=== PATIENT | male | born 1935 | race Caucasian/White ===

== ENCOUNTER 2020-01-10 05:28 | Outpatient (REF) | payer MEDICARE, SELFPAY ==
[2020-01-10 08:09] LABS: MANUAL DIFF FLAG NO
[2020-01-10 08:19] LABS: Basophils Percent Auto 0.2 % (0-2); Eosinophils Absolute Auto 0.2 X10*3/uL (0.0-0.4); Eosinophils Percent Auto 3.7 % (0-4); Hematocrit 33.5 % (42-52); Hemoglobin 11.1 g/dl (14.0-18.0); Imm Gran Abs Auto 0.02 X10*3/uL (0.00-0.03); Imm Gran Pct Auto 0.3 % (0.0-0.4); Lymphocytes Absolute Auto 1.4 X10*3/uL (1.2-4.9); Lymphocytes Percent Auto 21.4 % (20-40); Mean Corpuscular HGB Conc 33.1 g/dl (31.0-36.0); Mean Corpuscular Hemoglobin 31.5 pg (27.0-33.0); Mean Corpuscular Volume 95.2 fL (80-98); Mean Platelet Volume 11.8 fL (9.4-12.4); Monocytes Absolute Auto 0.6 X10*3/uL (0.1-1.2); Monocytes Percent Auto 8.7 % (2-11); Neutrophils Absolute Auto 4.3 X10*3/uL (2.0-8.3); Neutrophils Percent Auto 65.7 % (45-73); Platelet Count 289 X10*3/uL (160-400); Red Blood Count 3.52 X10*6/uL (4.60-5.80); Red Cell Distribution Width 12.4 % (11.0-16.0); White Blood Count 6.5 X10*3/uL (4.8-10.8)
[2020-01-10 08:57] LABS: Alanine Aminotransferase 7 U/L (0-40); Albumin Level 3.6 g/dL (3.5-5.0); Alkaline Phosphatase 63 U/L (39-117); Anion Gap 11 (12-20); Aspartate Amino Transferase 13 U/L (5-37); Bilirubin Total 0.3 mg/dL (0.0-1.0); Blood Urea Nitrogen 21 mg/dL (9-16); Calcium 8.3 mg/dL (8.4-10.2); Carbon Dioxide 27 mmol/L (22-29); Chloride 106 mmol/L (96-108); Estimated Glomerular Filt Rate 46; Glucose Fasting 87 mg/dL (60-99); Sodium 140 mmol/L (135-145); Total Protein 6.4 g/dL (6.5-8.0)
== END 2020-01-10 05:29 | disposition home or self-care (01) ==
LOC: HO.HSH3W 05:28
PROVIDERS: Visit Provider Nurse Practitioner
DX: Z20.828 Contact with and (suspected) exposure to other viral communicable diseases (principal); D64.9 Anemia, unspecified; N18.9 Chronic kidney disease, unspecified
CPT/HCPCS: 36415; 80053; 82306; 85025; 87635

== ENCOUNTER 2020-01-13 10:45 | Outpatient (REF) | payer MEDICARE, SELFPAY | END 2020-01-13 10:46 | disposition home or self-care (01) | LOC: HO.HSH3W 10:45 | PROVIDERS: Visit Provider Internal Medicine Critical Care Medicine | DX: Z20.828 Contact with and (suspected) exposure to other viral communicable diseases (principal) | CPT/HCPCS: 87635 ==

== ENCOUNTER 2020-06-19 06:25 | Outpatient (REF) | payer MEDICARE, SELFPAY ==
[2020-06-19 08:13] LABS: MANUAL DIFF FLAG NO
[2020-06-19 08:19] LABS: Basophils Percent Auto 0.5 % (0-2); Eosinophils Absolute Auto 0.4 X10*3/uL (0.0-0.4); Hematocrit 34.6 % (42-52); Hemoglobin 11.3 g/dl (14.0-18.0); Imm Gran Abs Auto 0.02 X10*3/uL (0.00-0.03); Imm Gran Pct Auto 0.3 % (0.0-0.4); Lymphocytes Absolute Auto 1.5 X10*3/uL (1.2-4.9); Lymphocytes Percent Auto 24.7 % (20-40); Mean Corpuscular HGB Conc 32.7 g/dl (31.0-36.0); Mean Corpuscular Hemoglobin 31.7 pg (27.0-33.0); Mean Corpuscular Volume 96.9 fL (80-98); Mean Platelet Volume 11.6 fL (9.4-12.4); Monocytes Absolute Auto 0.5 X10*3/uL (0.1-1.2); Monocytes Percent Auto 8.1 % (2-11); Neutrophils Absolute Auto 3.8 X10*3/uL (2.0-8.3); Neutrophils Percent Auto 60.4 % (45-73); Platelet Count 289 X10*3/uL (160-400); Red Blood Count 3.57 X10*6/uL (4.60-5.80); Red Cell Distribution Width 12.5 % (11.0-16.0); White Blood Count 6.2 X10*3/uL (4.8-10.8)
[2020-06-19 08:49] LABS: Alanine Aminotransferase 7 U/L (0-40); Albumin Level 3.5 g/dL (3.5-5.0); Alkaline Phosphatase 62 U/L (39-117); Anion Gap 13 (12-20); Aspartate Amino Transferase 11 U/L (5-37); Bilirubin Total 0.3 mg/dL (0.0-1.0); Blood Urea Nitrogen 21 mg/dL (9-16); Calcium 8.2 mg/dL (8.4-10.2); Carbon Dioxide 27 mmol/L (22-29); Chloride 106 mmol/L (96-108); Estimated Glomerular Filt Rate 48; Glucose Fasting 86 mg/dL (60-99); Potassium 4.4 mmol/L (3.3-5.1); Sodium 142 mmol/L (135-145); Total Protein 6.4 g/dL (6.5-8.0)
[2020-06-19 09:09] LABS: Thyroid Stimulating Hormone 1.74 uIU/mL (0.32-4.0); Vitamin D 25-OH Total 33.9 ng/mL (>30)
== END 2020-06-19 06:26 | disposition home or self-care (01) ==
LOC: HO.HSH3W 06:25
PROVIDERS: Visit Provider Nurse Practitioner
DX: F03.90 Unspecified dementia, unspecified severity, without behavioral disturbance, psychotic disturbance, mood disturbance, and anxiety (principal); I12.9 Hypertensive chronic kidney disease with stage 1 through stage 4 chronic kidney disease, or unspecified chronic kidney disease; N18.9 Chronic kidney disease, unspecified; E55.9 Vitamin D deficiency, unspecified
CPT/HCPCS: 36415; 80053; 82306; 84443; 85025

== ENCOUNTER 2020-10-20 06:30 | Outpatient (REF) | payer MEDICARE, SELFPAY ==
[2020-10-20 07:40] LABS: MANUAL DIFF FLAG NO
[2020-10-20 07:43] LABS: Basophils Percent Auto 0.3 % (0-2); Eosinophils Absolute Auto 0.4 X10*3/uL (0.0-0.4); Eosinophils Percent Auto 4.9 % (0-4); Hematocrit 33.1 % (42-52); Hemoglobin 10.7 g/dl (14.0-18.0); Imm Gran Abs Auto 0.03 X10*3/uL (0.00-0.03); Imm Gran Pct Auto 0.4 % (0.0-0.4); Lymphocytes Absolute Auto 1.4 X10*3/uL (1.2-4.9); Lymphocytes Percent Auto 19.2 % (20-40); Mean Corpuscular HGB Conc 32.3 g/dl (31.0-36.0); Mean Corpuscular Hemoglobin 31.3 pg (27.0-33.0); Mean Corpuscular Volume 96.8 fL (80-98); Mean Platelet Volume 11.3 fL (9.4-12.4); Monocytes Absolute Auto 0.6 X10*3/uL (0.1-1.2); Monocytes Percent Auto 8.3 % (2-11); Neutrophils Absolute Auto 4.8 X10*3/uL (2.0-8.3); Neutrophils Percent Auto 66.9 % (45-73); Platelet Count 309 X10*3/uL (160-400); Red Blood Count 3.42 X10*6/uL (4.60-5.80); Red Cell Distribution Width 12.7 % (11.0-16.0); White Blood Count 7.2 X10*3/uL (4.8-10.8)
[2020-10-20 08:00] LABS: Alanine Aminotransferase 8 U/L (0-40); Albumin Level 3.5 g/dL (3.5-5.0); Alkaline Phosphatase 70 U/L (39-117); Anion Gap 11 (12-20); Aspartate Amino Transferase 12 U/L (5-37); Bilirubin Total 0.3 mg/dL (0.0-1.0); Blood Urea Nitrogen 25 mg/dL (9-16); Calcium 8.3 mg/dL (8.4-10.2); Carbon Dioxide 27 mmol/L (22-29); Chloride 105 mmol/L (96-108); Estimated Glomerular Filt Rate 47; Glucose Fasting 91 mg/dL (60-99); Potassium 4.1 mmol/L (3.3-5.1); Sodium 139 mmol/L (135-145); Total Protein 6.5 g/dL (6.5-8.0)
[2020-10-20 11:40] LABS: Iron 44 mcg/dL (45-160); Percent Iron Saturation 16 % (15-50); Total Iron Binding Capacity 273 mcg/dL (228-428); Unsaturated Iron Binding 229 ug/dL
[2020-10-20 12:00] LABS: Ferritin 102 ng/mL (20-250)
[2020-10-20 12:37] LABS: Folate 19.3 ng/mL (> or = 4.0); Vitamin B12 186 pg/mL (200-900)
== END 2020-10-20 06:31 | disposition home or self-care (01) ==
LOC: HO.HSH3W 06:30
PROVIDERS: Visit Provider Nurse Practitioner
DX: D64.9 Anemia, unspecified (principal); N18.9 Chronic kidney disease, unspecified
CPT/HCPCS: 36415; 80053; 82607; 82728; 82746; 83540; 85025

== ENCOUNTER 2020-10-22 05:47 | Outpatient (REF) | payer MEDICARE, SELFPAY ==
[2020-10-28 16:36] LABS: Intrinsic Factor Antibodies Negative (Negative)
== END 2020-10-22 05:48 | disposition home or self-care (01) ==
LOC: HO.HSH3W 05:47
PROVIDERS: Visit Provider Nurse Practitioner
DX: E53.8 Deficiency of other specified B group vitamins (principal)
CPT/HCPCS: 36415; 86340

== ENCOUNTER 2020-10-27 11:47 | Outpatient (REF) | payer MEDICARE, SELFPAY ==
[2020-10-27 12:10] LABS: MANUAL DIFF FLAG NO
[2020-10-27 12:12] LABS: Basophils Percent Auto 0.3 % (0-2); Eosinophils Absolute Auto 0.4 X10*3/uL (0.0-0.4); Eosinophils Percent Auto 5.3 % (0-4); Hematocrit 37.1 % (42-52); Hemoglobin 11.8 g/dl (14.0-18.0); Imm Gran Abs Auto 0.04 X10*3/uL (0.00-0.03); Imm Gran Pct Auto 0.5 % (0.0-0.4); Lymphocytes Absolute Auto 1.3 X10*3/uL (1.2-4.9); Lymphocytes Percent Auto 18.2 % (20-40); Mean Corpuscular HGB Conc 31.8 g/dl (31.0-36.0); Mean Corpuscular Hemoglobin 31.1 pg (27.0-33.0); Mean Corpuscular Volume 97.6 fL (80-98); Mean Platelet Volume 11.2 fL (9.4-12.4); Monocytes Absolute Auto 0.5 X10*3/uL (0.1-1.2); Monocytes Percent Auto 7.1 % (2-11); Neutrophils Percent Auto 68.6 % (45-73); Platelet Count 371 X10*3/uL (160-400); Red Cell Distribution Width 12.9 % (11.0-16.0); White Blood Count 7.3 X10*3/uL (4.8-10.8)
[2020-10-27 12:40] LABS: Troponin-I High Sensitivity 7.7 ng/L (<3.5-35.0)
[2020-10-27 13:11] LABS: Anion Gap 14 (12-20); Blood Urea Nitrogen 27 mg/dL (9-16); Carbon Dioxide 25 mmol/L (22-29); Chloride 106 mmol/L (96-108); Estimated Glomerular Filt Rate 40; Glucose Random 98 mg/dL (60-115); Magnesium 2.1 mg/dL (1.6-2.6); Potassium 4.6 mmol/L (3.3-5.1); Sodium 140 mmol/L (135-145)
== END 2020-10-27 11:48 | disposition home or self-care (01) ==
LOC: HO.HSH3W 11:47
PROVIDERS: Visit Provider Nurse Practitioner Acute Care
DX: R55 Syncope and collapse (principal)
CPT/HCPCS: 36415; 80048; 83735; 84484; 85025

== ENCOUNTER 2020-10-30 | Outpatient (REF) | payer MEDICARE, SELFPAY ==
[2020-10-30 08:38] LABS: Anion Gap 12 (12-20); Blood Urea Nitrogen 19 mg/dL (9-16); Calcium 8.1 mg/dL (8.4-10.2); Carbon Dioxide 23 mmol/L (22-29); Chloride 109 mmol/L (96-108); Estimated Glomerular Filt Rate 47; Glucose Fasting 89 mg/dL (60-99); Potassium 4.2 mmol/L (3.3-5.1); Sodium 140 mmol/L (135-145)
== END 2020-10-30 00:01 | disposition home or self-care (01) ==
LOC: HO.HSH3W
PROVIDERS: Visit Provider Nurse Practitioner Acute Care
DX: S37.009A Unspecified injury of unspecified kidney, initial encounter (principal); N18.9 Chronic kidney disease, unspecified; X58.XXXA Exposure to other specified factors, initial encounter; Y93.9 Activity, unspecified; Y92.9 Unspecified place or not applicable; Y99.9 Unspecified external cause status
CPT/HCPCS: 36415; 80048

== ENCOUNTER 2020-11-04 05:00 | Outpatient (REF) | payer MEDICARE, SELFPAY ==
[2020-11-04 07:48] LABS: MANUAL DIFF FLAG NO
[2020-11-04 07:50] LABS: Basophils Percent Auto 0.3 % (0-2); Eosinophils Absolute Auto 0.4 X10*3/uL (0.0-0.4); Eosinophils Percent Auto 5.9 % (0-4); Hematocrit 31.8 % (42-52); Hemoglobin 10.3 g/dl (14.0-18.0); Imm Gran Abs Auto 0.03 X10*3/uL (0.00-0.03); Imm Gran Pct Auto 0.5 % (0.0-0.4); Lymphocytes Absolute Auto 1.2 X10*3/uL (1.2-4.9); Lymphocytes Percent Auto 17.9 % (20-40); Mean Corpuscular HGB Conc 32.4 g/dl (31.0-36.0); Mean Corpuscular Hemoglobin 30.9 pg (27.0-33.0); Mean Corpuscular Volume 95.5 fL (80-98); Mean Platelet Volume 11.5 fL (9.4-12.4); Monocytes Absolute Auto 0.6 X10*3/uL (0.1-1.2); Monocytes Percent Auto 9.3 % (2-11); Neutrophils Absolute Auto 4.3 X10*3/uL (2.0-8.3); Neutrophils Percent Auto 66.1 % (45-73); Platelet Count 320 X10*3/uL (160-400); Red Blood Count 3.33 X10*6/uL (4.60-5.80); Red Cell Distribution Width 12.8 % (11.0-16.0); White Blood Count 6.5 X10*3/uL (4.8-10.8)
[2020-11-04 08:21] LABS: Anion Gap 12 (12-20); Blood Urea Nitrogen 21 mg/dL (9-16); Calcium 8.3 mg/dL (8.4-10.2); Carbon Dioxide 25 mmol/L (22-29); Chloride 106 mmol/L (96-108); Estimated Glomerular Filt Rate 46; Glucose Random 89 mg/dL (60-115); Potassium 4.4 mmol/L (3.3-5.1); Sodium 139 mmol/L (135-145)
== END 2020-11-04 05:01 | disposition home or self-care (01) ==
LOC: HO.HSH3W 05:00
PROVIDERS: Visit Provider Nurse Practitioner Acute Care
DX: N19 Unspecified kidney failure (principal)
CPT/HCPCS: 36415; 80048; 85025

== ENCOUNTER 2020-12-02 05:00 | Outpatient (REF) | payer MEDICARE, SELFPAY ==
[2020-12-02 07:29] LABS: MANUAL DIFF FLAG NO
[2020-12-02 07:32] LABS: Basophils Percent Auto 0.3 % (0-2); Eosinophils Absolute Auto 0.4 X10*3/uL (0.0-0.4); Eosinophils Percent Auto 5.8 % (0-4); Hematocrit 33.5 % (42-52); Hemoglobin 10.7 g/dl (14.0-18.0); Imm Gran Abs Auto 0.02 X10*3/uL (0.00-0.03); Imm Gran Pct Auto 0.3 % (0.0-0.4); Lymphocytes Absolute Auto 1.2 X10*3/uL (1.2-4.9); Lymphocytes Percent Auto 18.1 % (20-40); Mean Corpuscular HGB Conc 31.9 g/dl (31.0-36.0); Mean Corpuscular Hemoglobin 31.1 pg (27.0-33.0); Mean Corpuscular Volume 97.4 fL (80-98); Mean Platelet Volume 11.7 fL (9.4-12.4); Monocytes Absolute Auto 0.5 X10*3/uL (0.1-1.2); Monocytes Percent Auto 7.8 % (2-11); Neutrophils Absolute Auto 4.4 X10*3/uL (2.0-8.3); Neutrophils Percent Auto 67.7 % (45-73); Platelet Count 306 X10*3/uL (160-400); Red Blood Count 3.44 X10*6/uL (4.60-5.80); White Blood Count 6.5 X10*3/uL (4.8-10.8)
== END 2020-12-02 05:01 ==
LOC: HO.HSH3W 05:00
PROVIDERS: Visit Provider Nurse Practitioner
DX: D64.9 Anemia, unspecified (principal)
CPT/HCPCS: 36415; 85025

== ENCOUNTER 2020-12-17 06:27 | Outpatient (REF) | payer MEDICARE, SELFPAY ==
[2020-12-17 08:05] LABS: MANUAL DIFF FLAG NO
[2020-12-17 08:20] LABS: Basophils Percent Auto 0.1 % (0-2); Eosinophils Absolute Auto 0.4 X10*3/uL (0.0-0.4); Eosinophils Percent Auto 5.6 % (0-4); Hematocrit 33.1 % (42-52); Hemoglobin 10.5 g/dl (14.0-18.0); Imm Gran Abs Auto 0.03 X10*3/uL (0.00-0.03); Imm Gran Pct Auto 0.4 % (0.0-0.4); Lymphocytes Absolute Auto 1.1 X10*3/uL (1.2-4.9); Lymphocytes Percent Auto 15.3 % (20-40); Mean Corpuscular HGB Conc 31.7 g/dl (31.0-36.0); Mean Corpuscular Hemoglobin 31.1 pg (27.0-33.0); Mean Corpuscular Volume 97.9 fL (80-98); Mean Platelet Volume 11.6 fL (9.4-12.4); Monocytes Absolute Auto 0.6 X10*3/uL (0.1-1.2); Monocytes Percent Auto 8.5 % (2-11); Neutrophils Percent Auto 70.1 % (45-73); Platelet Count 296 X10*3/uL (160-400); Red Blood Count 3.38 X10*6/uL (4.60-5.80); Red Cell Distribution Width 13.1 % (11.0-16.0); White Blood Count 7.1 X10*3/uL (4.8-10.8)
[2020-12-17 08:55] LABS: Vitamin B12 444 pg/mL (200-900)
== END 2020-12-17 06:28 | disposition home or self-care (01) ==
LOC: HO.HSH3W 06:27
PROVIDERS: Visit Provider Nurse Practitioner
DX: E53.8 Deficiency of other specified B group vitamins (principal)
CPT/HCPCS: 36415; 82607; 85025

== ENCOUNTER 2021-01-19 07:05 | Outpatient (REF) | payer MEDICARE, SELFPAY ==
[2021-01-19 07:50] LABS: MANUAL DIFF FLAG NO
[2021-01-19 07:52] LABS: Basophils Percent Auto 0.3 % (0-2); Eosinophils Absolute Auto 0.5 X10*3/uL (0.0-0.4); Eosinophils Percent Auto 7.6 % (0-4); Hematocrit 33.2 % (42-52); Hemoglobin 10.5 g/dl (14.0-18.0); Imm Gran Abs Auto 0.01 X10*3/uL (0.00-0.03); Imm Gran Pct Auto 0.1 % (0.0-0.4); Lymphocytes Absolute Auto 1.5 X10*3/uL (1.2-4.9); Lymphocytes Percent Auto 22.5 % (20-40); Mean Corpuscular HGB Conc 31.6 g/dl (31.0-36.0); Mean Corpuscular Hemoglobin 30.7 pg (27.0-33.0); Mean Corpuscular Volume 97.1 fL (80-98); Mean Platelet Volume 11.5 fL (9.4-12.4); Monocytes Absolute Auto 0.6 X10*3/uL (0.1-1.2); Monocytes Percent Auto 8.2 % (2-11); Neutrophils Absolute Auto 4.1 X10*3/uL (2.0-8.3); Neutrophils Percent Auto 61.3 % (45-73); Platelet Count 297 X10*3/uL (160-400); Red Blood Count 3.42 X10*6/uL (4.60-5.80); White Blood Count 6.7 X10*3/uL (4.8-10.8)
== END 2021-01-19 07:06 | disposition home or self-care (01) ==
LOC: HO.HSH3W 07:05
PROVIDERS: Visit Provider Nurse Practitioner
DX: D64.9 Anemia, unspecified (principal)
CPT/HCPCS: 36415; 85025

== ENCOUNTER 2021-05-12 07:26 | Outpatient (REF) | payer MEDICARE, SELFPAY ==
[2021-05-12 08:28] LABS: Basophils Percent Auto 0.3 % (0-2); Eosinophils Absolute Auto 0.5 X10*3/uL (0.0-0.4); Eosinophils Percent Auto 7.9 % (0-4); Hemoglobin 11.9 g/dl (14.0-18.0); Imm Gran Abs Auto 0.02 X10*3/uL (0.00-0.03); Imm Gran Pct Auto 0.3 % (0.0-0.4); Lymphocytes Absolute Auto 1.3 X10*3/uL (1.2-4.9); Lymphocytes Percent Auto 21.4 % (20-40); MANUAL DIFF FLAG SCAN; Mean Corpuscular HGB Conc 32.2 g/dl (31.0-36.0); Mean Corpuscular Hemoglobin 31.1 pg (27.0-33.0); Mean Corpuscular Volume 96.6 fL (80.0-98.0); Monocytes Absolute Auto 0.5 X10*3/uL (0.1-1.2); Monocytes Percent Auto 7.6 % (2-11); Neutrophils Absolute Auto 3.7 x10*3/uL (2.0-8.3); Neutrophils Percent Auto 62.5 % (45-73); PLT CLUMP 1; Red Blood Count 3.83 X10*6/uL (4.60-5.80); Red Cell Distribution Width 12.8 % (11.0-16.0); SCAN SMEAR FLAG 1
[2021-05-12 08:51] LABS: Alanine Aminotransferase < 6 U/L (0-40); Albumin Level 3.5 g/dL (3.5-5.0); Alkaline Phosphatase 67 U/L (39-117); Anion Gap 13 (12-20); Aspartate Amino Transferase 11 U/L (5-37); Blood Urea Nitrogen 19 mg/dL (9-16); Calcium 8.7 mg/dL (8.4-10.2); Carbon Dioxide 25 mmol/L (22-29); Chloride 107 mmol/L (96-108); Estimated Glomerular Filt Rate 52; Glucose Fasting 88 mg/dL (60-99); Potassium 4.5 mmol/L (3.3-5.1); Sodium 140 mmol/L (135-145); Total Protein 6.4 g/dL (6.5-8.0)
[2021-05-12 08:59] LABS: White Blood Count 5.9 X10*3/uL (4.8-10.8)
[2021-05-12 09:03] LABS: SLIDE REVIEW VERIFIED
[2021-05-12 09:30] LABS: Bilirubin Total 0.4 mg/dL (0.0-1.0)
== END 2021-05-12 07:27 | disposition home or self-care (01) ==
LOC: HO.HSH3W 07:26
PROVIDERS: Visit Provider Nurse Practitioner Acute Care
DX: D64.9 Anemia, unspecified (principal); N18.9 Chronic kidney disease, unspecified
CPT/HCPCS: 36415; 80053; 85025

== ENCOUNTER 2021-11-15 05:50 | Outpatient (REF) | payer MEDICARE, SELFPAY ==
[2021-11-15 07:28] LABS: MANUAL DIFF FLAG NO
[2021-11-15 07:31] LABS: Basophils Percent Auto 0.5 % (0-2); Eosinophils Absolute Auto 0.3 X10*3/uL (0.0-0.4); Eosinophils Percent Auto 5.1 % (0-4); Hematocrit 35.2 % (42.0-52.0); Hemoglobin 11.1 g/dl (14.0-18.0); Imm Gran Abs Auto 0.03 X10*3/uL (0.00-0.03); Imm Gran Pct Auto 0.5 % (0.0-0.4); Lymphocytes Absolute Auto 1.3 X10*3/uL (1.2-4.9); Lymphocytes Percent Auto 19.9 % (20-40); Mean Corpuscular HGB Conc 31.5 g/dl (31.0-36.0); Mean Corpuscular Hemoglobin 30.9 pg (27.0-33.0); Mean Corpuscular Volume 98.1 fL (80.0-98.0); Mean Platelet Volume 11.3 fL (9.4-12.4); Monocytes Absolute Auto 0.6 X10*3/uL (0.1-1.2); Monocytes Percent Auto 8.9 % (2-11); Neutrophils Absolute Auto 4.3 x10*3/uL (2.0-8.3); Neutrophils Percent Auto 65.1 % (45-73); Platelet Count 298 X10*3/uL (160-400); Red Blood Count 3.59 X10*6/uL (4.60-5.80); Red Cell Distribution Width 12.6 % (11.0-16.0); White Blood Count 6.6 X10*3/uL (4.8-10.8)
[2021-11-15 08:00] LABS: Anion Gap 15 (12-20); Blood Urea Nitrogen 25 mg/dL (9-16); Calcium 8.3 mg/dL (8.4-10.2); Carbon Dioxide 27 mmol/L (22-29); Chloride 106 mmol/L (96-108); Estimated Glomerular Filt Rate 40; Glucose Fasting 95 mg/dL (60-99); Potassium 4.5 mmol/L (3.3-5.1); Sodium 143 mmol/L (135-145)
== END 2021-11-15 05:51 | disposition home or self-care (01) ==
LOC: HO.HSH3W 05:50
PROVIDERS: Visit Provider Internal Medicine Interventional Cardiology
DX: N18.30 Chronic kidney disease, stage 3 unspecified (principal); D63.1 Anemia in chronic kidney disease; C61 Malignant neoplasm of prostate
CPT/HCPCS: 36415; 80048; 84153; 85025

== ENCOUNTER 2021-11-24 05:30 | Outpatient (REF) | payer MEDICARE, SELFPAY ==
[2021-11-24 08:44] LABS: Appearance Urine Cloudy; Color Urine Yellow; Glucose Urine UA Negative (Negative); Leukocyte Esterase Urine Large (3+) (Negative); Nitrite Urine Negative (Negative); PH 6.5 (5.0-9.0); Urine Blood Small (1+) (Negative); Urine Ketones Negative (Negative); Urine Protein Trace mg/dL (Neg-Trace)
[2021-11-24 08:46] LABS: Bacteria Urine Trace (None Seen); Hyaline Casts Urine 0-2 /LPF (0-2); Squamous Epithelial Cell Urine 0-2 /HPF (0-2); UACC Culture Trigger YES; WBC Urine >50 /HPF (0-5)
== END 2021-11-24 05:31 | disposition home or self-care (01) ==
LOC: HO.HSH3W 05:30
PROVIDERS: Visit Provider Nurse Practitioner
DX: N39.0 Urinary tract infection, site not specified (principal)
CPT/HCPCS: 81001; 87086; 87088

== ENCOUNTER 2022-01-05 05:36 | Outpatient (REF) | payer MEDICARE, SELFPAY ==
[2022-01-05 06:14] LABS: MANUAL DIFF FLAG NO
[2022-01-05 06:39] LABS: Appearance Urine Turbid; Color Urine Yellow; Glucose Urine UA Negative (Negative); Leukocyte Esterase Urine Negative (Negative); Nitrite Urine Negative (Negative); Specific Gravity - Urine 1.025 (1.005-1.025); Urine Blood Negative (Negative); Urine Ketones Trace mg/dL (Negative); Urine Protein Trace mg/dL (Neg-Trace)
[2022-01-05 06:53] LABS: Basophils Percent Auto 0.3 % (0-2); Eosinophils Absolute Auto 0.4 X10*3/uL (0.0-0.4); Eosinophils Percent Auto 5.6 % (0-4); Hematocrit 34.1 % (42.0-52.0); Hemoglobin 10.9 g/dl (14.0-18.0); Imm Gran Abs Auto 0.02 X10*3/uL (0.00-0.03); Imm Gran Pct Auto 0.3 % (0.0-0.4); Lymphocytes Absolute Auto 1.4 X10*3/uL (1.2-4.9); Lymphocytes Percent Auto 22.3 % (20-40); Mean Corpuscular Hemoglobin 31.1 pg (27.0-33.0); Mean Corpuscular Volume 97.4 fL (80.0-98.0); Mean Platelet Volume 11.4 fL (9.4-12.4); Monocytes Absolute Auto 0.6 X10*3/uL (0.1-1.2); Neutrophils Absolute Auto 3.9 x10*3/uL (2.0-8.3); Neutrophils Percent Auto 62.5 % (45-73); Platelet Count 280 X10*3/uL (160-400); White Blood Count 6.2 X10*3/uL (4.8-10.8)
[2022-01-05 07:06] LABS: Alanine Aminotransferase 6 U/L (0-40); Albumin Level 3.5 g/dL (3.5-5.0); Alkaline Phosphatase 62 U/L (39-117); Anion Gap 16 (12-20); Aspartate Amino Transferase 12 U/L (5-37); Bilirubin Total 0.3 mg/dL (0.0-1.0); Blood Urea Nitrogen 27 mg/dL (9-16); Calcium 8.3 mg/dL (8.4-10.2); Carbon Dioxide 20 mmol/L (22-29); Chloride 110 mmol/L (96-108); Estimated Glomerular Filt Rate 44; Glucose Fasting 92 mg/dL (60-99); Potassium 4.5 mmol/L (3.3-5.1); Sodium 141 mmol/L (135-145); Total Protein 6.6 g/dL (6.5-8.0)
== END 2022-01-05 05:37 | disposition home or self-care (01) ==
LOC: HO.HSH3W 05:36
PROVIDERS: Visit Provider Nurse Practitioner
DX: R41.82 Altered mental status, unspecified (principal)
CPT/HCPCS: 36415; 80053; 81003; 85025

== ENCOUNTER 2022-03-02 00:04 | Emergency (ER) | payer OTHER, MEDICARE, SELFPAY ==
--- NOTE | ~2022-03-02 | XR_ITS ---
EXAMINATION: XR CHEST CLINICAL INFORMATION: Altered mental status. COMPARISON: None TECHNIQUE: Frontal view of the chest was obtained. Repeat frontal view. FINDINGS: The second radiograph demonstrates better inspiratory effort. A single coarse reticular opacity is noted in the right lung base may represent platelike atelectasis. No focal pulmonary consolidation identified. No effusions or pneumothoraces noted. Low lung volumes persist on the second chest radiograph. Making allowances for low lung volumes, a normal pattern of pulmonary vasculature is identified. Mild convex rightward curvature of the thoracic spine is noted. Mild aortic calcific atherosclerosis. Normal cardiac silhouette size. XR/XR chest 1V IMPRESSION: *Low lung volumes; otherwise no acute cardiopulmonary abnormalities identified.
--- NOTE | ~2022-03-02 | CT_ITS ---
EXAMINATION: CT HEAD WITHOUT CONTRAST CLINICAL INFORMATION: Altered mental status. COMPARISON: None TECHNIQUE: Contiguous axial imaging was performed from the skull base to vertex without intravenous administration of contrast. This CT examination was performed using dose optimization techniques as appropriate, variously including the following: *Automated exposure control *Adjustment of mA and/or kV according to patient size (this includes techniques or standardized protocols for targeted exams where dose is matched to indication/reason for exam; i.e. extremities or head) *Use of iterative reconstruction technique DLP: 679 mGy-cm FINDINGS: Moderate diffuse commensurate prominence of ventricles and sulci. Moderate periventricular white matter patchy hypodensities. No intrarenal hemorrhage, tumors or acute infarcts visualized. Segmental calcific atherosclerosis of the cavernous portions of the internal carotid arteries. Mild mucosal thickening within the left maxillary sinus. Bilateral ocular lens extractions. Mild mucosal thickening within the left maxillary sinus. No mastoid or middle ear cavity effusions. CT/CT head/brain wo IV con IMPRESSION: 1. No acute intracranial abnormalities. 2. Moderate white matter chronic small vessel ischemic changes.
[2022-03-02 00:14] VITALS: BP 132/82; BP 143/69; PULSE 73; PULSE 80; RESP 16; TEMP 36.7; O2SAT 95; O2SAT 99; BMI 25.0
--- NOTE | 2022-03-02 00:18 | ECG_ITS ---
Test Reason : AMS Blood Pressure : / mmHG Vent. Rate : 071 BPM Atrial Rate : 071 BPM P-R Int : 178 ms QRS Dur : 082 ms QT Int : 404 ms P-R-T Axes : 073 037 064 degrees QTc Int : 439 ms Normal sinus rhythm Normal ECG No previous ECGs available Referred By: Chani Patterson Electronically Signed By:SHALINI BAILON MD
--- NOTE | 2022-03-02 00:20 | ED_ITS ---
HPI - Altered Mental Status General Chief Complaint: General Medical Stated Complaint: ams Time Seen by Provider: 03/02/22 00:15 Source: patient and EMS (EMS report was reviewed) Mode of arrival: EMS Limitations: altered mental status History of Present Illness HPI narrative: 86-year-old male with history of dementia and short-term memory deficit came in by EMS from [facility] for evaluation of change mental status and patient wandering in the unit and call 911. Noticed by the nursing staff that the patient is more confused and more disoriented than his baseline, patient baseline is awake but disoriented and follow simple commands. History was limited due to patient dementia and change mental status according to the prison and EMS report patient had no trauma or head injury, no fev er was reported. Related Data Allergies Allergy/AdvReac Type Severity Reaction Status Date / Time No Known Allergies Allergy Verified 03/02/22 00:18 Review of Systems Review of Systems: Yes Unobtainable due to mental status PMFSH Social History Social History Advance Directives: No Advance Directives Information Provided: No Physical Exam ED Vital Signs: Vital Signs - 24 hr 03/02/22 00:14 Temperature 98.1 F Pulse Rate 73 Respiratory Rate 16 Blood Pressure 143/69 H Pulse Oximetry 95 Oxygen Delivery Method Room Air BMI result Body Mass Index 25.0 Vital signs have been reviewed as appeared to be correct. Blood pressure normal. Heart rate normal. Respiration rate normal. Temperature normal. Oxygen saturation normal. Appearance: Alert disoriented. No acute distress. Head: Normal external exam. Normocephalic. Atraumatic. No Zendejas signs noted. No raccoon eyes noted Eyes: PERRLA. EOMI. Conjunctiva and sclera normal. Eyelids normal. ENT: TM's Normal. Pharynx normal. Uvula midline. Moist mucous membranes. No trismus noted. No drooling noted. No muffled voice noted. Neck: Normal inspection. Neck supple. FROM. No adenopathy. Thyroid Normal. No meningeal signs. No neck mass noted. CVS: Normal heart rate and rhythm. Heart sound normal. No murmurs noted. Pulses normal throughout. Respiratory: No respiratory distress. Painless inspiration. Breath sounds normal. No wheezes/rales/rhonchi noted. Chest nontender. No accessory muscle usage noted or decreased air movement noted. Abdomen: Soft and nontender. Bowel sounds normal in all 4 quadrants. No distention noted. No organomegaly noted. No visible injury noted. Back: No CVA tenderness. Full range of motion noted. Skin: Skin warm and dry. Normal skin color. Normal skin turgor. No rashes/lesions/lacerations noted. Extremities: No lower extremity edema. Extremities exhibit normal range of motion. Extremities nontender. Neuro: Cranial nerve exam: II-XII are grossly intact No motor deficit. No sensory deficit. Reflexes normal. Course Course Course Narrative: 86-year-old male with history of dementia and short-term memory presented by EMS from [facility] for acute mental status change, reviewing patient's labs and head CT and chest x-ray which is unremarkable at patient's baseline levels. Impression worsening of chronic dementia. Medical Decision Making Medical Decision Making Differential Diagnoses: Differential diagnosis Differential Diagnosis: The differential diagnosis associated with the patient?s presentation includes: Infection/dementia/intracranial pathology/pneumonia/UTI/electrolyte disturbance. Lab Attestation: I reviewed the patient's lab results. Independent interpretation of EKG, rhythm strip, radiology study: Independent interp EKG,rhythm strip, radiology study I performed an independent interpretation of the: EKG My interpretation is Normal sinus rhythm at 71 beats per minutes, normal intervals, normal axis deviation, no ST-T changes. Discharge Plan Discharge Clinical Impression: Dementia Patient Disposition: er [facility] Transfer Details: [facility] Instructions: Dementia (ED) Referrals: Tatum Bunn NP [Primary Care Provider] -
[2022-03-02 00:40] LABS: MANUAL DIFF FLAG NO
[2022-03-02 00:46] LABS: Basophils Percent Auto 0.3 % (0-2); Eosinophils Absolute Auto 0.3 X10*3/uL (0.0-0.4); Eosinophils Percent Auto 3.9 % (0-4); Hematocrit 37.1 % (42.0-52.0); Hemoglobin 11.7 g/dl (14.0-18.0); Imm Gran Abs Auto 0.04 X10*3/uL (0.00-0.03); Imm Gran Pct Auto 0.5 % (0.0-0.4); Lymphocytes Absolute Auto 1.3 X10*3/uL (1.2-4.9); Lymphocytes Percent Auto 16.7 % (20-40); Mean Corpuscular HGB Conc 31.5 g/dl (31.0-36.0); Mean Corpuscular Hemoglobin 30.7 pg (27.0-33.0); Mean Corpuscular Volume 97.4 fL (80.0-98.0); Mean Platelet Volume 10.6 fL (9.4-12.4); Monocytes Absolute Auto 0.7 X10*3/uL (0.1-1.2); Monocytes Percent Auto 9.1 % (2-11); Neutrophils Absolute Auto 5.3 x10*3/uL (2.0-8.3); Neutrophils Percent Auto 69.5 % (45-73); Platelet Count 350 X10*3/uL (160-400); Red Blood Count 3.81 X10*6/uL (4.60-5.80); Red Cell Distribution Width 13.2 % (11.0-16.0); White Blood Count 7.7 X10*3/uL (4.8-10.8)
[2022-03-02 00:58] LABS: Alanine Aminotransferase 12 U/L (0-40); Alkaline Phosphatase 83 U/L (39-117); Anion Gap 15 (12-20); Aspartate Amino Transferase 15 U/L (5-37); Bilirubin Direct < 0.2 mg/dL (0.0-0.5); Blood Urea Nitrogen 28 mg/dL (9-16); Calcium 8.9 mg/dL (8.4-10.2); Carbon Dioxide 25 mmol/L (22-29); Chloride 106 mmol/L (96-108); Creatinine Clr Calc Pharmacy 29.8; Estimated Glomerular Filt Rate 39; Glucose Random 105 mg/dL (60-115); Lipase 32 U/L (8-78); Potassium 4.8 mmol/L (3.3-5.1); Sodium 141 mmol/L (135-145); Total Protein 7.4 g/dL (6.5-8.0)
[2022-03-02 00:59] LABS: B Type Natriuretic Peptide 145 pg/mL (<100); Troponin-I High Sensitivity 6.7 ng/L (<3.5-35.0)
[2022-03-02 01:16] LABS: Influenza A PCR NEGATIVE (Negative); Influenza B PCR NEGATIVE (Negative); Resp Syncy Virus RNA Qual PCR NEGATIVE (Negative); SARS COV2 PCR INHOUSE NEGATIVE (Negative)
[2022-03-02 01:50] LABS: Bilirubin Total 0.3 mg/dL (0.0-1.0)
[2022-03-02 02:15] LABS: Appearance Urine Clear; Color Urine Yellow; Glucose Urine UA Negative (Negative); Leukocyte Esterase Urine Negative (Negative); Nitrite Urine Negative (Negative); PH 5.5 (5.0-9.0); Specific Gravity - Urine 1.025 (1.005-1.025); Urine Blood Negative (Negative); Urine Ketones Trace mg/dL (Negative); Urine Protein Trace mg/dL (Neg-Trace)
[2022-03-02 03:09] VITALS: BP 138/58; PULSE 69; RESP 18; TEMP 36.4; O2SAT 96
--- NOTE | 2022-03-02 03:10 | PC.NURSE ---
Call out to [facility] @[phone] to book BLS transport back to [facility] ETA of 0800 was given
[2022-03-02 06:27] VITALS: BP 122/76; PULSE 80; RESP 18; TEMP 37; O2SAT 96
[2022-03-02 07:18] VITALS: BP 151/68; PULSE 77; RESP 18; TEMP 36.8; O2SAT 97
== END 2022-03-02 09:04 | disposition skilled nursing facility (03) ==
PROVIDERS: Emergency Provider Emergency Medicine; PCP Nurse Practitioner
DX: F03.90 Unspecified dementia, unspecified severity, without behavioral disturbance, psychotic disturbance, mood disturbance, and anxiety (principal); R41.82 Altered mental status, unspecified; R06.02 Shortness of breath; Z20.822 Contact with and (suspected) exposure to COVID-19; Z79.899 Other long term (current) drug therapy
CPT/HCPCS: 0241U; 36415; 70450; 71045; 80048; 80076; 81003; 83690; 83880; 84484; 85025; 93005; 99284; 99285

== ENCOUNTER 2022-05-13 05:41 | Emergency (ER) | payer OTHER, SELFPAY ==
--- NOTE | ~2022-05-13 | CT_ITS ---
EXAMINATION: CT ABDOMEN AND PELVIS WITH CONTRAST CLINICAL INFORMATION: Abdominal pain. COMPARISON: None TECHNIQUE: Multidetector volumetric images were obtained from the superior aspect of the liver through the pubic symphysis following administration 85 mL of Omnipaque 350 intravenous contrast. Sagittal and coronal reformatted images were obtained on the technologist's workstation. Oral contrast: No This CT examination was performed using dose optimization techniques as appropriate, variously including the following: *Automated exposure control *Adjustment of mA and/or kV according to patient size (this includes techniques or standardized protocols for targeted exams where dose is matched to indication/reason for exam; i.e. extremities or head) *Use of iterative reconstruction technique DLP: 697 mGy-cm FINDINGS: LUNG BASES: Partial visualization of mild bilateral gynecomastia. Mild bibasilar atelectasis/scarring. No pleural or pericardial effusions. Coarse mitral annular calcifications. LIVER, GALLBLADDER, AND BILIARY TREE: No hepatic abnormality. Very small calcified gallstones without surrounding abnormality. PANCREAS: Unremarkable. SPLEEN: Unremarkable. ADRENAL GLANDS: Unremarkable. KIDNEYS AND URETERS: Small cysts bilaterally. The largest cyst is seen in the lower pole the left kidney measuring approximately 2.3 cm (image 58, series 9). Other foci are too small likely characterize but likely represent cysts as well requiring follow-up. No nephrolithiasis or hydronephrosis. BLADDER: Mildly distended with mild diffuse mural thickening and trabeculation. GASTROINTESTINAL TRACT: The stomach and proximal small bowel are unremarkable. A nonobstructive distal ileal loop extends into a moderate size right inguinal hernia. Mural fatty infiltration is seen from this level distally to the terminal ileum into the ascending colon with fatty infiltration more pronounced in the colon. Distal to the hernia loops is an anastomosis noted intact with intraluminal small fluid collection with air-fluid level without surrounding abnormality. The appendix is not visualized. The distal colon shows mild diverticulosis in the sigmoid colon without surrounding abnormality. The rectum is unremarkable. ABDOMINAL WALL: No significant hernia is appreciated. LYMPH NODES: No lymphadenopathy. VASCULAR: Unremarkable. PELVIC VISCERA: Unremarkable. OSSEOUS STRUCTURES: Approximate 15% superior plate compression deformity of L3. No suspicious abnormality. CT/CT abdomen pelvis w IV con IMPRESSION: 1. Moderate size right inguinal hernia containing a nonobstructive distal ileal loop. Mural fatty infiltration is seen from the right inguinal hernia. Loop Distally to the terminal ileum into the ascending colon with fatty infiltration more pronounced in the colon. This is nonspecific, but can be seen as a sequelae of prior inflammatory bowel disease. No definitive active inflammation or obstruction is seen. 2. Mild sigmoid diverticulosis without evidence for acute diverticulitis. 3. Cholelithiasis without evidence for acute cholecystitis. 4. Mild distention of the urinary bladder with mild diffuse mural thickening and trabeculation. This could be secondary to chronic urinary retention. Correlate with urine output.
[2022-05-13 05:45] VITALS: BP 160/78; PULSE 62; O2SAT 98
[2022-05-13 05:48] VITALS: BP 129/69; PULSE 63; RESP 18; TEMP 36.5; O2SAT 100; BMI 28.2
[2022-05-13 06:37] LABS: Influenza A PCR NEGATIVE (Negative); Influenza B PCR NEGATIVE (Negative); Resp Syncy Virus RNA Qual PCR NEGATIVE (Negative); SARS COV2 PCR INHOUSE NEGATIVE (Negative)
--- NOTE | 2022-05-13 06:47 | ED_ITS ---
HPI - General Adult General Chief complaint: Abdominal Pain Stated complaint: abd pain Time Seen by Provider: 05/13/22 06:42 Source: EMS Mode of arrival: EMS History of Present Illness HPI narrative: This is a 86 years old man residential resident sent for evaluation of abdominal pain, according to the residential note the patient is having upper lower abdominal pain. Patient is unable to give me any history he is disoriented to time and place he tells me I just do not feel good there is no reported fever there is no reported vomiting there is no reported diarrhea. Patient has history of dementia, chronic disease, anemia, essential hypertension Onset (ago): day(s) (1) Location: abdomen Radiation: non-radiation Severity: moderate Pain Consistency: constant Relieving factors: none Exacerbating factors: none Related Data Allergies Allergy/AdvReac Type Severity Reaction Status Date / Time No Known Allergies Allergy Verified 03/02/22 00:18 Review of Systems Constitutional: Constitutional: Reports no additional constitutional complaints Cardiovascular: Cardiovascular: Reports no additional cardiovascular complaints Respiratory: Respiratory: Reports no additional respiratory complaints Gastrointestinal: Gastrointestinal: Reports abdominal pain Neurologic: Reports confusion Psychiatric: Psychiatric: Reports confusion PMFSH Past Medical History [facility] Narrative: Dementia, inflammatory bowel disease, iron deficiency anemia, hypertension Source: old records reviewed Social History Social History Smoked in Last 30 Days: No Use of substances other than those prescribed or required for medical reasons: No Any prior treatment program specific to substance use: No Advance Directives: Yes Advance Directives on File: Yes Advance Directives Date on File: 03/03/22 Physical Exam ED Vital Signs: Vital Signs - 24 hr 05/13/22 05:48 05/13/22 11:06 Temperature 97.7 F 98.0 F Pulse Rate 63 70 Respiratory Rate 18 18 Blood Pressure 129/69 168/69 H Pulse Oximetry 100 97 Oxygen Delivery Method Room Air Room Air BMI result Body Mass Index 28.2 Const General: cooperative, comfortable, no acute distress, well developed, alert, awake and confusion Nutritional Appearance: well nourished Orientation/consciousness: patient oriented x3 and confusion HENMT Head: Yes normal to inspection Ears: hearing grossly normal bilaterally Face and sinus: Yes normal facial exam Mouth: Normal oral and palatal mucosa present Throat: Yes posterior oropharynx normal Neck Neck: Yes normal visual inspection, Yes full ROM and Yes no lymphadenopathy Chest Chest palpation & inspection: normal inspection of the chest Resp Effort & Inspection: normal respiratory effort Cardio Jugular venous distension: no JVD Rate: regular rate Rhythm: regular rhythm GI Inspection: Yes normal to inspection Palpation (GI): Soft to palpation General: Yes no CVA tenderness Back/Spine/Pelvis Back: no CVA tenderness Skin General skin exam: no rashes or lesions noted and elasticity normal Lesions: no lesions Rashes: no rashes Neuro General: patient oriented x3 and confusion Cranial nerves: Yes CN's II-XII intact bilaterally Motor exam (neuro): 5/5 motor strength present throughout Extrem General: Yes normal to inspection and Yes full ROM Right upper extremity: normal to inspection Left upper extremity: normal to inspection Course Reevaluation(s) Reevaluation #1: CT scan shows right inguinal hernia without obstruction, the CT scan was reviewed with the surgeon on-call Dr. Pereira, per Dr. Evans is the patient is a current can be discharged back to the residential. Time: 10:17 Medications Administered Discontinued Medications Generic Name Dose Route Start Last Admin Trade Name Freq PRN Reason Stop Dose Admin Sodium Chloride 1,000 mls @ 999 mls/hr 05/13/22 07:00 05/13/22 08:11 Ns IVCONT 05/13/22 08:00 Infused .Q1H1M SRAVANTHI Infusion Iohexol 85 ml 05/13/22 08:09 05/13/22 08:11 Iohexol 350 Mg/Ml 100 Ml Infus..Btl IV 05/13/22 08:10 85 ml ONCE ONE Administration Medical Decision Making Medical Decision Making [facility] Narrative: Patient presented with abdominal pain he has dementia will do labs and CT Differential Diagnosis Differential Diagnoses: The differential diagnosis associated with the presentation includes SBO/colitis/diverticulitis Admission/Observation Consideration of admission/observation: Escalation of care including admission/observation considered Consult Healthcare Provider Management of the patient was discussed with: Utility Technician Spoke with Dr Pereira OK to d/c to [facility] no obstruction Lab Data [facility] Lab Attestation statement: I reviewed the patient's lab results. 05/13/22 07:00 05/13/22 07:00 Labs: Lab Results 05/13/22 05/13/22 05/13/22 Range/Units 05:56 07:00 07:00 WBC 6.3 (4.8-10.8) X10*3/uL RBC 3.75 L (4.60-5.80) X10*6/uL Hgb 11.9 L (14.0-18.0) g/dl Hct 36.2 L (42.0-52.0) % MCV 96.5 (80.0-98.0) fL MCH 31.7 (27.0-33.0) pg MCHC 32.9 (31.0-36.0) g/dl RDW 12.8 (11.0-16.0) % Plt Count 297 (160-400) X10*3/uL MPV 10.7 (9.4-12.4) fL Immature Gran % (Auto) 0.5 H (0.0-0.4) % Neut % (Auto) 66.3 (45-73) % Lymph % (Auto) 18.5 L (20-40) % [place] % (Auto) 9.1 (2-11) % Eos % (Auto) 5.3 H (0-4) % Baso % (Auto) 0.3 (0-2) % Lymph # (Auto) 1.2 (1.2-4.9) X10*3/uL [place] # (Auto) 0.6 (0.1-1.2) X10*3/uL Eos # (Auto) 0.3 (0.0-0.4) X10*3/uL Baso # (Auto) 0.0 (0.0-0.2) X10*3/uL Abs Immat Gran (auto) 0.03 (0.00-0.03) X10*3/uL Absolute Neuts (auto) 4.2 (2.0-8.3) x10*3/uL Absolute Nucleated RBC 0.000 (0.0-0.012) X10*3/uL Nucleated RBC % (auto) 0.0 (0.0-0.2) /100WBC Sodium 142 (135-145) mmol/L Potassium 4.6 (3.3-5.1) mmol/L Chloride 108 (96-108) mmol/L Carbon Dioxide 24 (22-29) mmol/L Anion Gap 15 (12-20) BUN 21 H (9-16) mg/dL Creatinine 1.33 (0.5-1.4) mg/dL Estim Creat Clear Calc 40.8 Estimated GFR 51 Random Glucose 91 (60-115) mg/dL Calcium 8.4 (8.4-10.2) mg/dL Total Bilirubin 0.4 (0.0-1.0) mg/dL Direct Bilirubin < 0.2 (0.0-0.5) mg/dL AST 13 (5-37) U/L ALT 8 (0-40) U/L Alkaline Phosphatase 70 (39-117) U/L Total Protein 6.6 (6.5-8.0) g/dL Albumin 3.5 (3.5-5.0) g/dL Lipase (8-78) U/L Influenza Type A (PCR) NEGATIVE (Negative) Influenza Type B (PCR) NEGATIVE (Negative) RSV RNA Qual (PCR) NEGATIVE (Negative) SARS-CoV-2 RNA (RT-PCR) NEGATIVE (Negative) 05/13/22 Range/Units 07:00 WBC (4.8-10.8) X10*3/uL RBC (4.60-5.80) X10*6/uL Hgb (14.0-18.0) g/dl Hct (42.0-52.0) % MCV (80.0-98.0) fL MCH (27.0-33.0) pg MCHC (31.0-36.0) g/dl RDW (11.0-16.0) % Plt Count (160-400) X10*3/uL MPV (9.4-12.4) fL Immature Gran % (Auto) (0.0-0.4) % Neut % (Auto) (45-73) % Lymph % (Auto) (20-40) % [place] % (Auto) (2-11) % Eos % (Auto) (0-4) % Baso % (Auto) (0-2) % Lymph # (Auto) (1.2-4.9) X10*3/uL [place] # (Auto) (0.1-1.2) X10*3/uL Eos # (Auto) (0.0-0.4) X10*3/uL Baso # (Auto) (0.0-0.2) X10*3/uL Abs Immat Gran (auto) (0.00-0.03) X10*3/uL Absolute Neuts (auto) (2.0-8.3) x10*3/uL Absolute Nucleated RBC (0.0-0.012) X10*3/uL Nucleated RBC % (auto) (0.0-0.2) /100WBC Sodium (135-145) mmol/L Potassium (3.3-5.1) mmol/L Chloride (96-108) mmol/L Carbon Dioxide (22-29) mmol/L Anion Gap (12-20) BUN (9-16) mg/dL Creatinine (0.5-1.4) mg/dL Estim Creat Clear Calc Estimated GFR Random Glucose (60-115) mg/dL Calcium (8.4-10.2) mg/dL Total Bilirubin (0.0-1.0) mg/dL Direct Bilirubin (0.0-0.5) mg/dL AST (5-37) U/L ALT (0-40) U/L Alkaline Phosphatase (39-117) U/L Total Protein (6.5-8.0) g/dL Albumin (3.5-5.0) g/dL Lipase 27 (8-78) U/L Influenza Type A (PCR) (Negative) Influenza Type B (PCR) (Negative) RSV RNA Qual (PCR) (Negative) SARS-CoV-2 RNA (RT-PCR) (Negative) Radiology Impression Discussion of test interpretation with radiology: I have reviewed the radiologist's reading. Radiologist Impression: VASCULAR: Unremarkable. PELVIC VISCERA: Unremarkable.? OSSEOUS STRUCTURES: Approximate 15% superior plate compression deformity of L3. No suspicious abnormality.? CT/CT abdomen pelvis w IV con IMPRESSION: 1.? Moderate size right inguinal hernia containing a nonobstructive distal ileal loop. Mural fatty infiltration is seen from the right inguinal hernia. Loop Distally to the terminal ileum into the ascending colon with fatty infiltration more pronounced in the colon. This is nonspecific, but can be seen as a sequelae of prior inflammatory bowel disease. No definitive active inflammation or obstruction is seen. 2.? Mild sigmoid diverticulosis without evidence for acute diverticulitis. 3.? Cholelithiasis without evidence for acute cholecystitis. 4.? Mild distention of the urinary bladder with mild diffuse mural thickening and trabeculation. This could be secondary to chronic urinary retention. Correlate with urine output. ? Dictated By: Alberto España MD Signed By: <Electronically signed by Alberto España MD in OV> 05/13/22929 DD/ 0810 Discharge Plan Discharge Clinical Impression: Inguinal hernia Patient Disposition: Home, Self-Care Instructions: Inguinal Hernia (ED) Additional Instructions: You have an inguinal hernia but there is no obstruction. At this time you could go back to the nursing facility come back to emergency room if he a vomiting pain in the right lower quadrant. Referrals: John Pereira MD [Physician] - 5 days Interventions: ED Discharge Assessment Last Done: 05/13/22 10:39 Discharge Date/Time: 05/13/22 12:21
[2022-05-13 07:10] LABS: MANUAL DIFF FLAG NO
[2022-05-13] MEDS: 0.9 % Sodium Chloride 1,000 ML 999 ML IVCONT (07:10)
[2022-05-13 07:15] LABS: Basophils Percent Auto 0.3 % (0-2); Eosinophils Absolute Auto 0.3 X10*3/uL (0.0-0.4); Eosinophils Percent Auto 5.3 % (0-4); Hematocrit 36.2 % (42.0-52.0); Hemoglobin 11.9 g/dl (14.0-18.0); Imm Gran Abs Auto 0.03 X10*3/uL (0.00-0.03); Imm Gran Pct Auto 0.5 % (0.0-0.4); Lymphocytes Absolute Auto 1.2 X10*3/uL (1.2-4.9); Lymphocytes Percent Auto 18.5 % (20-40); Mean Corpuscular HGB Conc 32.9 g/dl (31.0-36.0); Mean Corpuscular Hemoglobin 31.7 pg (27.0-33.0); Mean Corpuscular Volume 96.5 fL (80.0-98.0); Mean Platelet Volume 10.7 fL (9.4-12.4); Monocytes Absolute Auto 0.6 X10*3/uL (0.1-1.2); Monocytes Percent Auto 9.1 % (2-11); Neutrophils Absolute Auto 4.2 x10*3/uL (2.0-8.3); Neutrophils Percent Auto 66.3 % (45-73); Platelet Count 297 X10*3/uL (160-400); Red Blood Count 3.75 X10*6/uL (4.60-5.80); Red Cell Distribution Width 12.8 % (11.0-16.0); White Blood Count 6.3 X10*3/uL (4.8-10.8)
[2022-05-13 07:33] LABS: Alanine Aminotransferase 8 U/L (0-40); Albumin Level 3.5 g/dL (3.5-5.0); Alkaline Phosphatase 70 U/L (39-117); Anion Gap 15 (12-20); Aspartate Amino Transferase 13 U/L (5-37); Bilirubin Direct < 0.2 mg/dL (0.0-0.5); Bilirubin Total 0.4 mg/dL (0.0-1.0); Blood Urea Nitrogen 21 mg/dL (9-16); Calcium 8.4 mg/dL (8.4-10.2); Carbon Dioxide 24 mmol/L (22-29); Chloride 108 mmol/L (96-108); Creatinine Clr Calc Pharmacy 40.8; Estimated Glomerular Filt Rate 51; Glucose Random 91 mg/dL (60-115); Lipase 27 U/L (8-78); Potassium 4.6 mmol/L (3.3-5.1); Sodium 142 mmol/L (135-145); Total Protein 6.6 g/dL (6.5-8.0)
[2022-05-13] MEDS: iohexoL 350 MG/ML 100 ML INFUS..BTL 85 ML IV (08:11)
[2022-05-13 11:06] VITALS: BP 168/69; PULSE 70; RESP 18; TEMP 36.7; O2SAT 97
== END 2022-05-13 12:21 | disposition home or self-care (01) ==
PROVIDERS: Emergency Provider Emergency Medicine
DX: K40.90 Unilateral inguinal hernia, without obstruction or gangrene, not specified as recurrent (principal); Z20.822 Contact with and (suspected) exposure to COVID-19; Z20.828 Contact with and (suspected) exposure to other viral communicable diseases; I10 Essential (primary) hypertension; F03.90 Unspecified dementia, unspecified severity, without behavioral disturbance, psychotic disturbance, mood disturbance, and anxiety
CPT/HCPCS: 0241U; 36415; 74177; 80048; 80076; 83690; 85025; 96360; 99284; Q9967

== ENCOUNTER 2022-06-17 05:49 | Outpatient (REF) | payer MEDICARE, SELFPAY ==
[2022-06-17 09:57] LABS: Magnesium 1.9 mg/dL (1.6-2.6)
[2022-06-17 10:06] LABS: Thyroid Stimulating Hormone 2.14 uIU/mL (0.32-4.0); Vitamin D 25-OH Total 33.9 ng/mL (>30)
== END 2022-06-17 05:50 | disposition home or self-care (01) ==
LOC: HO.HSH3W 05:49
PROVIDERS: Visit Provider Nurse Practitioner Acute Care
DX: F03.90 Unspecified dementia, unspecified severity, without behavioral disturbance, psychotic disturbance, mood disturbance, and anxiety (principal); E55.9 Vitamin D deficiency, unspecified
CPT/HCPCS: 36415; 82306; 83735; 84443

== ENCOUNTER 2022-09-12 05:34 | Outpatient (REF) | payer MEDICARE, SELFPAY ==
[2022-09-12 06:51] LABS: MANUAL DIFF FLAG NO
[2022-09-12 06:55] LABS: Basophils Percent Auto 0.3 % (0-2); Eosinophils Absolute Auto 0.4 X10*3/uL (0.0-0.4); Eosinophils Percent Auto 5.6 % (0-4); Hematocrit 35.4 % (42.0-52.0); Hemoglobin 11.3 g/dl (14.0-18.0); Imm Gran Abs Auto 0.03 X10*3/uL (0.00-0.03); Imm Gran Pct Auto 0.5 % (0.0-0.4); Lymphocytes Absolute Auto 1.2 X10*3/uL (1.2-4.9); Lymphocytes Percent Auto 18.7 % (20-40); Mean Corpuscular HGB Conc 31.9 g/dl (31.0-36.0); Mean Corpuscular Hemoglobin 31.3 pg (27.0-33.0); Mean Corpuscular Volume 98.1 fL (80.0-98.0); Monocytes Absolute Auto 0.6 X10*3/uL (0.1-1.2); Monocytes Percent Auto 9.3 % (2-11); Neutrophils Absolute Auto 4.3 x10*3/uL (2.0-8.3); Neutrophils Percent Auto 65.6 % (45-73); Platelet Count 320 X10*3/uL (160-400); Red Blood Count 3.61 X10*6/uL (4.60-5.80); Red Cell Distribution Width 12.7 % (11.0-16.0); White Blood Count 6.6 X10*3/uL (4.8-10.8)
[2022-09-12 07:19] LABS: Anion Gap 13 (12-20); Blood Urea Nitrogen 20 mg/dL (9-16); Calcium 8.7 mg/dL (8.4-10.2); Carbon Dioxide 26 mmol/L (22-29); Chloride 107 mmol/L (96-108); Estimated Glomerular Filt Rate 49; Glucose Random 92 mg/dL (60-115); Potassium 4.4 mmol/L (3.3-5.1); Sodium 142 mmol/L (135-145)
[2022-09-12 07:37] LABS: Prostate Specific Antigen 8.98 ng/mL (<0.05-4.0)
== END 2022-09-12 05:35 | disposition home or self-care (01) ==
LOC: HO.HSH3W 05:34
PROVIDERS: Visit Provider Internal Medicine Endocrinology, Diabetes & Metabolism
DX: Z12.5 Encounter for screening for malignant neoplasm of prostate (principal); D64.9 Anemia, unspecified; N18.30 Chronic kidney disease, stage 3 unspecified; N40.0 Benign prostatic hyperplasia without lower urinary tract symptoms
CPT/HCPCS: 36415; 80048; 84153; 85025

== ENCOUNTER 2022-09-23 05:43 | Outpatient (REF) | payer MEDICARE, SELFPAY ==
[2022-09-23 07:43] LABS: PSA,Total (Free>4and<10) 8.25 ng/mL (0.00-4.00)
[2022-09-26 10:44] LABS: Free Prostate Spec Ag 0.4 ng/mL; Percent Free Prostate Spec Ag 6 % (calc) (>25); Prostate Specific Ag Total 6.9 ng/mL (< OR = 4.0)
== END 2022-09-23 05:44 | disposition home or self-care (01) ==
LOC: HO.HSH3W 05:43
PROVIDERS: Visit Provider Nurse Practitioner Acute Care
DX: Z12.5 Encounter for screening for malignant neoplasm of prostate (principal); N40.0 Benign prostatic hyperplasia without lower urinary tract symptoms
CPT/HCPCS: 36415; 84153; 84154

== ENCOUNTER 2022-10-26 05:34 | Outpatient (REF) | payer MEDICARE, SELFPAY ==
[2022-10-26 08:44] LABS: MANUAL DIFF FLAG NO
[2022-10-26 09:05] LABS: Anion Gap 14 (12-20); Blood Urea Nitrogen 19 mg/dL (9-16); Calcium 8.5 mg/dL (8.4-10.2); Carbon Dioxide 24 mmol/L (22-29); Chloride 107 mmol/L (96-108); Estimated Glomerular Filt Rate 53; Glucose Random 83 mg/dL (60-115); Potassium 4.4 mmol/L (3.3-5.1); Sodium 141 mmol/L (135-145)
[2022-10-26 09:06] LABS: Basophils Percent Auto 0.3 % (0-2); Eosinophils Absolute Auto 0.4 X10*3/uL (0.0-0.4); Eosinophils Percent Auto 5.8 % (0-4); Hematocrit 33.9 % (42.0-52.0); Imm Gran Abs Auto 0.02 X10*3/uL (0.00-0.03); Imm Gran Pct Auto 0.3 % (0.0-0.4); Lymphocytes Percent Auto 16.2 % (20-40); Mean Corpuscular HGB Conc 32.4 g/dl (31.0-36.0); Mean Corpuscular Hemoglobin 31.6 pg (27.0-33.0); Mean Corpuscular Volume 97.4 fL (80.0-98.0); Mean Platelet Volume 11.1 fL (9.4-12.4); Monocytes Absolute Auto 0.6 X10*3/uL (0.1-1.2); Monocytes Percent Auto 9.6 % (2-11); Neutrophils Absolute Auto 4.2 x10*3/uL (2.0-8.3); Neutrophils Percent Auto 67.8 % (45-73); Platelet Count 337 X10*3/uL (160-400); Red Blood Count 3.48 X10*6/uL (4.60-5.80); Red Cell Distribution Width 13.1 % (11.0-16.0); White Blood Count 6.3 X10*3/uL (4.8-10.8)
== END 2022-10-26 05:35 | disposition home or self-care (01) ==
LOC: HO.HSH3W 05:34
PROVIDERS: Visit Provider Nurse Practitioner
DX: R60.9 Edema, unspecified (principal); D64.9 Anemia, unspecified
CPT/HCPCS: 36415; 80048; 85025

== ENCOUNTER 2022-12-12 06:24 | Outpatient (REF) | payer MEDICARE, SELFPAY ==
[2022-12-12 07:09] LABS: Immature Retic Fraction 11.5 % (2.3-13.4); Retic HGB Equivalent 35.6 pg (30.0-35.0); Reticulocyte Percent 1.5 % (0.5-1.8)
[2022-12-12 07:26] LABS: Anion Gap 11 (12-20); Carbon Dioxide 26 mmol/L (22-29); Chloride 103 mmol/L (96-108); Iron 54 mcg/dL (45-160); Percent Iron Saturation 26 % (15-50); Potassium 3.5 mmol/L (3.3-5.1); Sodium 136 mmol/L (135-145); Total Iron Binding Capacity 209 mcg/dL (228-428); Unsaturated Iron Binding 155 ug/dL
[2022-12-12 07:40] LABS: Ferritin 198 ng/mL (20-250)
== END 2022-12-12 06:25 | disposition home or self-care (01) ==
LOC: HO.HSH 06:24
PROVIDERS: Visit Provider Nurse Practitioner
DX: R60.0 Localized edema (principal); D64.9 Anemia, unspecified
CPT/HCPCS: 36415; 80051; 82728; 83540; 85045

== ENCOUNTER 2022-12-24 14:00 | Emergency (ER) | payer OTHER, SELFPAY ==
--- NOTE | ~2022-12-24 | XR_ITS ---
EXAMINATION: XR CHEST CLINICAL INFORMATION: Fall. COMPARISON: None available. TECHNIQUE: Frontal view of the chest was obtained. FINDINGS: The lungs are hypoexpanded with mild haziness in the right lung base effusion versus atelectasis. Rest lungs are clear. The heart size enlarged. Vascularity slightly prominent but no congestion. No gross bony abnormality. XR/XR chest 1V IMPRESSION: 1. Hypoexpanded lungs with mild haziness right lung base question effusion versus atelectasis. 2. Mild cardiomegaly.
--- NOTE | ~2022-12-24 | CT_ITS ---
EXAMINATION: CT HEAD WITHOUT CONTRAST CLINICAL INFORMATION: Fall. Head strike. COMPARISON: None. TECHNIQUE: Contiguous axial imaging was performed from the skull base to vertex without intravenous administration of contrast. Coronal and sagittal reformatted images are performed at the CT scanner. [This CT examination was performed using dose optimization techniques as appropriate, variously including the following: *Automated exposure control *Adjustment of mA and/or kV according to patient size (this includes techniques or standardized protocols for targeted exams where dose is matched to indication/reason for exam; i.e. extremities or head) *Use of iterative reconstruction technique] DLP: 1014 mGy-cm. FINDINGS: There is no evidence of acute intracranial hemorrhage or territorial infarction. No abnormal mass-effect or midline shift is seen. Brian to white matter differentiation is well preserved. No extra-axial fluid collections are identified. There is generalized global volume loss. There is moderate prominence of the ventricles and the sulci . There is moderate hypodensity of the periventricular white matter due to chronic small vessel ischemic disease. There are vascular calcifications of the internal carotid arteries bilaterally. There is no osseous abnormality. The mastoid air cells and visualized portions of the paranasal sinuses are well-aerated. CT/CT cervical spine wo IV con IMPRESSION: No acute intracranial pathology.
--- NOTE | ~2022-12-24 | CT_ITS ---
EXAMINATION: CT HEAD WITHOUT CONTRAST CLINICAL INFORMATION: Fall. Head strike. COMPARISON: None. TECHNIQUE: Contiguous axial imaging was performed from the skull base to vertex without intravenous administration of contrast. Coronal and sagittal reformatted images are performed at the CT scanner. [This CT examination was performed using dose optimization techniques as appropriate, variously including the following: *Automated exposure control *Adjustment of mA and/or kV according to patient size (this includes techniques or standardized protocols for targeted exams where dose is matched to indication/reason for exam; i.e. extremities or head) *Use of iterative reconstruction technique] DLP: 1014 mGy-cm. FINDINGS: There is no evidence of acute intracranial hemorrhage or territorial infarction. No abnormal mass-effect or midline shift is seen. Brian to white matter differentiation is well preserved. No extra-axial fluid collections are identified. There is generalized global volume loss. There is moderate prominence of the ventricles and the sulci . There is moderate hypodensity of the periventricular white matter due to chronic small vessel ischemic disease. There are vascular calcifications of the internal carotid arteries bilaterally. There is no osseous abnormality. The mastoid air cells and visualized portions of the paranasal sinuses are well-aerated. CT/CT head/brain wo IV con IMPRESSION: No acute intracranial pathology.
[2022-12-24 14:08] VITALS: BP 147/68; PULSE 80; RESP 18; TEMP 36.6; O2SAT 95; BMI 28.4
--- NOTE | 2022-12-24 14:16 | ECG_ITS ---
Test Reason : FALL Blood Pressure : / mmHG Vent. Rate : 083 BPM Atrial Rate : 000 BPM P-R Int : 000 ms QRS Dur : 080 ms QT Int : 390 ms P-R-T Axes : 000 040 071 degrees QTc Int : 458 ms Poor data quality, interpretation may be adversely affected Normal sinus rhythm Normal ECG When compared with ECG of 02-MAR-2022 00:41, No significant change was found Referred By: Generic ED Physician Electronically Signed By:JONEL MAY
[2022-12-24 14:48] LABS: MANUAL DIFF FLAG NO
[2022-12-24 14:53] LABS: Basophils Percent Auto 0.2 % (0-2); Eosinophils Absolute Auto 0.1 X10*3/uL (0.0-0.4); Eosinophils Percent Auto 0.9 % (0-4); Hematocrit 37.4 % (42.0-52.0); Hemoglobin 12.3 g/dl (14.0-18.0); Imm Gran Abs Auto 0.07 X10*3/uL (0.00-0.03); Imm Gran Pct Auto 0.7 % (0.0-0.4); Lymphocytes Absolute Auto 0.7 X10*3/uL (1.2-4.9); Lymphocytes Percent Auto 6.5 % (20-40); Mean Corpuscular HGB Conc 32.9 g/dl (31.0-36.0); Mean Corpuscular Hemoglobin 31.7 pg (27.0-33.0); Mean Corpuscular Volume 96.4 fL (80.0-98.0); Monocytes Absolute Auto 0.6 X10*3/uL (0.1-1.2); Monocytes Percent Auto 5.4 % (2-11); Neutrophils Absolute Auto 9.2 x10*3/uL (2.0-8.3); Neutrophils Percent Auto 86.3 % (45-73); Platelet Count 366 X10*3/uL (160-400); Red Blood Count 3.88 X10*6/uL (4.60-5.80); Red Cell Distribution Width 12.8 % (11.0-16.0); White Blood Count 10.6 X10*3/uL (4.8-10.8)
--- NOTE | 2022-12-24 15:53 | ED_ITS ---
HPI - Fall General Chief Complaint: Fall Stated Complaint: UNWITNESSED FALL + HEAD STRIKE Time Seen by Provider: 12/24/22 15:53 Source: patient Mode of arrival: EMS Limitations: other (cognitive impairment) History of Present Illness HPI Narrative: 87 yo male [facility] PMH of dementia, Crohns, depression, HLD, UC, HTN, CKD, CAD, BPH, anemia here with no complaints but reportedly threw up earlier today. He then was sitting in his chair and when checked on he had fallen. He denies anything to me and makes jokes about I was drinking, nah just kidding I wasn't He denies CP/SOB, abdominal pain nausea dizziness, headaches. SNF notes today mention loose watery non bloody stools earlier I see nothing about vomiting prior to the fall. I see no blood thinner use on his chart. He is DNR/DNI. MD complaint: fall Onset (ago): hour(s) (couple) Fall from: chair Fall witnessed: no Place fall occurred: residential/SNF Loss of consciousness: unsure Prolonged down time: no Symptoms prior to fall: none Location of injury: head Severity: mild Associated symptoms (after fall): denies Related Data Allergies Allergy/AdvReac Type Severity Reaction Status Date / Time No Known Allergies Allergy Verified 03/02/22 00:18 Review of Systems 2 Review of Systems: ROS unable to be obtained due to cognitive impairment [facility] Past Medical History Attestation statement: The following information was validated with the patient. Source: old records reviewed Medical History Dementia Social History Social History (Updated 12/24/22 @ 16:32 by Yaima Landaverde DO) Patient Tobacco Use Status: Tobacco use Unknown Advance Directives: Yes Advance Directives on File: Yes Advance Directives Date on File: 03/03/22 Physical Exam 2 Vital Signs: Vital Signs: Last Vital Signs Temp 98.5 F 12/24/22 17:29 Pulse 79 12/24/22 17:29 Resp 16 12/24/22 17:29 BP 129/74 12/24/22 17:29 Pulse Ox 98 12/24/22 17:29 O2 Del Method Room Air 12/24/22 17:29 BMI result Body Mass Index 28.4 Appearance: Alert. Oriented X2 to self and place. No acute distress. Eyes: Pupils equal, round and reactive to light. ENT: Pharynx normal. atraumatic Neck: Normal inspection. Neck supple. CVS: Normal heart rate and rhythm. Pulses normal. Respiratory: No respiratory distress. Breath sounds normal. Abdomen: Soft and nontender. denies pain Skin: Skin warm and dry. Normal skin color. Normal skin turgor. Extremities: No lower extremity edema. No calf ttp Neuro: Oriented X 2. No motor deficit. No sensory deficit. Medical Decision Making Medical Decision Making MDM Narrative: 87 yo male from [facility] PMH of dementia, Crohns, depression, HLD, UC, HTN, CKD, CAD, BPH, anemia here after unwitnessed fall and loose stools earlier he has no complaints no headaches no n/v or abdominal pain. He has no complaints and is laughing that he is here. At this time given fall will need labs, EKG, CT head/cspine and CXR/UA. He does not have CP/SOB or abnormal VS to suggest VTE. He is at his baseline. Could be dehydrated if he had loose stools. He denies abdominal pain Differential Diagnosis Differential Diagnoses: The differential diagnosis associated with the presentation includes dehydration, fall, anemia Admission/Observation Consideration of admission/observation: Escalation of care including admission/observation considered work up negative at baseline can be monitored at [facility] Data [facility] Lab Attestation statement: I reviewed the patient's lab results. 12/24/22 14:38 12/24/22 16:13 Labs: Lab Results 12/24/22 12/24/22 12/24/22 Range/Units 14:38 16:13 17:31 WBC 10.6 (4.8-10.8) X10*3/uL RBC 3.88 L (4.60-5.80) X10*6/uL Hgb 12.3 L (14.0-18.0) g/dl Hct 37.4 L (42.0-52.0) % MCV 96.4 (80.0-98.0) fL MCH 31.7 (27.0-33.0) pg MCHC 32.9 (31.0-36.0) g/dl RDW 12.8 (11.0-16.0) % Plt Count 366 (160-400) X10*3/uL MPV 11.0 (9.4-12.4) fL Immature Gran % (Auto) 0.7 H (0.0-0.4) % Neut % (Auto) 86.3 H (45-73) % Lymph % (Auto) 6.5 L (20-40) % [place] % (Auto) 5.4 (2-11) % Eos % (Auto) 0.9 (0-4) % Baso % (Auto) 0.2 (0-2) % Lymph # (Auto) 0.7 L (1.2-4.9) X10*3/uL [place] # (Auto) 0.6 (0.1-1.2) X10*3/uL Eos # (Auto) 0.1 (0.0-0.4) X10*3/uL Baso # (Auto) 0.0 (0.0-0.2) X10*3/uL Abs Immat Gran (auto) 0.07 H (0.00-0.03) X10*3/uL Absolute Neuts (auto) 9.2 H (2.0-8.3) x10*3/uL Absolute Nucleated RBC 0.000 (0.0-0.012) X10*3/uL Nucleated RBC % (auto) 0.0 (0.0-0.2) /100WBC Sodium 138 (135-145) mmol/L Potassium 4.3 D (3.3-5.1) mmol/L Chloride 105 (96-108) mmol/L Carbon Dioxide 24 (22-29) mmol/L Anion Gap 13 (12-20) BUN 28 H (9-16) mg/dL Creatinine 1.31 (0.5-1.4) mg/dL Estim Creat Clear Calc 42.0 Estimated GFR 52 Random Glucose 118 H (60-115) mg/dL Calcium 9.0 (8.4-10.2) mg/dL Total Bilirubin 0.4 (0.0-1.0) mg/dL AST 13 (5-37) U/L ALT 9 (0-40) U/L Alkaline Phosphatase 72 (39-117) U/L Total Creatine Kinase 48 (38-174) U/L Troponin I High Sens 6.1 (<3.5-35.0) ng/L Total Protein 7.2 (6.5-8.0) g/dL Albumin 3.6 (3.5-5.0) g/dL Urine Color Yellow Urine Appearance Clear Urine pH 5.5 (5.0-9.0) Ur Specific [place] 1.025 (1.005-1.025) Urine Protein Trace (Neg-Trace) mg/dL Urine Glucose (UA) Negative (Negative) mg/dL Urine Ketones Negative (Negative) mg/dL Urine Blood Trace H (Negative) Urine Nitrite Negative (Negative) Ur Leukocyte Esterase Trace H (Negative) Urine RBC 3-5 H (0-2) /HPF Urine WBC 0-5 (0-5) /HPF Ur Squamous Epith Cells 0-2 (0-2) /HPF Urine Bacteria None Seen (None Seen) Hyaline Casts 0-2 (0-2) /LPF Influenza Type A (PCR) NEGATIVE (Negative) Influenza Type B (PCR) NEGATIVE (Negative) RSV RNA Qual (PCR) NEGATIVE (Negative) SARS-CoV-2 RNA (RT-PCR) NEGATIVE (Negative) Independent Interpretation I performed an independent interpretation of an: EKG, Plain X-Ray (no pneumonia) and CT Scan (no trauma noted) Interpretation: Rate: 83 Rhythm: NSR [place]: normal Normal P waves. Normal KAREN. Normal QRS complex. ST T wave : artifact no BACILIO, nonspecific ST T wave changes qTC: normal prior studies: no acute ischemia The study has been interpreted contemporaneously by me. . External Record Review External record reviewed: Outpatient record Discharge Plan Discharge Clinical Impression: Fall Patient Disposition: Xfer SNF Instructions: Fall Prevention for Older Adults (ED) Additional Instructions: chest xray no pneumonia, CT head and cspine no trauma no UTI labs normal, EKG and troponin negative no flu or covid return for worsening symptoms - chest pain trouble breathing fevers confusion vomiting/diarrhea or any other concerns. no diarrhea while in ED Interventions: ED Discharge Assessment Last Done: 12/24/22 20:47 Discharge Date/Time: 12/24/22 20:47
[2022-12-24 16:43] LABS: Alanine Aminotransferase 9 U/L (0-40); Albumin Level 3.6 g/dL (3.5-5.0); Alkaline Phosphatase 72 U/L (39-117); Anion Gap 13 (12-20); Aspartate Amino Transferase 13 U/L (5-37); Bilirubin Total 0.4 mg/dL (0.0-1.0); Blood Urea Nitrogen 28 mg/dL (9-16); Carbon Dioxide 24 mmol/L (22-29); Chloride 105 mmol/L (96-108); Estimated Glomerular Filt Rate 52; Glucose Random 118 mg/dL (60-115); Potassium 4.3 mmol/L (3.3-5.1); Sodium 138 mmol/L (135-145); Total Protein 7.2 g/dL (6.5-8.0)
[2022-12-24 17:04] LABS: Influenza A PCR NEGATIVE (Negative); Influenza B PCR NEGATIVE (Negative); Resp Syncy Virus RNA Qual PCR NEGATIVE (Negative); SARS COV2 PCR INHOUSE NEGATIVE (Negative)
[2022-12-24 17:16] LABS: Troponin-I High Sensitivity 6.1 ng/L (<3.5-35.0)
[2022-12-24 17:29] VITALS: BP 129/74; PULSE 79; RESP 16; TEMP 36.9; O2SAT 98
[2022-12-24 17:38] LABS: Appearance Urine Clear; Color Urine Yellow; Glucose Urine UA Negative (Negative); Leukocyte Esterase Urine Trace (Negative); Nitrite Urine Negative (Negative); PH 5.5 (5.0-9.0); Specific Gravity - Urine 1.025 (1.005-1.025); UMIC TRIGGER UACC YES; Urine Blood Trace (Negative); Urine Ketones Negative (Negative); Urine Protein Trace mg/dL (Neg-Trace)
[2022-12-24 17:43] LABS: Bacteria Urine None Seen (None Seen); Hyaline Casts Urine 0-2 /LPF (0-2); Squamous Epithelial Cell Urine 0-2 /HPF (0-2); WBC Urine 0-5 /HPF (0-5)
--- NOTE | 2022-12-24 20:26 | PC.NURSE ---
Report given to Abbi GONZALES at [facility]. Pt is being picked up by ambulance at this time.
== END 2022-12-24 20:47 | disposition skilled nursing facility (03) ==
PROVIDERS: Physician Assistant Medical; Emergency Provider Emergency Medicine
DX: R19.7 Diarrhea, unspecified (principal); Z91.81 History of falling; Z20.822 Contact with and (suspected) exposure to COVID-19; Z20.828 Contact with and (suspected) exposure to other viral communicable diseases; I12.9 Hypertensive chronic kidney disease with stage 1 through stage 4 chronic kidney disease, or unspecified chronic kidney disease; N18.9 Chronic kidney disease, unspecified; E78.5 Hyperlipidemia, unspecified
CPT/HCPCS: 0241U; 36415; 70450; 71045; 72125; 80053; 81001; 82550; 84484; 85025; 93005; 99284

== ENCOUNTER 2022-12-28 08:58 | Inpatient (IN) | payer OTHER, MEDICARE, SELFPAY ==
[2022-12-28] VITALS (9 sets, daily range): BP systolic 127–162; BP diastolic 62–86; PULSE 79–100; RESP 16–20; TEMP 36.6–37.2; O2SAT 94–98; BMI 26.5
--- NOTE | 2022-12-28 | ECG_ITS ---
Test Reason : AMS Blood Pressure : / mmHG Vent. Rate : 088 BPM Atrial Rate : 088 BPM P-R Int : 184 ms QRS Dur : 084 ms QT Int : 366 ms P-R-T Axes : 086 041 066 degrees QTc Int : 442 ms Normal sinus rhythm Normal ECG When compared with ECG of 24-DEC-2022 14:40, No significant change was found Referred By: Alejandro Arredondo Electronically Signed By:JONEL MAY
--- NOTE | ~2022-12-28 | CT_ITS ---
EXAMINATION: CT HEAD WITHOUT CONTRAST CLINICAL INFORMATION: Trauma. COMPARISON: 03/02/2022 TECHNIQUE: Contiguous axial imaging was performed from the skull base to vertex without intravenous administration of contrast. This CT examination was performed using dose optimization techniques as appropriate, variously including the following: *Automated exposure control *Adjustment of mA and/or kV according to patient size (this includes techniques or standardized protocols for targeted exams where dose is matched to indication/reason for exam; i.e. extremities or head) *Use of iterative reconstruction technique DLP: 690 mGy-cm FINDINGS: There is prominence to the sulci and ventricles suggestive of extreme involutional change with moderate deep white matter gliosis. No significant change. There is no evidence though for intra or extra-axial fluid collection, hemorrhage, mass or mass effect. Atherosclerotic calcification, in the cavernous ICAs. No change. The calvarium is intact. Note is made of mucoperiosteal thickening within the ethmoid sinuses and maxillary sinuses. Postsurgical changes to the right and left maxilla are noted. CT/CT head/brain wo IV con IMPRESSION: Stable chronic change. There is no acute intracranial abnormalities.
--- NOTE | ~2022-12-28 | CT_ITS ---
EXAMINATION: CT ABDOMEN AND PELVIS WITHOUT CONTRAST CLINICAL INFORMATION: Small bowel obstruction COMPARISON: Previous CT of the abdomen and pelvis from earlier the same day TECHNIQUE: Multidetector volumetric imaging was performed from the superior aspect of the liver through the pubic symphysis following oral Gastrografin contrast. Sagittal and coronal reformatted images were obtained on the technologist's workstation. This CT examination was performed using dose optimization techniques as appropriate, variously including the following: *Automated exposure control *Adjustment of mA and/or kV according to patient size (this includes techniques or standardized protocols for targeted exams where dose is matched to indication/reason for exam; i.e. extremities or head) *Use of iterative reconstruction technique DLP: 777 mGy-cm FINDINGS: LUNG BASES: The visualized lung bases are unremarkable. LIVER, GALLBLADDER, AND BILIARY TREE: The liver is normal in size, shape, and attenuation. No focal hepatic lesion or biliary ductal dilatation is present. Small gallstones in the gallbladder. The gallbladder is otherwise unremarkable. PANCREAS: Unremarkable. SPLEEN: Unremarkable. ADRENAL GLANDS: Unremarkable. KIDNEYS AND URETERS: The kidneys are normal in size, shape, and attenuation. No hydronephrosis, hydroureter, or calculi seen. No perinephric stranding. 2 x 2.8 cm left renal cyst. No imaging follow-up recommended. BLADDER: Unremarkable. GASTROINTESTINAL TRACT: There are dilated contrast and fluid-filled loops of small bowel. There is distal small bowel obstruction from right inguinal hernia. There is a postsurgical change to the distal small bowel with surgical staple line. There is a increased fat seen in the wall of the terminal ileum and proximal right colon. This is a nonspecific finding. This can be seen with old inflammatory enteritis and colitis. The appendix is not seen. There may be a small hiatal hernia. ABDOMINAL WALL: Right inguinal hernia containing small bowel. There is a secondary small bowel obstruction. LYMPH NODES: Normal. VASCULAR: Atherosclerotic disease. No aneurysm. PELVIC VISCERA: Unremarkable. OSSEOUS STRUCTURES: Slight loss of height of the superior endplate of the L3 vertebral body questionable for mild old compression fracture. CT/CT abdomen pelvis wo IV con IMPRESSION: Small bowel obstruction secondary to obstructing right inguinal hernia. This is similar to exam from earlier the same day. Small gallstones. Fleischner guidelines were followed.
--- NOTE | ~2022-12-28 | CT_ITS ---
EXAMINATION: CT ABDOMEN AND PELVIS WITHOUT CONTRAST CLINICAL INFORMATION: Abdominal distention with question of free air COMPARISON: CT abdomen pelvis 05/13/2022 TECHNIQUE: Multidetector volumetric imaging was performed from the superior aspect of the liver through the pubic symphysis. Sagittal and coronal reformatted images were obtained on the technologist's workstation. This CT examination was performed using dose optimization techniques as appropriate, variously including the following: *Automated exposure control *Adjustment of mA and/or kV according to patient size (this includes techniques or standardized protocols for targeted exams where dose is matched to indication/reason for exam; i.e. extremities or head) *Use of iterative reconstruction technique DLP: 2000 mGy-cm FINDINGS: LUNG BASES: Scarring and traction bronchiectasis are present at the lung bases, right greater than left. Extensive coronary calcification is present. LIVER, GALLBLADDER, AND BILIARY TREE: The liver is normal in size, shape, and attenuation. No focal hepatic lesion or biliary ductal dilatation is present. The gallbladder contains some small layering calcified gallstones but is otherwise unremarkable with no evidence of pericholecystic inflammatory changes. PANCREAS: Unremarkable. SPLEEN: Unremarkable. ADRENAL GLANDS: Unremarkable. KIDNEYS AND URETERS: The kidneys are normal in size, shape, and attenuation. No hydronephrosis, hydroureter, or calculi seen. No perinephric stranding. Left-sided Bosniak class I renal cyst is noted which requires no additional imaging or follow up. No solid renal masses are seen. BLADDER: Unremarkable. GASTROINTESTINAL TRACT: A small hiatal hernia is present. There is small bowel obstruction secondary to an obstructing right inguinal hernia. This hernia was present in the past but is nonobstructing The large bowel is unremarkable. The appendix is not seen. No free intraperitoneal air is seen. No portal venous gas. ABDOMINAL WALL: No significant hernia is appreciated. LYMPH NODES: No retroperitoneal lymphadenopathy. VASCULAR: Calcific aorta iliofemoral plaque without aneurysm. PELVIC VISCERA: The prostate and seminal vesicles are unremarkable. OSSEOUS STRUCTURES: Unremarkable. CT/CT abdomen pelvis wo IV con IMPRESSION: 1. Small bowel obstruction secondary to an obstructing right inguinal hernia. 2. Cholelithiasis without cholecystitis. 3. Other incidental findings as described above. Fleischner guidelines were followed.
--- NOTE | ~2022-12-28 | CT_ITS ---
EXAMINATION: CT CERVICAL SPINE WITHOUT CONTRAST CLINICAL INFORMATION: Trauma. COMPARISON: 12/24/2022 TECHNIQUE: Thin section axial images with sagittal coronal reformats are obtained. This CT examination was performed using dose optimization techniques as appropriate, variously including the following: *Automated exposure control *Adjustment of mA and/or kV according to patient size (this includes techniques or standardized protocols for targeted exams where dose is matched to indication/reason for exam; i.e. extremities or head) *Use of iterative reconstruction technique DLP: 355 mGy-cm FINDINGS: There is loss of the normal cervical lordosis with advanced multilevel degenerative change noted. There appears to be an element of fusion in the mid C-spine. No evidence though for an acute fracture or destructive process or encroachment on the spinal canal. Prevertebral soft tissues are normal. Note is made of extensive atherosclerotic calcification in the carotids. CT/CT cervical spine wo IV con IMPRESSION: Advanced degenerative changes but no fracture. Fleischner guidelines were followed.
--- NOTE | 2022-12-28 09:38 | ED_ITS ---
HPI - General Adult General Chief complaint: Nausea/Vomiting/Diarrhea Stated complaint: WEAK,UNSTEADY,S/P 2 FALLS,VOMITING COFFEE GROUNDS Time Seen by Provider: 12/28/22 09:31 Source: EMS and other ([facility] record) Mode of arrival: EMS Limitations: other (dementia) History of Present Illness HPI narrative: This is 87 years old patient with history of TBI, history of dementia, sent to the emergency department because of vomiting and recent fall question head injury. Patient denies any chest pain abdominal pain. No reported fever no reported diarrhea Onset (ago): day(s) (1) Location: head Severity: moderate Relieving factors: none Exacerbating factors: none Associated symptoms: denies other symptoms Related Data Allergies Allergy/AdvReac Type Severity Reaction Status Date / Time No Known Allergies Allergy Verified 03/02/22 00:18 Review of Systems 2 Constitutional: Constitutional: Reports no additional constitutional complaints ENT: Reports system reviewed and no additional complaints, except as documented Cardiovascular: Cardiovascular: Reports no additional cardiovascular complaints PMFSH Past Medical History [facility] Narrative: History of dementia history of TBI, history of Crohn's disease history of iron deficiency anemia, hypertension chronic renal insufficiency Medical History Dementia Social History Social History Unable to assess alcohol history related to: Unable to respond Patient Tobacco Use Status: Tobacco use Unknown Smoked in Last 30 Days: No Use of substances other than those prescribed or required for medical reasons: Unable to respond Advance Directives: Yes Advance Directives on File: Yes Advance Directives Date on File: 03/03/22 Physical Exam ED Vital Signs: Vital Signs - 24 hr 12/28/22 09:14 12/28/22 10:51 12/28/22 12:33 Temperature 97.8 F 98.8 F Pulse Rate 97 94 90 Respiratory Rate 20 18 18 Blood Pressure 146/77 H 151/74 H 144/86 H Pulse Oximetry 94 95 95 Oxygen Delivery Method Room Air Room Air Room Air 12/28/22 14:22 Temperature 99 F Pulse Rate 82 Respiratory Rate 18 Blood Pressure 154/84 H Pulse Oximetry 96 Oxygen Delivery Method Room Air BMI result Body Mass Index 26.5 Vital signs are stable looks well is no toxic-appearing Const General: cooperative, comfortable, no acute distress and well developed Nutritional Appearance: well nourished Orientation/consciousness: Other orientation findings (He is oriented to planes able to tell me that he is in hospital, ) HENMT Head: Yes normal to inspection General nose exam: Normal external nose present Face and sinus: Yes normal facial exam Throat: Yes posterior oropharynx normal Neck Neck: Yes normal visual inspection Chest Chest palpation & inspection: normal inspection of the chest Resp Effort & Inspection: normal respiratory effort Auscultation: clear to auscultation bilaterally Cardio Jugular venous distension: no JVD Rate: regular rate Rhythm: regular rhythm GI Inspection: Yes normal to inspection Palpation (GI): Soft to palpation, not firm, nontender and no guarding Percussion: Yes normal to percussion Skin General skin exam: no rashes or lesions noted and elasticity normal Rashes: no rashes Course Reevaluation(s) Reevaluation #1: seen by Dr Briscoe in ED,he request to repeat ct with oral contrast Time: 11:39 Reevaluation #2: ]we are waiting for ct result signed out to Dr PEDRO Medications Administered Generic Name Dose Route Start Last Admin Trade Name Freq PRN Reason Stop Dose Admin Sodium Chloride 1,000 mls @ 150 mls/hr 12/28/22 11:30 12/28/22 11:34 Ns IVCONT 150 mls/hr .[id number] SRAVANTHI Administration Discontinued Medications Generic Name Dose Route Start Last Admin Trade Name Freq PRN Reason Stop Dose Admin Diatrizoate Meglum/Diatrizoate Sod 30 ml 12/28/22 14:27 12/28/22 14:28 Diatrizoate Meglumine, Sodium 30 Ml Solution PO 12/28/22 14:28 30 ml ONCE ONE Administration Ondansetron HCl 4 mg 12/28/22 09:43 12/28/22 10:25 Ondansetron Hcl 4 Mg/2 Ml Vial IVPUSH 12/28/22 09:44 4 mg ONCE ONE Administration Medical Decision Making Lab Data 12/28/22 09:42 12/28/22 09:42 Labs: Lab Results 12/28/22 Range/Units 09:42 WBC 10.7 (4.8-10.8) X10*3/uL RBC 3.72 L (4.60-5.80) X10*6/uL Hgb 11.7 L (14.0-18.0) g/dl Hct 35.6 L (42.0-52.0) % MCV 95.7 (80.0-98.0) fL MCH 31.5 (27.0-33.0) pg MCHC 32.9 (31.0-36.0) g/dl RDW 12.9 (11.0-16.0) % Plt Count 394 (160-400) X10*3/uL MPV 10.6 (9.4-12.4) fL Immature Gran % (Auto) 0.5 H (0.0-0.4) % Neut % (Auto) 85.9 H (45-73) % Lymph % (Auto) 5.9 L (20-40) % [place] % (Auto) 6.4 (2-11) % Eos % (Auto) 1.1 (0-4) % Baso % (Auto) 0.2 (0-2) % Lymph # (Auto) 0.6 L (1.2-4.9) X10*3/uL [place] # (Auto) 0.7 (0.1-1.2) X10*3/uL Eos # (Auto) 0.1 (0.0-0.4) X10*3/uL Baso # (Auto) 0.0 (0.0-0.2) X10*3/uL Abs Immat Gran (auto) 0.05 H (0.00-0.03) X10*3/uL Absolute Neuts (auto) 9.2 H (2.0-8.3) x10*3/uL Absolute Nucleated RBC 0.000 (0.0-0.012) X10*3/uL Nucleated RBC % (auto) 0.0 (0.0-0.2) /100WBC PT 14.1 H (11.1-13.3) SEC INR 1.2 H (0.9-1.1) APTT 32.9 (26.0-36.4) SEC Sodium 139 (135-145) mmol/L Potassium 4.2 (3.3-5.1) mmol/L Chloride 106 (96-108) mmol/L Carbon Dioxide 23 (22-29) mmol/L Anion Gap 14 (12-20) BUN 25 H (9-16) mg/dL Creatinine 1.39 (0.5-1.4) mg/dL Estim Creat Clear Calc 36.2 Estimated GFR 48 Random Glucose 133 H (60-115) mg/dL Calcium 8.9 (8.4-10.2) mg/dL Magnesium 2.1 (1.6-2.6) mg/dL Total Bilirubin 0.4 (0.0-1.0) mg/dL AST 13 (5-37) U/L ALT 9 (0-40) U/L Alkaline Phosphatase 71 (39-117) U/L Total Protein 7.3 (6.5-8.0) g/dL Albumin 3.6 (3.5-5.0) g/dL Discharge Plan Discharge Clinical Impression: Reducible right inguinal hernia Patient Disposition: Still a Patient
[2022-12-28 09:45] LABS: MANUAL DIFF FLAG NO
[2022-12-28 09:48] LABS: Basophils Percent Auto 0.2 % (0-2); Eosinophils Absolute Auto 0.1 X10*3/uL (0.0-0.4); Eosinophils Percent Auto 1.1 % (0-4); Hematocrit 35.6 % (42.0-52.0); Hemoglobin 11.7 g/dl (14.0-18.0); Imm Gran Abs Auto 0.05 X10*3/uL (0.00-0.03); Imm Gran Pct Auto 0.5 % (0.0-0.4); Lymphocytes Absolute Auto 0.6 X10*3/uL (1.2-4.9); Lymphocytes Percent Auto 5.9 % (20-40); Mean Corpuscular HGB Conc 32.9 g/dl (31.0-36.0); Mean Corpuscular Hemoglobin 31.5 pg (27.0-33.0); Mean Corpuscular Volume 95.7 fL (80.0-98.0); Mean Platelet Volume 10.6 fL (9.4-12.4); Monocytes Absolute Auto 0.7 X10*3/uL (0.1-1.2); Monocytes Percent Auto 6.4 % (2-11); Neutrophils Absolute Auto 9.2 x10*3/uL (2.0-8.3); Neutrophils Percent Auto 85.9 % (45-73); Platelet Count 394 X10*3/uL (160-400); Red Blood Count 3.72 X10*6/uL (4.60-5.80); Red Cell Distribution Width 12.9 % (11.0-16.0); White Blood Count 10.7 X10*3/uL (4.8-10.8)
[2022-12-28 10:03] LABS: Alanine Aminotransferase 9 U/L (0-40); Albumin Level 3.6 g/dL (3.5-5.0); Alkaline Phosphatase 71 U/L (39-117); Anion Gap 14 (12-20); Aspartate Amino Transferase 13 U/L (5-37); Bilirubin Total 0.4 mg/dL (0.0-1.0); Blood Urea Nitrogen 25 mg/dL (9-16); Calcium 8.9 mg/dL (8.4-10.2); Carbon Dioxide 23 mmol/L (22-29); Chloride 106 mmol/L (96-108); Creatinine Clr Calc Pharmacy 36.2; Estimated Glomerular Filt Rate 48; Glucose Random 133 mg/dL (60-115); Magnesium 2.1 mg/dL (1.6-2.6); Potassium 4.2 mmol/L (3.3-5.1); Sodium 139 mmol/L (135-145); Total Protein 7.3 g/dL (6.5-8.0)
[2022-12-28 10:10] LABS: INTERNATIONAL NORM RATIO 1.2 (0.9-1.1); Prothrombin Time 14.1 SEC (11.1-13.3)
[2022-12-28 10:13] LABS: Partial Thromboplastin Time 32.9 SEC (26.0-36.4)
[2022-12-28] MEDS: ondansetron HCL 4 MG/2 ML VIAL IVPUSH (10:25)
[2022-12-28] MEDS: 0.9 % Sodium Chloride 1,000 ML 150 ML IVCONT ×2 (11:34→17:57)
--- NOTE | 2022-12-28 12:29 | P.CONGS_ITS ---
History of Present Illness Consult details Consult date: 12/28/22 Requesting physician: Prakash Milner Narrative: 87-year-old male patient presenting to the emergency department with a history of nausea and vomiting abdominal distension. He has a known history of a right inguinal hernia and previous intestinal surgery. Patient has dementia and is unaware of any of his ongoing issues or past history. Patient underwent CT abdomen and pelvis without contrast this morning. This revealed dilated loops of small bowel with a right inguinal hernia with apparent obstruction due to the hernia. Surgical consultation was requested for further evaluation. No other history is available at the time of this dictation. Review of Systems 2 Review of Systems: Yes Unobtainable due to mental status PMFSH Past Medical History Medical History Dementia Social History Social History Unable to assess alcohol history related to: Unable to respond Patient Tobacco Use Status: Tobacco use Unknown Smoked in Last 30 Days: No Use of substances other than those prescribed or required for medical reasons: Unable to respond Advance Directives: Yes Advance Directives on File: Yes Advance Directives Date on File: 03/03/22 Meds Allergies Allergy/AdvReac Type Severity Reaction Status Date / Time No Known Allergies Allergy Verified 03/02/22 00:18 Active Medications: Current Medications Sodium Chloride (Ns) 1,000 mls @ 150 mls/hr IVCONT .Q6H40M [facility] Last Admin: 12/28/22 11:34 Dose: 150 mls/hr Physical Exam 2 Vital Signs: Vital Signs: Last Vital Signs Temp 97.8 F 12/28/22 09:14 Pulse 94 12/28/22 10:51 Resp 18 12/28/22 10:51 BP 151/74 H 12/28/22 10:51 Pulse Ox 95 12/28/22 10:51 O2 Del Method Room Air 12/28/22 10:51 BMI result Body Mass Index 26.5 Const: Other: Awake, alert, in no acute distress Resp: Other: Breathing comfortably on room air, no respiratory distress GI: Other: Distended abdomen, tympanic to percussion. No tenderness to palpation of the abdomen. Right inguinal hernia is identified but is easily reduced completely with light pressure. No tenderness elicited with reduction. Extrem: Other: No cyanosis, clubbing or edema. Results Labs 12/28/22 09:42 12/28/22 09:42 Labs: Abnormal lab results 12/28/22 Range/Units 09:42 RBC 3.72 L (4.60-5.80) X10*6/uL Hgb 11.7 L (14.0-18.0) g/dl Hct 35.6 L (42.0-52.0) % Immature Gran % (Auto) 0.5 H (0.0-0.4) % Neut % (Auto) 85.9 H (45-73) % Lymph % (Auto) 5.9 L (20-40) % Lymph # (Auto) 0.6 L (1.2-4.9) X10*3/uL Abs Immat Gran (auto) 0.05 H (0.00-0.03) X10*3/uL Absolute Neuts (auto) 9.2 H (2.0-8.3) x10*3/uL PT 14.1 H (11.1-13.3) SEC INR 1.2 H (0.9-1.1) BUN 25 H (9-16) mg/dL Random Glucose 133 H (60-115) mg/dL Short CBC 12/28/22 Range/Units 09:42 WBC 10.7 (4.8-10.8) X10*3/uL Hgb 11.7 L (14.0-18.0) g/dl Hct 35.6 L (42.0-52.0) % Plt Count 394 (160-400) X10*3/uL BMP 12/28/22 09:42 Sodium 139 Potassium 4.2 Chloride 106 Carbon Dioxide 23 BUN 25 H Creatinine 1.39 Calcium 8.9 Liver Function 12/28/22 Range/Units 09:42 Total Bilirubin 0.4 (0.0-1.0) mg/dL AST 13 (5-37) U/L ALT 9 (0-40) U/L Alkaline Phosphatase 71 (39-117) U/L Albumin 3.6 (3.5-5.0) g/dL All other labs normal. Assessment and Plan (1) Small bowel obstruction: Status: Acute (2) Reducible right inguinal hernia: Status: Acute Plan 87-year-old male patient presenting with a recent history of nausea and vomiting. Per radiology reading of CT there appears to be obstruction due to the right inguinal hernia. On examination the patient does have a distended abdomen, tympanic to percussion. There is no tenderness to palpation. The right inguinal hernia is easily completely reduced with no apparent tenderness. Review of the CT abdomen and pelvis does show the large right inguinal hernia which was noted on previous scans. Although the bowel does appear narrowed there is evidence of dilated loops distal to the hernia with possible narrowing distal to the surgical anastomosis in the distal ileum. Suggest repeating CT with oral contrast to identify the site of obstruction. Time Spent With Patient Time: Total time managing care of this patient today ____ minutes. Procedures Date of Service Date of Service: 12/28/22
[2022-12-28] MEDS: Diatrizoate Meglumine, Sodium 30 ML SOLUTION PO (14:28)
--- NOTE | 2022-12-28 19:51 | PHA.MEDREC ---
Pharmacy Consult ? Medication Reconciliation Pharmacy has completed the medication reconciliation. Patient came from [facility] home with med list.
[2022-12-28] MEDS: Dextrose 5 % and Lactated Ring 1,000 ML 125 ML IVCONT (20:04)
--- NOTE | 2022-12-28 20:15 | MHC.EDTECH ---
THIS PCT ASSUMED CARE OF PATIENT AT 1930 ,VITALS SIGN TAKEN ,PATIENT WAS INCONIENT OF BOTH URINE AND SMALL AMOUNT OF STOOL ,CARE GIVEN ,BEDDING CHANGE ,PT HAS NO APARENT DISTRESS AT THIS TIME ,PT BELONINGS LIST DONE ,WILL CONTINUE TO MONITOR .
[2022-12-28 20:49] LABS: VBG Base Excess 1.1 mmol/L; VBG HCO3 22 mmol/L (22-26); VBG pCO2 25 mmHg; VBG pH 7.54 (7.32-7.43); VBG pO2 232 mmHg
[2022-12-28 20:51] LABS: Venous Blood Gas Refer to POC result
--- NOTE | 2022-12-28 20:55 | HO.PM.IMCN ---
History of Present Illness Data of Consult Service Date: 12/28/22 Primary Care Provider: Unknown Physician HPI Reason for consult: Pre-op clearance Patient is an 87-year-old male with PMH significant for TBI, dementia unspecified, CAD, aortic stenosis, CKD 3, Crohn's disease, allergic rhinitis, and iron deficiency anemia who presents from the [facility] for evaluation of vomiting and recent fall with question of head injury. Medical consult for preop clearance. During workup in the ED patient was found to have a small-bowel obstruction secondary to an obstructing right inguinal hernia. CT of head was negative for acute intracranial abnormalities, but did show stable chronic change. CT of cervical spine showed no fractures but advanced degenerative changes. Patient himself is alert and oriented to self only and incapable of providing accurate HPI, the patient denies any current pain. Labs reviewed, showing stable H&H of 11.7/35.6, VBG H showed a metabolic alkalosis of pH 7.54. EKG pending. Review of Systems Review of Systems: Unable to obtain due to patient's mentation [facility] Medical History Dementia Social History Unable to assess alcohol history related to: Unable to respond Patient Tobacco Use Status: Tobacco use Unknown Smoked in Last 30 Days: No Use of substances other than those prescribed or required for medical reasons: Unable to respond Advance Directives: Yes Advance Directives on File: Yes Advance Directives Date on File: 03/03/22 Meds Allergies Allergy/AdvReac Type Severity Reaction Status Date / Time No Known Allergies Allergy Verified 03/02/22 00:18 Active Medications: Current Medications Hydromorphone HCl (Hydromorphone Hcl 0.5 Mg/0.5 Ml Syringe) 0.5 mg IVPUSH Q3H PRN; Protocol PRN Reason: Pain, Severe (Pain Scale 7-10) Sodium Chloride (Ns) 1,000 mls @ 150 mls/hr IVCONT .Q6H40M [facility] Last Infusion: 12/28/22 19:58 Dose: 0 mls/hr Dextrose/Lactated Ringer's (D5lr) 1,000 mls @ 125 mls/hr IVCONT .Q8H [facility] Last Admin: 12/28/22 20:04 Dose: 125 mls/hr Ondansetron HCl (Ondansetron Hcl 4 Mg/2 Ml Vial) 4 mg IVPUSH QID PRN PRN Reason: Nausea Sodium Chloride (0.9 % Sodium Chloride Flush 3 Ml Syringe) 3 ml IVFLUSH QSHIFT [facility] Home Medications Medication Instructions Recorded Confirmed Last Taken Type albuterol sulfate 2.5 mg/3 mL 2.5 mg inhalation Q4H PRN SOB 12/28/22 12/28/22 12/27/22 History (0.083 %) solution for nebulization aluminum-mag hydroxide-simethicone 30 ml PO QID PRN GI UPSET/HEARTBURN 12/28/22 12/28/22 12/27/22 History 200 mg-200 mg-20 mg/5 mL oral susp carboxymethylcellulose sodium 1 % 1 drp ophthalmic (eye) TID 12/28/22 12/28/22 12/27/22 History eye drops cholecalciferol (vitamin D3) 25 25 mcg PO DAILY 12/28/22 12/28/22 12/27/22 History mcg (1,000 unit) tablet cyanocobalamin (vitamin B-12) 1,000 mcg PO DAILY 12/28/22 12/28/22 12/27/22 History 1,000 mcg tablet escitalopram oxalate 5 mg tablet 5 mg PO DAILY 12/28/22 12/28/22 12/27/22 History (Lexapro) ferrous sulfate 325 mg (65 mg 325 mg PO BID 12/28/22 12/28/22 12/27/22 History iron) tablet loratadine 10 mg capsule 10 mg PO DAILY 12/28/22 12/28/22 12/27/22 History quetiapine 25 mg tablet (Seroquel) 12.5 mg PO BEDTIME 12/28/22 12/28/22 12/27/22 History Physical Exam Vital Signs and Narrative: Vital Signs: Last Vital Signs Temp 98.4 F 12/28/22 20:12 Pulse 90 12/28/22 20:12 Resp 16 12/28/22 20:12 BP 127/62 12/28/22 20:12 Pulse Ox 95 12/28/22 20:12 O2 Del Method Room Air 12/28/22 20:12 BMI result Body Mass Index 26.5 General: Alert and oriented to self only, pleasantly confused, no acute distress Resp: CTA bilaterally CVS: S1, S2, regular. 3/6 murmur best heard in aortic position GI: Abdomen with distension, tympanic to percussion. Nontender to palpation. Skin: No rash Neuro: Cranial nerves II-XII grossly intact bilaterally. Motor grossly intact bilaterally Extremities: No edema Psych: Pleasantly confused Results Labs 12/28/22 09:42 12/28/22 09:42 Labs: Laboratory Results - last 24 hr 12/28/22 12/28/22 09:42 20:45 MCV 95.7 MCH 31.5 MCHC 32.9 RDW 12.9 Plt Count 394 MPV 10.6 Immature Gran % (Auto) 0.5 H Neut % (Auto) 85.9 H Lymph % (Auto) 5.9 L [place] % (Auto) 6.4 Eos % (Auto) 1.1 Baso % (Auto) 0.2 Lymph # (Auto) 0.6 L [place] # (Auto) 0.7 Eos # (Auto) 0.1 Baso # (Auto) 0.0 Abs Immat Gran (auto) 0.05 H Absolute Neuts (auto) 9.2 H Absolute Nucleated RBC 0.000 Nucleated RBC % (auto) 0.0 PT 14.1 H INR 1.2 H APTT 32.9 VBG pH 7.54 H VBG pCO2 25 VBG pO2 232 VBG HCO3 22 VBG O2 Saturation 99.0 VBG Base Excess 1.1 Anion Gap 14 Estim Creat Clear Calc 36.2 Estimated GFR 48 Random Glucose 133 H Calcium 8.9 Magnesium 2.1 Total Bilirubin 0.4 AST 13 ALT 9 Alkaline Phosphatase 71 Total Protein 7.3 Albumin 3.6 Imaging Radiologist's Impressions: Impressions Abdomen/Pelvis CT 12/28/22 10:10 IMPRESSION: 1. Small bowel obstruction secondary to an obstructing right inguinal hernia. 2. Cholelithiasis without cholecystitis. 3. Other incidental findings as described above. Fleischner guidelines were followed. Cervical Spine CT 12/28/22 10:10 IMPRESSION: Advanced degenerative changes but no fracture. Fleischner guidelines were followed. Head CT 12/28/22 10:10 IMPRESSION: Stable chronic change. There is no acute intracranial abnormalities. Abdomen/Pelvis CT 12/28/22 14:28 IMPRESSION: Small bowel obstruction secondary to obstructing right inguinal hernia. This is similar to exam from earlier the same day. Small gallstones. Fleischner guidelines were followed. Assessment and Plan (1) Pre-op evaluation: Status: Acute (2) Small bowel obstruction: Status: Acute Plan Patient is an 87-year-old male with PMH significant for TBI, dementia unspecified, CAD, aortic stenosis, CKD 3, Crohn's disease, allergic rhinitis, and iron deficiency anemia who presents from the [facility] for evaluation of vomiting and recent fall with question of head injury. Medical consult for preop clearance SBO secondary to obstructing right inguinal hernia Management per surgery Should surgery be needed, pt will be at a significant risk for perioperative cardiopulmonary complications on the basis of advanced age, hx of dementia, aortic stenosis, and other comorbidities Should discuss potential risks vs benefits with family/health care proxy Will obtain an EKG Iron deficiency anemia H&H stable, seemingly at baseline Continue ferrous sulfate Dementia unspecified/mood disorder Continue Seroquel Allergic rhinitis Continue loratadine, home inhalers Thank you for allowing us to participate in the care of this patient. Will continue following for now. Please let us know if there are any acute complaints or questions. Time Spent With Patient Time: Total time managing care of this patient today ____ minutes.
--- NOTE | 2022-12-28 23:59 | MHC.EDTECH ---
0000 rounding done ,vitals taken ,Pt was incontinent of large amount of stool and urine ,care given and bedding change ,warm blanket given ,Pt comfortable ,has no apparent distress at this time ,will continue to monitor .
[2022-12-29] MEDS: LORazepam 2 MG/ML VIAL 0.5 MG IVPUSH (01:40)
--- NOTE | 2022-12-29 01:45 | PC.NURSE ---
@ 0043 pt noted to be attempted to exit stretcher and self remove iv. pt formerly redirectable. redirection becoming more challenging at this time. this rn reached out to dr ramesh regarding possible orders. no new orders placed @ 0121 art therapy certified supervisor reports that pt attempted to kick art therapy certified supervisor, pt continues to remove iv, and exit stretcher. pt becoming increasingly agitated. this rn made dr ramesh aware. no new orders placed @ 0129 order placed for ativan pt medicated according to may. 1:[address] for safety of pt
--- NOTE | 2022-12-29 01:54 | MHC.EDTECH ---
PT combative, hitting and kicking and spitting at staff, PT repeatedly take clothes and blankets off. One to one sitter at bedside. RN Gale aware of situation.
--- NOTE | 2022-12-29 02:48 | PC.NURSE ---
Addendum entered by Gale Cleary 12/29/22 06:39: pt able to sleep. 1:[address] lights dimmed, curtain open. pt provided with warm blanket Original Note: per dr ramesh. discontinue NS @ 150ml/h5 and only continue D5/LR @ 125ml/hr.
--- NOTE | 2022-12-29 03:21 | PC.NURSE ---
silvio from [facility] called for update on pt status. pt status provided pt remains under 1:1
[2022-12-29 04:00] VITALS: BP 147/64; PULSE 86; RESP 16; TEMP 36.6; O2SAT 97
--- NOTE | 2022-12-29 04:13 | MHC.EDTECH ---
0400 rounding done ,vitals taken ,pt sleeping ,Patient Observer at bedside .
[2022-12-29] MEDS: Dextrose 5 % and Lactated Ring 1,000 ML 125 ML IVCONT ×3 (04:39→20:57)
--- NOTE | 2022-12-29 06:35 | MHC.EDTECH ---
pt was incontinent of urine ,care given and bedding change ,pt agitated and combative ,warm blanket given .
[2022-12-29 06:38] VITALS: BP 152/74; PULSE 88; RESP 14; TEMP 36.5; O2SAT 98
--- NOTE | 2022-12-29 07:24 | PC.NURSE ---
Resumed care of patient, he is currently sleeping, 1:[address] d/t aggression previous shift. D5LR running per order, NS order held per provider request. Safety measures in place, all needs met at this time
--- NOTE | 2022-12-29 09:37 | P.PNGS_ITS ---
Subjective Subjective Date of Service: 12/29/22 Interval history: Patient resting comfortably, no new complaints Physical Exam 2 Vital Signs: Vital Signs: Last Vital Signs Temp 97.7 F 12/29/22 06:38 Pulse 88 12/29/22 06:38 Resp 14 12/29/22 06:38 BP 152/74 H 12/29/22 06:38 Pulse Ox 98 12/29/22 06:38 O2 Del Method Room Air 12/29/22 06:38 BMI result Body Mass Index 26.5 Const: General: comfortable and no acute distress Nutritional Appearance: w ell nourished Orientation/consciousness: patient oriented x3 Limitations: no limitations Resp: Effort & Inspection: normal respiratory effort, no audible wheezes, no cough and no respiratory distress GI: Inspection: Yes normal to inspection and Yes distended Palpation (GI): Soft to palpation, nontender, no guarding, not rigid and Hernia present direct inguinal on the right (Easily reducible with light pressure, no tenderness) P ercussion: Yes tympanic to percussion Rectal Exam - Male: Yes deferred Skin: General skin exam: no rashes or lesions noted Neuro: General: patient oriented x3 Objective Data Active Medications Hydromorphone HCl (Hydromorphone Hcl 0.5 Mg/0.5 Ml Syringe) 0.5 mg IVPUSH Q3H PRN; Protocol PRN Reason: Pain, Severe (Pain Scale 7-10) Sodium Chloride (Ns) 1,000 mls @ 150 mls/hr IVCONT .Q6H40M [facility] Last Admin: 12/29/22 07:24 Dose: Not Given Documented By: PRICE Non-Admin Reason: Duplicate Order Dextrose/Lactated Ringer's (D5lr) 1,000 mls @ 125 mls/hr IVCONT .Q8H [facility] Last Admin: 12/29/22 04:39 Dose: 125 mls/hr Documented By: BRENDA Ondansetron HCl (Ondansetron Hcl 4 Mg/2 Ml Vial) 4 mg IVPUSH QID PRN PRN Reason: Nausea Sodium Chloride (0.9 % Sodium Chloride Flush 3 Ml Syringe) 3 ml IVFLUSH QSHIFT [facility] Last Admin: 12/29/22 07:30 Dose: Not Given Documented By: PRICE Non-Admin Reason: IV Running Labs 12/28/22 09:42 12/28/22 09:42 Labs: Laboratory Results - last 24 hr 12/28/22 12/28/22 09:42 20:45 MCV 95.7 MCH 31.5 MCHC 32.9 RDW 12.9 Plt Count 394 MPV 10.6 Immature Gran % (Auto) 0.5 H Neut % (Auto) 85.9 H Lymph % (Auto) 5.9 L [place] % (Auto) 6.4 Eos % (Auto) 1.1 Baso % (Auto) 0.2 Lymph # (Auto) 0.6 L [place] # (Auto) 0.7 Eos # (Auto) 0.1 Baso # (Auto) 0.0 Abs Immat Gran (auto) 0.05 H Absolute Neuts (auto) 9.2 H Absolute Nucleated RBC 0.000 Nucleated RBC % (auto) 0.0 PT 14.1 H INR 1.2 H APTT 32.9 VBG pH 7.54 H VBG pCO2 25 VBG pO2 232 VBG HCO3 22 VBG O2 Saturation 99.0 VBG Base Excess 1.1 Anion Gap 14 Estim Creat Clear Calc 36.2 Estimated GFR 48 Random Glucose 133 H Calcium 8.9 Magnesium 2.1 Total Bilirubin 0.4 AST 13 ALT 9 Alkaline Phosphatase 71 Total Protein 7.[address] scan - abdomen: Radiologist's impression: Impressions Abdomen/Pelvis CT 12/28/22 10:10 IMPRESSION: 1. Small bowel obstruction secondary to an obstructing right inguinal hernia. 2. Cholelithiasis without cholecystitis. 3. Other incidental findings as described above. Fleischner guidelines were followed. Cervical Spine CT 12/28/22 10:10 IMPRESSION: Advanced degenerative changes but no fracture. Fleischner guidelines were followed. Head CT 12/28/22 10:10 IMPRESSION: Stable chronic change. There is no acute intracranial abnormalities. Abdomen/Pelvis CT 12/28/22 14:28 IMPRESSION: Small bowel obstruction secondary to obstructing right inguinal hernia. This is similar to exam from earlier the same day. Small gallstones. Fleischner guidelines were followed. Procedures Date of Service Date of Service: 12/29/22 Progress Note: A&P Assessment and plan (1) Small bowel obstruction: Status: Acute (2) Reducible right inguinal hernia: Status: Acute Plan 87-year-old male patient with a history of dementia, aortic stenosis, Crohn's disease, previous small bowel surgery, and right inguinal hernia presenting with complaints of nausea and vomiting. Repeat CT abdomen and pelvis with contrast was read by radiologist despite contrast not reaching the inguinal hernia. I do not think on of time was given to allow the contrast to reach the area of obstruction, if any. Difficult for me to say if there is an obstruction occurring at the inguinal hernia or the previous bowel resection. The hernia remains easily reducible with no pain to palpation. Hernia is been present for many years without significant change. Appreciate hospitalist's input. Patient is at significant risk for anesthesia. Discussed with patient's healthcare proxy (Ashley) this morning. I will obtained a small-bowel series to better evaluate the site of obstruction. Patient may require an exploratory laparotomy if obstruction is occurring proximal to the inguinal hernia. Time Spent With Patient Time: Total time managing care of this patient today ____ minutes. Quality Stroke Does the patient have a stroke diagnosis?: No VTE Prior VTE?: No VTE Risk Level:: Surgical - moderate VTE Device Contraindication: N/A - Device Ordered VTE Drug Contraindication: Treatment Not Indicated
[2022-12-29 10:04] VITALS: BP 149/71; PULSE 76; RESP 16; TEMP 36; O2SAT 96
[2022-12-29 15:23] VITALS: BP 136/64; PULSE 75; RESP 18; TEMP 36.4; O2SAT 97
[2022-12-29 15:28] VITALS: BP 131/76; PULSE 66; RESP 16; TEMP 36.6; O2SAT 98
--- NOTE | 2022-12-29 15:38 | MHC.CM.PN ---
IMM 12/29/22 Patient is from the [facility]. DX Incarcerated hernia(reduced) SBO. Prior to admit S/P Fall x2. PMH TBI, Patient requires assist and supervision all functional mobility. He requires bed and chair alarms. HCP on file, Ashley Banegas verified. A Molst is on file, patient is a DNR. Per MD rounds no discharge today. Work up in progress. DP return to the [facility] via BLS.
--- NOTE | 2022-12-29 17:24 | HO.PM.IMPN ---
Subjective Subjective Date of Service: 12/29/22 Interval History: seen and examined this morning follow up for medical consult resting in bed comfortably, wanted to sleep. minimal history/ROS obtained but no specific complaints, denies abdominal pain Physical Exam Vital Signs: Vital Signs: Last Vital Signs Temp 97.8 F 12/29/22 15:28 Pulse 66 12/29/22 15:28 Resp 16 12/29/22 15:28 BP 131/76 12/29/22 15:28 Pulse Ox 98 12/29/22 15:28 O2 Del Method Room Air 12/29/22 15:28 BMI result Body Mass Index 26.5 Const: General: comfortable and no acute distress Nutritional Appearance: average body habitus Resp: Effort & Inspection: normal respiratory effort, able to speak in complete sentences, no respiratory distress and no use of accessory muscles Cardio: Rate: regular rate Heart sounds: Murmur heart sound present GI: Inspection: No distended Palpation (GI): Soft to palpation and nontender Extrem: General: Yes no pedal edema Objective Data Active Medications Hydromorphone HCl (Hydromorphone Hcl 0.5 Mg/0.5 Ml Syringe) 0.5 mg IVPUSH Q3H PRN; Protocol PRN Reason: Pain, Severe (Pain Scale 7-10) Sodium Chloride (Ns) 1,000 mls @ 150 mls/hr IVCONT .Q6H40M [facility] Last Admin: 12/29/22 13:13 Dose: Not Given Documented By: SANDRA Non-Admin Reason: IV Running Dextrose/Lactated Ringer's (D5lr) 1,000 mls @ 125 mls/hr IVCONT .Q8H [facility] Last Admin: 12/29/22 12:18 Dose: 125 mls/hr Documented By: SANDRA Ondansetron HCl (Ondansetron Hcl 4 Mg/2 Ml Vial) 4 mg IVPUSH QID PRN PRN Reason: Nausea Sodium Chloride (0.9 % Sodium Chloride Flush 3 Ml Syringe) 3 ml IVFLUSH QSHIFT [facility] Last Admin: 12/29/22 15:10 Dose: Not Given Documented By: SANDRA Non-Admin Reason: IV Running Labs 12/28/22 09:42 12/28/22 09:42 Labs: Laboratory Results - last 24 hr 12/28/22 20:45 VBG pH 7.54 H VBG pCO2 25 VBG pO2 232 VBG HCO3 22 VBG O2 Saturation 99.0 VBG Base Excess 1.1 Assessment and Plan (1) Reducible right inguinal hernia: Status: Acute Plan Patient is an 87-year-old male with PMH significant for TBI, dementia unspecified, CAD, aortic stenosis, CKD 3, Crohn's disease, allergic rhinitis, and iron deficiency anemia who [facility] of vomiting and recent fall with question of head injury. Medical consult for preop clearance SBO secondary to obstructing right inguinal hernia Management per surgery echo obtained - showing severe and probable MS Should surgery be needed, pt will be at a significant risk for perioperative cardiopulmonary complications on the basis of advanced age, hx of dementia, severe aortic stenosis, and other comorbidities Should discuss potential risks vs benefits with family/health care proxy cardiology consult pending Iron deficiency anemia H&H stable, seemingly at baseline hold iron supplementation for now Dementia unspecified/mood disorder Continue lexapro, Seroquel Allergic rhinitis loratadine on hold continue home inhalers CKD3 creatinine appears to be at baseline follow renal function Thank you for allowing us to participate in the care of this patient. Will continue following for now. Time Spent With Patient Time: Total time managing care of this patient today ____ minutes. Quality Stroke Does the patient have a stroke diagnosis?: No VTE Prior VTE?: No VTE Risk Level:: Surgical - moderate VTE Device Contraindication: N/A - Device Ordered VTE Drug Contraindication: Treatment Not Indicated
[2022-12-29] MEDS: 0.9 % Sodium Chloride Flush 3 ML SYRINGE IVFLUSH (19:40)
[2022-12-29 20:00] VITALS: BP 131/62; PULSE 85; RESP 16; TEMP 36.4; O2SAT 93
[2022-12-30 03:26] VITALS: BP 135/71; PULSE 70; RESP 17; TEMP 36.4; O2SAT 95
[2022-12-30] MEDS: Dextrose 5 % and Lactated Ring 1,000 ML 125 ML IVCONT (04:50)
[2022-12-30 06:04] LABS: Anion Gap 13 (12-20); Blood Urea Nitrogen 13 mg/dL (9-16); Calcium 8.4 mg/dL (8.4-10.2); Carbon Dioxide 23 mmol/L (22-29); Chloride 108 mmol/L (96-108); Creatinine Clr Calc Pharmacy 46.1; Estimated Glomerular Filt Rate > 60; Glucose Random 108 mg/dL (60-115); Potassium 3.9 mmol/L (3.3-5.1); Sodium 140 mmol/L (135-145)
[2022-12-30 07:30] VITALS: BP 174/79; PULSE 70; RESP 18; TEMP 36.3; O2SAT 99
--- NOTE | 2022-12-30 07:54 | PM.PNGS ---
Subjective Subjective Date of Service: 12/30/22 Interval history: Patient passed a large bowel movement this morning. GI study reviewed, images stop at 2 hours contrast noted at entrance of hernia although no scrotal images obtained. Radiology report describes as high grade obstruction although patient is now passing bowels. Will check abdominal KUB this morning to check progress of contrast. Contrast from CT clearly seen in colon. Echocardiogram results discussed with hospitalist team. Patient clearly at high risk for surgery, and if contrast is passing through hernia, safest option would be to avoid surgery. Will check x-ray results this morning. Physical Exam Vital Signs: Vital Signs: Last Vital Signs Temp 97.4 F 12/30/22 07:30 Pulse 70 12/30/22 07:30 Resp 18 12/30/22 07:30 BP 174/79 H 12/30/22 07:30 Pulse Ox 99 12/30/22 07:30 O2 Del Method Room Air 12/30/22 07:30 BMI result Body Mass Index 26.5 Objective Data Active Medications Albuterol Sulfate (Albuterol Sulfate (0.083%) 2.5 Mg/3 Ml Vial.Neb) 2.5 mg INHALE Q4H PRN PRN Reason: Shortness of Breath Escitalopram Oxalate (Escitalopram Oxalate 5 Mg Tablet) 5 mg PO DAILY [facility] Hydromorphone HCl (Hydromorphone Hcl 0.5 Mg/0.5 Ml Syringe) 0.5 mg IVPUSH Q3H PRN; Protocol PRN Reason: Pain, Severe (Pain Scale 7-10) Sodium Chloride (Ns) 1,000 mls @ 150 mls/hr IVCONT .Q6H40M [facility] Last Admin: 12/30/22 04:46 Dose: Not Given Documented By: PIPER Non-Admin Reason: IV Running Dextrose/Lactated Ringer's (D5lr) 1,000 mls @ 125 mls/hr IVCONT .Q8H [facility] Last Admin: 12/30/22 04:50 Dose: 125 mls/hr Documented By: PIPER Ondansetron HCl (Ondansetron Hcl 4 Mg/2 Ml Vial) 4 mg IVPUSH QID PRN PRN Reason: Nausea Quetiapine Fumarate (Quetiapine Fumarate 25 Mg Tablet) 12.5 mg PO BEDTIME [facility] Last Admin: 12/29/22 19:39 Dose: 12.5 mg Documented By: PIPER Sodium Chloride (0.9 % Sodium Chloride Flush 3 Ml Syringe) 3 ml IVFLUSH QSHIFT [facility] Last Admin: 12/30/22 07:42 Dose: Not Given Documented By: SANDRA Non-Admin Reason: IV Running Labs 12/30/22 05:43 12/30/22 05:43 Labs: Laboratory Results - last 24 hr 12/30/22 05:43 MCV 96.1 MCH 30.9 MCHC 32.2 RDW 12.7 Plt Count 323 MPV 9.9 Absolute Nucleated RBC 0.000 Nucleated RBC % (auto) 0.0 Anion Gap 13 Estim Creat Clear Calc 46.1 Estimated GFR > 60 Random Glucose 108 Calcium 8.4 Procedures Date of Service Date of Service: 12/30/22 Progress Note: A&P Time Spent With Patient Time: Total time managing care of this patient today ____ minutes. Quality Stroke Does the patient have a stroke diagnosis?: No VTE Prior VTE?: No VTE Risk Level:: Surgical - moderate VTE Device Contraindication: N/A - Device Ordered VTE Drug Contraindication: Treatment Not Indicated
--- NOTE | 2022-12-30 10:06 | PM.CNCAR ---
History of Present Illness History of Present Illness Date of Service: 12/30/22 Chief complaint: Small Bowel Obstruction Narrative: This is a cardiology consultation regarding preoperative risk stratification for bowel surgery. It seems that patient might be having bowel obstruction and hence may need surgery. Patient really not able to give much information. Yesterday, he had an echocardiogram and that showed severe aortic stenosis. In terms of symptoms, he is denying any active symptoms like chest pain but can get any prior history. Review of Systems Review of Systems: Yes all other systems are reviewed and are negative Constitutional: Constitutional: Reports as per HPI and Reports no additional constitutional complaints Eyes: Eyes: Reports as per HPI and Denies no additional eye complaints ENT: Denies system reviewed and no additional complaints, except as documented and Reports as per HPI Cardiovascular: Cardiovascular: Reports as per HPI, Reports no additional cardiovascular complaints, Denies acrocyanosis, Denies cool extremities, Denies chest pain, Denies leg edema, Denies lightheadedness, Denies palpitations and Denies dyspnea Respiratory: Respiratory: Reports as per HPI, Denies no additional respiratory complaints and Denies dyspnea Gastrointestinal: Gastrointestinal: Reports as per HPI and Denies no additional gastrointestinal complaints Genitourinary: Genitourinary: Reports no additional male genitourinary complaints and Reports as per HPI Musculoskeletal: Musculoskeletal: Reports no additional musculoskeletal complaints and Reports as per HPI Integumentary/Breasts: Skin/Breast: Reports system reviewed and no additional complaints, except as docu Neurologic: Reports system reviewed and no additional complaints, except as documented and Reports as per HPI Psychiatric: Psychiatric: Reports no additional psychiatric complaints and Reports as per HPI Endocrine: Endocrine: Reports no additional endocrine complaints, Reports as per HPI and Denies palpitations Hematologic/Lymphatic: Hematologic/Lymphatic: Reports no additional hematologic/lymphatic complaints and Reports as per HPI Allergic/Immunologic: Allergic/Immunologic: Reports no additional allergic/immunologic complaints and Reports as per HPI [facility] Past Medical History Medical History (Updated 12/30/22 @ 10:09 by Arnel Ferreira MD) Dementia Family History Pertinent family history: Unable to obtain Social History Social History Household Members: Other Household Members Other:: From [facility] Housing: [facility] Unable to assess alcohol history related to: Unknown Patient Tobacco Use Status: Tobacco use Unknown Smoked in Last 30 Days: No Use of substances other than those prescribed or required for medical reasons: Unknown Currently Displaying Signs/Symptoms of Drug Intoxication Withdrawal: No Advance Directives: Yes Advance Directives on File: Yes Advance Directives Date on File: 03/03/22 Do you have thoughts of harming others: None Do you have a plan to hurt others: No Plan Recently lost weight without trying: Unsure How much weight loss: Unsure Nutrition Risks: No Nutritional Risk service: Yes Meds Allergies Allergy/AdvReac Type Severity Reaction Status Date / Time No Known Allergies Allergy Verified 03/02/22 00:18 Active Medications: Current Medications Albuterol Sulfate (Albuterol Sulfate (0.083%) 2.5 Mg/3 Ml Vial.Neb) 2.5 mg INHALE Q4H PRN PRN Reason: Shortness of Breath Escitalopram Oxalate (Escitalopram Oxalate 5 Mg Tablet) 5 mg PO DAILY [facility] Hydromorphone HCl (Hydromorphone Hcl 0.5 Mg/0.5 Ml Syringe) 0.5 mg IVPUSH Q3H PRN; Protocol PRN Reason: Pain, Severe (Pain Scale 7-10) Dextrose/Lactated Ringer's (D5lr) 1,000 mls @ 50 mls/hr IVCONT .Q20H [facility] Last Infusion: 12/30/22 09:16 Dose: 50 mls/hr Ondansetron HCl (Ondansetron Hcl 4 Mg/2 Ml Vial) 4 mg IVPUSH QID PRN PRN Reason: Nausea Quetiapine Fumarate (Quetiapine Fumarate 25 Mg Tablet) 12.5 mg PO BEDTIME [facility] Last Admin: 12/29/22 19:39 Dose: 12.5 mg Sodium Chloride (0.9 % Sodium Chloride Flush 3 Ml Syringe) 3 ml IVFLUSH QSHIFT [facility] Last Admin: 12/30/22 07:42 Dose: Not Given Home Medications Medication Instructions Recorded Confirmed Last Taken Type albuterol sulfate 2.5 mg/3 mL 2.5 mg inhalation Q4H PRN SOB 12/28/22 12/28/22 12/27/22 History (0.083 %) solution for nebulization aluminum-mag hydroxide-simethicone 30 ml PO QID PRN GI UPSET/HEARTBURN 12/28/22 12/28/22 12/27/22 History 200 mg-200 mg-20 mg/5 mL oral susp carboxymethylcellulose sodium 1 % 1 drp ophthalmic (eye) TID 12/28/22 12/28/22 12/27/22 History eye drops cholecalciferol (vitamin D3) 25 25 mcg PO DAILY 12/28/22 12/28/22 12/27/22 History mcg (1,000 unit) tablet cyanocobalamin (vitamin B-12) 1,000 mcg PO DAILY 12/28/22 12/28/22 12/27/22 History 1,000 mcg tablet escitalopram oxalate 5 mg tablet 5 mg PO DAILY 12/28/22 12/28/22 12/27/22 History (Lexapro) ferrous sulfate 325 mg (65 mg 325 mg PO BID 12/28/22 12/28/22 12/27/22 History iron) tablet loratadine 10 mg capsule 10 mg PO DAILY 12/28/22 12/28/22 12/27/22 History quetiapine 25 mg tablet (Seroquel) 12.5 mg PO BEDTIME 12/28/22 12/28/22 12/27/22 History Physical Exam Vital Signs: Vital Signs: Last Vital Signs Temp 97.4 F 12/30/22 07:30 Pulse 70 12/30/22 07:30 Resp 18 12/30/22 07:30 BP 174/79 H 12/30/22 07:30 Pulse Ox 99 12/30/22 07:30 O2 Del Method Room Air 12/30/22 07:30 BMI result Body Mass Index 26.5 Const: General: comfortable and no acute distress Orientation/consciousness: No patient oriented x3 HEENT: Other: Unremarkable Head: Yes normal to inspection Neck: Neck: Yes normal visual inspection Chest: Chest palpation & inspection: normal inspection of the chest Resp: Auscultation: clear to auscultation bilaterally Cardio: Palpation: normal PMI Heart sounds: S1 normal heart sound present, S2 normal heart sound present, no gallops, Murmur heart sound present systolic III/ and at the right sternal border and no rubs GI: Palpation (GI): Soft to palpation Back/Spine/Pelvis: Other: unremarkable Skin: General skin exam: no rashes or lesions noted Neuro: General: No patient oriented x3 Extrem: General: Yes normal to inspection Psych: Mental Status: mental status grossly abnormal Objective Labs and Meds 12/30/22 05:43 12/30/22 05:43 Lab results: Laboratory Results - last 24 hr 12/30/22 05:43 WBC 5.6 RBC 3.33 L Hgb 10.3 L Hct 32.0 L MCV 96.1 MCH 30.9 MCHC 32.2 RDW 12.7 Plt Count 323 MPV 9.9 Absolute Nucleated RBC 0.000 Nucleated RBC % (auto) 0.0 Sodium 140 Potassium 3.9 Chloride 108 Carbon Dioxide 23 Anion Gap 13 BUN 13 Creatinine 1.09 Estim Creat Clear Calc 46.1 Estimated GFR > 60 Random Glucose 108 Calcium 8.4 ECG Interpretation: EKG with sinus rhythm at 88/Min; no significant ST-T changes and otherwise unremarkable. Imaging Radiologist's impression: Impressions Upper GI and Small Bowel X-Ray 12/29/22 12:56 IMPRESSION: High-grade mechanical small bowel obstruction secondary to incarcerated right inguinal hernia. Assessment and Plan (1) Preoperative cardiovascular examination: Status: Acute (2) Small bowel obstruction: Status: Acute (3) Nonrheumatic aortic (valve) stenosis: Status: Acute (4) Dementia: Status: Acute Plan Echocardiogram with hyperdynamic LVEF. Severe aortic stenosis with a valve area of 0.57 sq cm. Mean gradient across aortic valve 47 mm Hg. There is also mitral stenosis related from severe mitral annular calcification. Overall, high cardiac risk for any abdominal surgery considering age, frailty as well as echocardiographic findings. If able, avoid surgery as much. If surgery is only option, then consider proceeding as long as family understand the risks, including perioperative . Time Spent With Patient Time: Total time managing care of this patient today ____ minutes. Procedures Date of Service Date of Service: 12/30/22
--- NOTE | 2022-12-30 14:30 | MHC.CM.PN ---
per vance pt not medically ready for dc back to [facility]
[2022-12-30 15:17] VITALS: BP 153/76; PULSE 75; RESP 18; TEMP 36.6; O2SAT 96
--- NOTE | 2022-12-30 16:20 | HO.PM.IMPN ---
Subjective Subjective Date of Service: 12/30/22 Interval History: seen and examined this morning pleasantly confused, denies any specific complaints denies abdominal pain Review of Systems Review of Systems: Yes all other systems are reviewed and are negative Cardiovascular Cardiovascular: Denies chest pain and Denies dyspnea Respiratory Respiratory: Denies dyspnea Gastrointestinal Gastrointestinal: Denies abdominal pain Physical Exam Vital Signs: Vital Signs: Last Vital Signs Temp 97.8 F 12/30/22 15:17 Pulse 75 12/30/22 15:17 Resp 18 12/30/22 15:17 BP 153/76 H 12/30/22 15:17 Pulse Ox 96 12/30/22 15:17 O2 Del Method Room Air 12/30/22 15:17 BMI result Body Mass Index 26.5 Const: General: comfortable and no acute distress Nutritional Appearance: average body habitus Resp: Effort & Inspection: normal respiratory effort, able to speak in complete sentences, no respiratory distress and no use of accessory muscles Cardio: Rate: regular rate Heart sounds: Murmur heart sound present GI: Inspection: No distended Palpation (GI): Soft to palpation and nontender Extrem: General: Yes no pedal edema Objective Data Active Medications Albuterol Sulfate (Albuterol Sulfate (0.083%) 2.5 Mg/3 Ml Vial.Neb) 2.5 mg INHALE Q4H PRN PRN Reason: Shortness of Breath Escitalopram Oxalate (Escitalopram Oxalate 5 Mg Tablet) 5 mg PO DAILY [facility] Last Admin: 12/30/22 11:07 Dose: Not Given Documented By: SANDRA Non-Admin Reason: NPO Hydromorphone HCl (Hydromorphone Hcl 0.5 Mg/0.5 Ml Syringe) 0.5 mg IVPUSH Q3H PRN; Protocol PRN Reason: Pain, Severe (Pain Scale 7-10) Dextrose/Lactated Ringer's (D5lr) 1,000 mls @ 50 mls/hr IVCONT .Q20H [facility] Last Infusion: 12/30/22 09:16 Dose: 50 mls/hr Documented By: SANDRA Ondansetron HCl (Ondansetron Hcl 4 Mg/2 Ml Vial) 4 mg IVPUSH QID PRN PRN Reason: Nausea Quetiapine Fumarate (Quetiapine Fumarate 25 Mg Tablet) 12.5 mg PO BEDTIME [facility] Last Admin: 12/29/22 19:39 Dose: 12.5 mg Documented By: PIPER Sodium Chloride (0.9 % Sodium Chloride Flush 3 Ml Syringe) 3 ml IVFLUSH QSHIFT [facility] Last Admin: 12/30/22 15:15 Dose: Not Given Documented By: SANDRA Non-Admin Reason: IV Running Labs 12/30/22 05:43 12/30/22 05:43 Labs: Laboratory Results - last 24 hr 12/30/22 05:43 MCV 96.1 MCH 30.9 MCHC 32.2 RDW 12.7 Plt Count 323 MPV 9.9 Absolute Nucleated RBC 0.000 Nucleated RBC % (auto) 0.0 Anion Gap 13 Estim Creat Clear Calc 46.1 Estimated GFR > 60 Random Glucose 108 Calcium 8.4 Assessment and Plan (1) Nonrheumatic aortic (valve) stenosis: Status: Acute Plan Patient is an 87-year-old male with PMH significant for TBI, dementia unspecified, CAD, aortic stenosis, CKD 3, Crohn's disease, allergic rhinitis, and iron deficiency anemia who presents [facility] for evaluation of vomiting and recent fall with question of head injury. Medical consult for preop clearance SBO secondary to obstructing right inguinal hernia Management per surgery - contrast seen in colon, had BM this morning. plan to continue conservative management for now echo obtained - showing severe and probable MS Should surgery be needed, pt will be at a significant risk for perioperative cardiopulmonary complications on the basis of advanced age, hx of dementia, severe aortic stenosis, and other comorbidities Should discuss potential risks vs benefits with family/health care proxy seen by cardiology - pt high risk, avoid surgery if able Iron deficiency anemia H&H stable, seemingly at baseline hold iron supplementation for now, can resume when tolerating po Dementia unspecified/mood disorder Continue lexapro, Seroquel Allergic rhinitis loratadine on hold continue home inhalers CKD3 creatinine appears to be at baseline follow renal function Thank you for allowing us to participate in the care of this patient. Will continue following for now. Time Spent With Patient Time: Total time managing care of this patient today ____ minutes. Quality Stroke Does the patient have a stroke diagnosis?: No VTE Prior VTE?: No VTE Risk Level:: Surgical - moderate VTE Device Contraindication: N/A - Device Ordered VTE Drug Contraindication: Treatment Not Indicated
[2022-12-30 20:00] VITALS: BP 142/74; PULSE 87; RESP 17; TEMP 36.4; O2SAT 96
[2022-12-31 04:00] VITALS: BP 176/79; PULSE 72; RESP 18; TEMP 36.3; O2SAT 94
[2022-12-31 07:30] VITALS: BP 151/82; PULSE 74; RESP 15; TEMP 36.9; O2SAT 96
--- NOTE | 2022-12-31 14:46 | HO.PM.IMPN ---
Subjective Subjective Date of Service: 12/31/22 Interval History: seen and examined this morning follow up for medical consultation no overnight events awake, alert with no specific complaints this morning. states his abdomen is feeling great Review of Systems Review of Systems: Yes all other systems are reviewed and are negative Cardiovascular Cardiovascular: Denies chest pain Gastrointestinal Gastrointestinal: Denies abdominal pain Physical Exam Vital Signs: Vital Signs: Last Vital Signs Temp 98.5 F 12/31/22 07:30 Pulse 74 12/31/22 07:30 Resp 15 12/31/22 07:30 BP 151/82 H 12/31/22 07:30 Pulse Ox 96 12/31/22 07:30 O2 Del Method Room Air 12/31/22 07:30 BMI result Body Mass Index 26.5 Const: General: comfortable, no acute distress, alert and awake Nutritional Appearance: average body habitus Orientation/consciousness: oriented to person Resp: Effort & Inspection: normal respiratory effort, able to speak in complete sentences, no respiratory distress and no use of accessory muscles Cardio: Rate: regular rate Heart sounds: Murmur heart sound present GI: Palpation (GI): Soft to palpation and nontender Neuro: General: oriented to person Extrem: General: Yes no pedal edema Objective Data Active Medications Albuterol Sulfate (Albuterol Sulfate (0.083%) 2.5 Mg/3 Ml Vial.Neb) 2.5 mg INHALE Q4H PRN PRN Reason: Shortness of Breath Escitalopram Oxalate (Escitalopram Oxalate 5 Mg Tablet) 5 mg PO DAILY [facility] Last Admin: 12/31/22 10:04 Dose: 5 mg Documented By: GERALD Hydromorphone HCl (Hydromorphone Hcl 0.5 Mg/0.5 Ml Syringe) 0.5 mg IVPUSH Q3H PRN; Protocol PRN Reason: Pain, Severe (Pain Scale 7-10) Dextrose/Lactated Ringer's (D5lr) 1,000 mls @ 50 mls/hr IVCONT .Q20H [facility] Last Admin: 12/31/22 13:10 Dose: 50 mls/hr Documented By: GERALD Ondansetron HCl (Ondansetron Hcl 4 Mg/2 Ml Vial) 4 mg IVPUSH QID PRN PRN Reason: Nausea Quetiapine Fumarate (Quetiapine Fumarate 25 Mg Tablet) 12.5 mg PO BEDTIME [facility] Last Admin: 12/30/22 20:47 Dose: 12.5 mg Documented By: ZE Sodium Chloride (0.9 % Sodium Chloride Flush 3 Ml Syringe) 3 ml IVFLUSH QSHIFT [facility] Last Admin: 12/31/22 09:28 Dose: Not Given Documented By: JAMARCUS Non-Admin Reason: IV Running Labs 12/30/22 05:43 12/30/22 05:43 Assessment and Plan (1) Dementia: Status: Acute (2) Nonrheumatic aortic (valve) stenosis: Status: Acute Plan Patient is an 87-year-old male with PMH significant for TBI, dementia unspecified, CAD, aortic stenosis, CKD 3, Crohn's disease, allergic rhinitis, and iron deficiency anemia who [facility] of vomiting and recent fall with question of head injury. Medical consult for preop clearance SBO secondary to obstructing right inguinal hernia Management per surgery - contrast seen in colon, had BM this morning. plan to continue conservative management for now echo obtained - showing severe and probable MS Should surgery be needed, pt will be at a significant risk for perioperative cardiopulmonary complications on the basis of advanced age, hx of dementia, severe aortic stenosis, and other comorbidities seen by cardiology - pt high risk, avoid surgery if able Iron deficiency anemia H&H stable, seemingly at baseline and above transfusion threshold hold iron supplementation for now, can resume when tolerating po Dementia unspecified/mood disorder Continue lexapro, Seroquel Allergic rhinitis loratadine on hold continue home inhalers CKD3 creatinine appears to be at baseline follow renal function Thank you for allowing us to participate in the care of this patient. Will continue following for now. Time Spent With Patient Time: Total time managing care of this patient today ____ minutes. Quality Stroke Does the patient have a stroke diagnosis?: No VTE Prior VTE?: No VTE Risk Level:: Surgical - moderate VTE Device Contraindication: N/A - Device Ordered VTE Drug Contraindication: Treatment Not Indicated
[2022-12-31 15:33] VITALS: BP 143/65; PULSE 88; RESP 16; TEMP 37.1; O2SAT 99
[2022-12-31 20:27] VITALS: BP 167/77; PULSE 81; RESP 18; TEMP 36.7; O2SAT 97
--- NOTE | 2022-12-31 20:36 | PM.PNGS ---
Subjective Subjective Date of Service: 12/31/22 Interval history: pt confused but doing well, eating and tolerating po diet with bowel movement again today Physical Exam Vital Signs: Vital Signs: Last Vital Signs Temp 98.0 F 12/31/22 20:27 Pulse 81 12/31/22 20:27 Resp 18 12/31/22 20:27 BP 167/77 H 12/31/22 20:27 Pulse Ox 97 12/31/22 20:27 O2 Del Method Room Air 12/31/22 20:27 BMI result Body Mass Index 26.5 GI: Other: abdo soft nontender nondistended and good bowel sounds - the hernia is easily reducible Objective Data Active Medications Albuterol Sulfate (Albuterol Sulfate (0.083%) 2.5 Mg/3 Ml Vial.Neb) 2.5 mg INHALE Q4H PRN PRN Reason: Shortness of Breath Escitalopram Oxalate (Escitalopram Oxalate 5 Mg Tablet) 5 mg PO DAILY [facility] Last Admin: 12/31/22 10:04 Dose: 5 mg Documented By: GERALD Hydromorphone HCl (Hydromorphone Hcl 0.5 Mg/0.5 Ml Syringe) 0.5 mg IVPUSH Q3H PRN; Protocol PRN Reason: Pain, Severe (Pain Scale 7-10) Dextrose/Lactated Ringer's (D5lr) 1,000 mls @ 50 mls/hr IVCONT .Q20H [facility] Last Admin: 12/31/22 13:10 Dose: 50 mls/hr Documented By: GERALD Ondansetron HCl (Ondansetron Hcl 4 Mg/2 Ml Vial) 4 mg IVPUSH QID PRN PRN Reason: Nausea Quetiapine Fumarate (Quetiapine Fumarate 25 Mg Tablet) 12.5 mg PO BEDTIME [facility] Last Admin: 12/31/22 19:52 Dose: 12.5 mg Documented By: BLANCHE Sodium Chloride (0.9 % Sodium Chloride Flush 3 Ml Syringe) 3 ml IVFLUSH QSHIFT [facility] Last Admin: 12/31/22 15:06 Dose: Not Given Documented By: JAMARCUS Non-Admin Reason: IV Running Labs 12/30/22 05:43 12/30/22 05:43 Procedures Date of Service Date of Service: 12/31/22 Progress Note: A&P Assessment and plan (1) Small bowel obstruction: Status: Acute Plan pt doing well re SBO issues - having bowel movemetns no n/v tolerating po diet advanced diet and no issues with hernia pt too high risk for elective surgery and even emergent surgery try to get back to home monday or monday appreciate med team following Time Spent With Patient Time: Total time managing care of this patient today ____ minutes. Quality Stroke Does the patient have a stroke diagnosis?: No VTE Prior VTE?: No VTE Risk Level:: Surgical - moderate VTE Device Contraindication: N/A - Device Ordered VTE Drug Contraindication: Treatment Not Indicated
[2022-12-31 22:49] VITALS: PULSE 80; RESP 20; O2SAT 95
[2023-01-01 03:25] VITALS: BP 147/71; PULSE 92; RESP 16; TEMP 36.3; O2SAT 95
[2023-01-01 06:55] LABS: Anion Gap 14 (12-20); Blood Urea Nitrogen 10 mg/dL (9-16); Calcium 8.5 mg/dL (8.4-10.2); Carbon Dioxide 21 mmol/L (22-29); Chloride 107 mmol/L (96-108); Creatinine Clr Calc Pharmacy 42.3; Estimated Glomerular Filt Rate 58; Glucose Random 111 mg/dL (60-115); Potassium 3.7 mmol/L (3.3-5.1); Sodium 138 mmol/L (135-145)
[2023-01-01 07:32] VITALS: BP 142/77; PULSE 79; RESP 16; TEMP 36.6; O2SAT 98
--- NOTE | 2023-01-01 12:57 | HO.PM.IMPN ---
Subjective Subjective Date of Service: 01/01/23 Interval History: seen and examined this morning follow up for medical consultation no overnight events. feels well, denies abdominal pain Review of Systems Review of Systems: Yes all other systems are reviewed and are negative Constitutional Constitutional: Denies chills and Denies fever(s) Cardiovascular Cardiovascular: Denies chest pain, Denies palpitations and Denies dyspnea Respiratory Respiratory: Denies cough and Denies dyspnea Endocrine Endocrine: Denies palpitations Physical Exam Vital Signs: Vital Signs: Last Vital Signs Temp 97.9 F 01/01/23 07:32 Pulse 79 01/01/23 07:32 Resp 16 01/01/23 07:32 BP 142/77 H 01/01/23 07:32 Pulse Ox 98 01/01/23 07:32 O2 Del Method Room Air 01/01/23 07:32 BMI result Body Mass Index 26.5 Const: General: comfortable, no acute distress, alert and awake Nutritional Appearance: average body habitus Orientation/consciousness: oriented to person Resp: Other: scattered wheeze Effort & Inspection: normal respiratory effort, able to speak in complete sentences, no respiratory distress and no use of accessory muscles Cardio: Rate: regular rate Heart sounds: Murmur heart sound present GI: Inspection: No distended Palpation (GI): Soft to palpation and nontender Neuro: General: oriented to person Extrem: General: Yes no pedal edema Objective Data Active Medications Albuterol Sulfate (Albuterol Sulfate (0.083%) 2.5 Mg/3 Ml Vial.Neb) 2.5 mg INHALE Q4H PRN PRN Reason: Shortness of Breath Last Admin: 01/01/23 08:42 Dose: 2.5 mg Documented By: JAMARCUS Escitalopram Oxalate (Escitalopram Oxalate 5 Mg Tablet) 5 mg PO DAILY [facility] Last Admin: 01/01/23 08:38 Dose: 5 mg Documented By: JAMARCUS Hydromorphone HCl (Hydromorphone Hcl 0.5 Mg/0.5 Ml Syringe) 0.5 mg IVPUSH Q3H PRN; Protocol PRN Reason: Pain, Severe (Pain Scale 7-10) Ondansetron HCl (Ondansetron Hcl 4 Mg/2 Ml Vial) 4 mg IVPUSH QID PRN PRN Reason: Nausea Quetiapine Fumarate (Quetiapine Fumarate 25 Mg Tablet) 12.5 mg PO BEDTIME [facility] Last Admin: 12/31/22 19:52 Dose: 12.5 mg Documented By: BLANCHE Sodium Chloride (0.9 % Sodium Chloride Flush 3 Ml Syringe) 3 ml IVFLUSH QSHIFT [facility] Last Admin: 01/01/23 08:38 Dose: 3 ml Documented By: CARROLLNM Labs 01/01/23 05:51 01/01/23 05:51 Labs: Laboratory Results - last 24 hr 01/01/23 05:51 MCV 94.5 MCH 31.0 MCHC 32.8 RDW 12.3 Plt Count 356 MPV 10.8 Absolute Nucleated RBC 0.000 Nucleated RBC % (auto) 0.0 Anion Gap 14 Estim Creat Clear Calc 42.3 Estimated GFR 58 Random Glucose 111 Calcium 8.5 Assessment and Plan (1) Dementia: Status: Acute (2) Nonrheumatic aortic (valve) stenosis: Status: Acute Plan Patient is an 87-year-old male with PMH significant for TBI, dementia unspecified, CAD, aortic stenosis, CKD 3, Crohn's disease, allergic rhinitis, and iron deficiency anemia [facility] and recent fall with question of head injury. Medical consult for preop clearance SBO secondary to obstructing right inguinal hernia Management per surgery - contrast seen in colon, having BMs. plan to continue conservative management for now echo obtained - showing severe and probable MS Should surgery be needed, pt will be at a significant risk for perioperative cardiopulmonary complications on the basis of advanced age, hx of dementia, severe aortic stenosis, and other comorbidities seen by cardiology - pt high risk, avoid surgery if able Iron deficiency anemia H&H stable, seemingly at baseline and above transfusion threshold hold iron supplementation for now, can resume when tolerating po Dementia unspecified/mood disorder Continue lexapro, Seroquel Allergic rhinitis loratadine on hold continue home inhalers CKD3 creatinine appears to be at baseline follow renal function Thank you for allowing us to participate in the care of this patient. Will continue following Time Spent With Patient Time: Total time managing care of this patient today ____ minutes. Quality Stroke Does the patient have a stroke diagnosis?: No VTE Prior VTE?: No VTE Risk Level:: Surgical - moderate VTE Device Contraindication: N/A - Device Ordered VTE Drug Contraindication: Treatment Not Indicated
--- NOTE | 2023-01-01 15:25 | MHC.CM.PN ---
inquiring RE D/C for Pt's return to [facility]s Home. This CM called and spoke to Yoselin (plant maintenance supervisor) who indicated that it was too late today, pharmacy closed and D/C Summary required prior to D/C. Fax for D/C Summary tomorrow 01/02 is: [phone], ATTN: Lexii Beckman (plant maintenance supervisor on tomorrow 01/02/23). Yoselin states Pt is welcome to return tomorrow barring no IVs and D/C Summary's arrival ahead of time. Message relayed to . CM to follow.
--- NOTE | 2023-01-01 15:59 | PM.PNGS ---
Subjective Subjective Date of Service: 01/01/23 Interval history: feels well no issues Physical Exam Vital Signs: Vital Signs: Last Vital Signs Temp 97.9 F 01/01/23 07:32 Pulse 79 01/01/23 07:32 Resp 16 01/01/23 07:32 BP 142/77 H 01/01/23 07:32 Pulse Ox 98 01/01/23 07:32 O2 Del Method Room Air 01/01/23 07:32 BMI result Body Mass Index 26.5 GI: Other: abdomen soft hernia reducible Objective Data Active Medications Albuterol Sulfate (Albuterol Sulfate (0.083%) 2.5 Mg/3 Ml Vial.Neb) 2.5 mg INHALE Q4H PRN PRN Reason: Shortness of Breath Last Admin: 01/01/23 08:42 Dose: 2.5 mg Documented By: JAMARCUS Escitalopram Oxalate (Escitalopram Oxalate 5 Mg Tablet) 5 mg PO DAILY [facility] Last Admin: 01/01/23 08:38 Dose: 5 mg Documented By: JAMARCUS Hydromorphone HCl (Hydromorphone Hcl 0.5 Mg/0.5 Ml Syringe) 0.5 mg IVPUSH Q3H PRN; Protocol PRN Reason: Pain, Severe (Pain Scale 7-10) Ondansetron HCl (Ondansetron Hcl 4 Mg/2 Ml Vial) 4 mg IVPUSH QID PRN PRN Reason: Nausea Quetiapine Fumarate (Quetiapine Fumarate 25 Mg Tablet) 12.5 mg PO BEDTIME [facility] Last Admin: 12/31/22 19:52 Dose: 12.5 mg Documented By: BLANCHE Sodium Chloride (0.9 % Sodium Chloride Flush 3 Ml Syringe) 3 ml IVFLUSH QSHIFT [facility] Last Admin: 01/01/23 08:38 Dose: 3 ml Documented By: JAMARCUS Labs 01/01/23 05:51 01/01/23 05:51 Labs: Laboratory Results - last 24 hr 01/01/23 05:51 MCV 94.5 MCH 31.0 MCHC 32.8 RDW 12.3 Plt Count 356 MPV 10.8 Absolute Nucleated RBC 0.000 Nucleated RBC % (auto) 0.0 Anion Gap 14 Estim Creat Clear Calc 42.3 Estimated GFR 58 Random Glucose 111 Calcium 8.5 Procedures Date of Service Date of Service: 01/01/23 Progress Note: A&P Assessment and plan (1) Small bowel obstruction: Status: Acute Assessment and Plan: doing well no issues re obstruction hernia is stable and no plan for surgical repair at this time as pt is very high risk for surgery eating dysphagia diet [facility] health care analyst team Time Spent With Patient Time: Total time managing care of this patient today ____ minutes. Quality Stroke Does the patient have a stroke diagnosis?: No VTE Prior VTE?: No VTE Risk Level:: Surgical - moderate VTE Device Contraindication: N/A - Device Ordered VTE Drug Contraindication: Treatment Not Indicated
[2023-01-01 16:00] VITALS: BP 135/69; PULSE 68; RESP 16; TEMP 36.3; O2SAT 98
[2023-01-01 19:47] VITALS: BP 148/66; PULSE 84; RESP 18; TEMP 36.8; O2SAT 93
--- NOTE | 2023-01-01 20:12 | PM.EVENT ---
Event Note Date of Service: 01/01/23 Event Note: Called to evaluate redness at left arm IV infiltration site. Site erythematous, nontender mildly warm, no fever. Should continue to monitor, will hold off on antibiotics at this time Time Spent With Patient Time: Total time managing care of this patient today ____ minutes.
[2023-01-02 04:00] VITALS: BP 158/70; PULSE 83; RESP 16; TEMP 36; O2SAT 92
--- NOTE | 2023-01-02 07:13 | PM.DS ---
DS: Providers Provider Date of Service: 01/02/23 Date of admission: 12/28/22 19:32 Date of discharge: 01/02/23 Primary care physician: Unknown Physician Admitting clinician: Amadeo Briscoe Consults: 12/28/22 19:31 Consult to Hospitalist Routine Comment: Consulting Provider: Hospitalist Reason For Exam: dementia, small bowel obstruction, preop eval 12/29/22 11:57 Consult to Cardiology Routine Consulting Provider: [facility] Cardi[facility] Services Reason for consultation: preop eval; cad, Has provider been notified: No 12/29/22 12:42 Consult for Sitter Routine Reason for consultation: pt safety Has provider been notified: No Discharging clinician: Amadeo Briscoe DS: Transfer Hospital Acceptance Reason for Transfer: Return to facility after admission for small bowel obstruction Name of Facility: [facility] DS: Diagnosis Discharge Diagnosis (1) Small bowel obstruction: Status: Acute DS: Summary Hospital Course Hospital Course: 87-year-old male patient presenting to the emergency department with a history of nausea and vomiting, abdominal distension. He has a known history of a right inguinal hernia and previous intestinal surgery for Crohn's disease. Patient has dementia and is unaware of any of his ongoing issues or past history. Patient underwent CT abdomen and pelvis upon presentation to the emergency department. This revealed dilated loops of small bowel with a right inguinal hernia with apparent obstruction due to the hernia. He was admitted to the surgical service for further management of the small-bowel obstruction. On examination the patient was found to have an easily reducible right inguinal hernia with no apparent tenderness. His abdomen was noted to be distended with tympany to percussion. He was made NPO and started on IV fluids. Consultation was obtained from the hospitalist service. Consultation was also obtained from Cardiology. A contrasted CT also seemed indicate obstruction at the level of the inguinal hernia. A small-bowel series however showed contrast completely passing into the colon without apparent obstruction. The patient subsequently had a large bowel movement and was started on a diet. A swallowing study indicated difficulty swallowing thin liquids. A modified diet with liquids thickened to a nectar consistency and chopped/advanced (NDD3 ) diet was recommended. He was started on liquids and advanced to a regular chopped diet over the next 24 hours. This was well tolerated without nausea, vomiting, or increased abdominal pain. Cardiology consultation was obtained in anticipation of possible surgery. He was felt to be at high risk for anesthesia. As his symptoms improved and is hernia was easily reducible no surgical intervention is recommended at this time. He will return to the [employer] today with follow-up in the office in approximately 2-3 weeks. Status at Discharge Cognitive/behavioral status at discharge: Patient with baseline dementia Overall status at discharge: patient is back to baseline Time Spent with Patient Time attestation: Total time managing care of this patient today ____ minutes. Discharge coordination time: Less than 30 minutes Quality: Safe Use of Opioids Does Pt have an Active Cancer Diagnosis on the Problem List?: No Quality: Stroke Does the patient have a stroke diagnosis?: No Physical Exam Vital Signs: Vital Signs: Last Vital Signs Temp 96.8 F 01/02/23 04:00 Pulse 83 01/02/23 04:00 Resp 16 01/02/23 04:00 BP 158/70 H 01/02/23 04:00 Pulse Ox 92 01/02/23 04:00 O2 Del Method Room Air 01/02/23 04:00 BMI result Body Mass Index 26.5 Const: General: comfortable and no acute distress Nutritional Appearance: well nourished Orientation/consciousness: patient oriented x3 Limitations: no limitations Resp: Effort & Inspection: normal respiratory effort, no audible wheezes, no cough and no respiratory distress GI: Inspection: Yes normal to inspection and Yes distended Palpation (GI): Soft to palpation, nontender, no guarding, not rigid and Hernia present direct inguinal on the right (Easily reducible with light pressure, no tenderness) Rectal Exam - Male: Yes deferred Skin: General skin exam: no rashes or lesions noted Neuro: General: patient oriented x3 Discharge Plan Discharge Anticipated Discharge Date/Time: 01/02/23 07:41 Patient Disposition: Xfer SNF Discharge Diagnosis: partial small-bowel obstruction, adhesions Referrals: Amadeo Briscoe MD [Physician] - 2 Weeks PhysicianCheikh [Primary Care Provider] - 1 Week Discharge Medications: Continued quetiapine [Seroquel] 25 mg Tablet 12.5 mg PO BEDTIME albuterol sulfate 2.5 mg /3 mL (0.083 %) Solution For Nebulization 2.5 mg INHALATION Q4H PRN (Reason: SOB) cyanocobalamin (vitamin B-12) 1,000 mcg Tablet 1,000 mcg PO DAILY ferrous sulfate 325 mg (65 mg iron) Tablet 325 mg PO BID alum-mag hydroxide-simeth 200-200-20 mg/5 mL Suspension 30 ml PO QID PRN (Reason: GI UPSET/HEARTBURN) Rx Instructions: administer between meals and at bedtime escitalopram oxalate [Lexapro] 5 mg Tablet 5 mg PO DAILY cholecalciferol (vitamin D3) 25 mcg (1,000 unit) Tablet 25 mcg PO DAILY loratadine 10 mg Capsule 10 mg PO DAILY carboxymethylcellulose sodium 1 % Drops 1 drp ophthalmic (eye) TID Discharge Orders: Discharge Order (Routine); Ordered 01/02/23 Ordered By: Amadeo Briscoe Diet: thick liq; chopped diet Activity on Discharge: As tolerated Stand Alone Forms: Patient Portal Discharge page Care Plan Goals: return to normal diet and activity Health Concerns: nausea, vomiting, abdominal distension Plan of Treatment: bowel rest, swallow study, modified diet with her thick liquids and advanced/chopped diet (NDD3 ) Assessment: partial small-bowel obstruction, resolved
[2023-01-02 07:20] VITALS: BP 158/65; PULSE 82; RESP 18; TEMP 36.6; O2SAT 93
--- NOTE | 2023-01-02 08:25 | MHC.CM.PN ---
Addendum entered by Renu Nash 01/02/23 10:27: KEREN CALLED [facility] [phone] AND SPOKE TO RN OUTREACH MANAGER, MIMI WHO REPORTED A DIFFERENT OUTREACH MANAGER WAS FOLLOWING THIS PTS RETURN. SHE PROVIDED A NUMBER FOR THAT RN OUTREACH MANAGER [phone]. CM CALLED THE NUMBER PROVIDED AND SPOKE TO DOUG, SHE REPORTS SHE HAS NOT YET REVIEWED THE DCS FAXED THIS MORNING, SHE ASKED ABOUT NEW MEDS AND WAS INFORMED THERE WERE NONE LISTED IN THE DC. SHE IS AWARE PT WILL TRANSPORT AT 1030 VIA [facility] CM ATTEMPTED TO CONTACT PTS HCP IVAN PIZANO AT ALL THREE NUMBERS SHE HAS LISTED. VM MESSAGES WERE LEFT AT [phone] AND [phone] INFORMING HER OF DC AND TIME THE LAST NUMBER [phone] WAS BUSY Original Note: PT CLEARED FOR DC, DCS AND RECENT PN'S FAXED TO [facility] [phone] CM NUMBER PROVIDED ON COVER SHEET ALONG WITH NOTIFICATION THAT TRANSPORT WILL BE ARRANGED FOR 1030 CM WILL FOLLOW UP VIA T/C
== END 2023-01-02 11:21 | disposition skilled nursing facility (03) | DRG 395 ==
LOC: HO.ED 16:06 → HO.EDOVER 19:40 → HO.S3 12-29 07:59
PROVIDERS: Emergency Medicine Emergency Medical Services; Physician Assistant Medical; Admitting Provider Surgery; Emergency Provider Emergency Medicine; PCP Nurse Practitioner; Visit Provider Surgery
DX: K40.31 Unilateral inguinal hernia, with obstruction, without gangrene, recurrent (principal); N18.30 Chronic kidney disease, stage 3 unspecified; D63.1 Anemia in chronic kidney disease; F39 Unspecified mood [affective] disorder; I35.0 Nonrheumatic aortic (valve) stenosis; D50.9 Iron deficiency anemia, unspecified; J30.9 Allergic rhinitis, unspecified; I25.10 Atherosclerotic heart disease of native coronary artery without angina pectoris; F03.90 Unspecified dementia, unspecified severity, without behavioral disturbance, psychotic disturbance, mood disturbance, and anxiety; Z87.820 Personal history of traumatic brain injury; Z79.899 Other long term (current) drug therapy
CPT/HCPCS: 36415; 70450; 72125; 74018; 74176; 74250; 80048; 80053; 82803; 83735; 85025; 85027; 85610; 85730; 92610; 93005; 93306; 94640; 99285; J2060; J2405; Q9957

== ENCOUNTER → 2022-12-28 09:29 | Outpatient (BNV) | payer OTHER, SELFPAY | PROVIDERS: Emergency Provider Emergency Medicine; Visit Provider Surgery | DX: K56.609 Unspecified intestinal obstruction, unspecified as to partial versus complete obstruction (principal) | CPT/HCPCS: 99222; 99231; 99232; 99238 ==

== ENCOUNTER 2022-12-28 19:32 | Outpatient (BNV) | payer OTHER, MEDICARE, SELFPAY | END 2022-12-29 10:00 | PROVIDERS: Admitting Provider Surgery; Emergency Provider Emergency Medicine; Visit Provider Radiology Diagnostic Radiology | DX: K56.609 Unspecified intestinal obstruction, unspecified as to partial versus complete obstruction (principal) | CPT/HCPCS: 74250 ==

== ENCOUNTER 2022-12-28 19:32 | Outpatient (BNV) | payer OTHER, MEDICARE, SELFPAY | END 2022-12-29 07:00 | PROVIDERS: Admitting Provider Surgery; Emergency Provider Emergency Medicine; Visit Provider Internal Medicine | DX: I35.0 Nonrheumatic aortic (valve) stenosis (principal); I34.81 Nonrheumatic mitral (valve) annulus calcification | CPT/HCPCS: 93306 ==

== ENCOUNTER → 2022-12-28 19:32 | Outpatient (BNV) | payer OTHER, MEDICARE, SELFPAY | PROVIDERS: Admitting Provider Surgery; Emergency Provider Emergency Medicine; Visit Provider Physician Assistant Medical | DX: F03.90 Unspecified dementia, unspecified severity, without behavioral disturbance, psychotic disturbance, mood disturbance, and anxiety (principal); I35.0 Nonrheumatic aortic (valve) stenosis | CPT/HCPCS: 99222; 99232; 99499 ==

== ENCOUNTER → 2022-12-28 19:32 | Outpatient (BNV) | payer OTHER, SELFPAY | PROVIDERS: Admitting Provider Surgery; Emergency Provider Emergency Medicine; Visit Provider Internal Medicine | DX: Z01.810 Encounter for preprocedural cardiovascular examination (principal); K56.609 Unspecified intestinal obstruction, unspecified as to partial versus complete obstruction; I35.0 Nonrheumatic aortic (valve) stenosis; F03.90 Unspecified dementia, unspecified severity, without behavioral disturbance, psychotic disturbance, mood disturbance, and anxiety | CPT/HCPCS: 99223 ==

== ENCOUNTER 2023-01-19 09:10 | Outpatient (AMB) | payer MEDICARE, SELFPAY ==
--- NOTE | 2023-01-19 09:16 | MHC.OFFVIS ---
Intake Vital Signs 01/19/23 09:34 Height 5 ft 7 in Weight 176 lb 5.917 oz BMI 27.6 BP 130/65 Blood Pressure Location Lt brachial Position Sitting Pulse 82 Intake Visit Reasons: SBO with [facility] Inpt follow up Intake Note: Patient is seen in office for evaluation and treatment of small bowel obstruction & right inguinal hernia. Patient c/o: denies any concerns at the time of visit, denies constipation, nausea, vomit, diarrhea Store Sales Manager Required: No Accompanied by: other Allergies No Known Allergies Allergy (Verified 03/02/22 00:18) Medication List - Last Reconciled 01/19/23 by Amadeo Briscoe MD acetaminophen 650 mg PO Q4H PRN albuterol sulfate 2.5 mg inhalation Q4H PRN alum-mag hydroxide-simeth 200-200-20 mg/5 mL 30 mL PO QID PRN bisacodyl 10 mg PO BEDTIME carboxymethylcellulose sodium 1% 1 drp ophthalmic (eye) TID cholecalciferol (vitamin D3) 25 mcg PO DAILY cyanocobalamin (vitamin B-12) 1,000 mcg PO DAILY escitalopram oxalate (Lexapro) 5 mg PO DAILY ferrous sulfate 325 mg PO BID loperamide 2 mg PO TID PRN loratadine 10 mg PO DAILY magnesium hydroxide mg PO quetiapine (Seroquel) 12.5 mg PO BEDTIME sodium phosphates 19-7 gram/118 mL (Fleet Enema) 118 mL ID DAILY PRN HPI HPI Comments History of Present Illness Details 87-year-old male patient resident of the [facility] presenting for a follow-up visit after recent hospitalization for small-bowel obstruction. He was noted to have a large right inguinal hernia which is been present for many years. CT abdomen and pelvis indicated a bowel obstruction related to this hernia however the hernia was easily reducible and a subsequent upper GI study with small bowel follow-through revealed prompt transit through the hernia into the colon. He was subsequently placed on at modified diet and tolerated this well. Since his discharge he has felt well with no further nausea or vomiting. He has had regular bowel movements as well. He denies abdominal pain or distension. ON LICENSE OF [facility] Medical History Reducible right inguinal hernia Small bowel obstruction Dementia Social History Household Members: Other Household Members Other:: [facility] [place] Housing: [facility] Unable to assess alcohol history related to: Unknown Patient Tobacco Use Status: Tobacco use Unknown Advance Directives Date on File: 03/03/22 service: Yes Physical Exam Const General: cooperative Nutritional Appearance: well nourished Limitations: wheelchair Resp Effort & Inspection: normal respiratory effort, no audible wheezes, no cough and no respiratory distress GI Inspection: Yes normal to inspection and Yes obesity Palpation (GI): Soft to palpation, nontender, no guarding and not rigid Percussion: Yes normal to percussion Auscultation: normal bowel sounds Skin Other: Warm, dry, no rash Assessment & Plan Assessment & Plan (1) Inguinal hernia: Code(s): K40.90 - Unilateral inguinal hernia, without obstruction or gangrene, not specified as recurrent Qualifiers: Obstruction and gangrene presence: without obstruction or gangrene Laterality: unilateral Recurrence: non-recurrent Qualified Code(s): K40.90 - Unilateral inguinal hernia, without obstruction or gangrene, not specified as recurrent (2) Small bowel obstruction: Code(s): K56.609 - Unspecified intestinal obstruction, unspecified as to partial versus complete obstruction Plan 87-year-old male patient returning following recent admission for possible small-bowel obstruction due to a right inguinal hernia. His symptoms subsequently resolved and he is now much improved without the need for surgery. Since his discharge he has done well without nausea or vomiting. His bowels have been regular. He should follow up as needed. Coding Level of Care Code Est Pt Level 3 (16365) Diagnoses Non-recurrent unilateral inguinal hernia without obstruction or gangrene K40.90 Obstruction and gangrene presence: without obstruction or gangrene Laterality: unilateral Recurrence: non-recurrent Small bowel obstruction K56.609
[2023-01-19 09:34] VITALS: BP 130/65; PULSE 82; BMI 27.6
== END 2023-01-19 09:42 | disposition home or self-care (01) ==
PROVIDERS: PCP Nurse Practitioner; Visit Provider Surgery
DX: K40.90 Unilateral inguinal hernia, without obstruction or gangrene, not specified as recurrent (principal); K56.609 Unspecified intestinal obstruction, unspecified as to partial versus complete obstruction
CPT/HCPCS: 99213

== ENCOUNTER → 2023-01-19 09:10 | Outpatient (BNVA) | payer MEDICARE, SELFPAY | PROVIDERS: PCP Nurse Practitioner; Visit Provider Surgery | DX: K40.90 Unilateral inguinal hernia, without obstruction or gangrene, not specified as recurrent (principal); K56.609 Unspecified intestinal obstruction, unspecified as to partial versus complete obstruction | CPT/HCPCS: 99212 ==

== ENCOUNTER 2023-01-24 05:02 | Outpatient (REF) | payer MEDICARE, SELFPAY ==
[2023-01-24 07:21] LABS: PSA,Total (Free>4and<10) 12.91 ng/mL (0.00-4.00)
== END 2023-01-24 05:03 | disposition home or self-care (01) ==
LOC: HO.HSH3W 05:02
PROVIDERS: Visit Provider Nurse Practitioner
DX: Z85.46 Personal history of malignant neoplasm of prostate (principal); Z12.5 Encounter for screening for malignant neoplasm of prostate
CPT/HCPCS: 36415; 84153

== ENCOUNTER 2023-03-02 07:41 | Inpatient (IN) | payer MEDICARE, SELFPAY ==
[2023-03-02] VITALS (8 sets, daily range): BP systolic 101–146; BP diastolic 63–84; PULSE 77–114; RESP 17–20; TEMP 36.1–36.8; O2SAT 93–99; BMI 26.2
--- NOTE | ~2023-03-02 | CT_ITS ---
Examination: CT GI bleed abdominal pelvis without and with IV contrast. Clinical indications: GI bleeding. COMPARISON: CT abdomen and pelvis without IV contrast 12/28/2022. TECHNIQUE: 5 mm thin axial and reformatted 2 mm thin sagittal and coronal images of abdomen and pelvis were obtained without and with IV 80 mL Omnipaque 350. 2 min delayed images were obtained of abdomen and pelvis. DLP [id number]. This CT examination was performed using dose optimization technique as appropriate, variously including the following: Automated exposure control Adjustment of MA and/or KV according to patient size(this includes techniques or standardized protocols for targeted exams where dose is matched to indication/reason for exam; extremities or head. Use of iterative reconstruction techniques. FINDINGS: LUNGS: There is bilateral posterior pleural thickening and right lower lobe atelectasis/infiltrate. Heart size is normal. There is moderate coronary artery calcifications as well as aortic and mitral valve calcifications. Liver, ducts and gallbladder: The liver is normal size, contour and density. Postcontrast there is no abnormal enhancement or focal lesion. There is no intrahepatic ductal dilatation. Solitary radiopaque gallstone is noted. There is no wall thickening. Spleen: Unremarkable. Pancreas: Unremarkable. Adrenal glands: Unremarkable. Kidneys and ureter: Bilateral kidney nephrograms are symmetrical with mild cortical thinning appropriate for patient's age. There is a nonenhancing midpole 3 cm simple cyst left kidney. A partially exophytic 8 mm cyst is seen in midpole right kidney. No radiopaque renal calculi or hydronephrosis seen. There is mild bilateral perinephric stranding Lymphovascular structures: The abdominal aorta is of normal caliber. Mild to sclerotic calcification. Both common iliac arteries are widely patent and normal caliber. Origins of celiac, superior concentric and inferior mesenteric arteries are widely patent. There are solitary renal arteries bilaterally. GI tract: There is scattered gas and fluid seen throughout the colon without major disc distention. The proximal small bowel loops are prominent with air-fluid levels. There is no free air or free fluid. There is submucosal fatty deposits in distal ileal loops, a nonspecific finding. On postcontrast and delayed images there is no contrast extravasation or at higher attenuation of fluid within the GI tract to suspect any site of GI bleed. There is no free air or free fluid. There is a right inguinal hernia. Abdominal wall: There is a right inguinal hernia containing a loop of small bowel with proximal small bowel obstruction predominantly involving the duodenal and jejunal loops. Pelvis: The bladder is nondistended. There is minimal stool in the rectum and sigmoid colon. Osseous structures: No aggressive lytic or sclerotic process seen. CT/CT gi bleed abd pel wo/w IVcon IMPRESSION: 1. No evidence of contrast extravasation or higher attenuation of fluid within the GI tract to suspect any site of GI bleed. 2. There is a right inguinal hernia containing a loop of small bowel with proximal small bowel obstruction. The proximal small bowel obstruction may be cause for generalized colonic ileus 3. Bilateral renal cysts. 4. Cholelithiasis without wall thickening
--- NOTE | 2023-03-02 08:03 | ED.GENADULT ---
HPI - General Adult General Chief complaint: General Medical Stated complaint: ABD PAIN H/O HERNIA,NO BM, FROM SNF PER EMS Time Seen by Provider: 03/02/23 07:51 Source: patient and EMS Mode of arrival: EMS Limitations: other (History of dementia) History of Present Illness HPI narrative: This is an 87-year-old male history of dementia, nonrheumatic aortic valve stenosis, umbilical hernia, small-bowel obstructions, presenting to the emergency department via ambulance for vomiting, unclear when the vomiting started nursing facility where he came from was unclear about this and told EMS asked patient however patient tells me I do not know he is coughing up what appears to be stool or coffee-ground emesis. When I asked patient how he is doing he says okay and has no medical complaints at this time however slightly confused. Not on blood thinners based off of med list provided by long-term facility Related Data Home Medications Medication Instructions Recorded Confirmed albuterol sulfate 2.5 mg/3 mL 2.5 mg inhalation Q4H PRN SOB 12/28/22 03/02/23 (0.083 %) solution for nebulization aluminum-mag hydroxide-simethicone 30 ml PO QID PRN GI UPSET/HEARTBURN 12/28/22 03/02/23 200 mg-200 mg-20 mg/5 mL oral susp carboxymethylcellulose sodium 1 % 2 drp ophthalmic (eye) TID 12/28/22 03/02/23 eye drops cholecalciferol (vitamin D3) 25 25 mcg PO DAILY 12/28/22 03/02/23 mcg (1,000 unit) tablet escitalopram oxalate 5 mg tablet 5 mg PO DAILY 12/28/22 03/02/23 (Lexapro) ferrous sulfate 325 mg (65 mg 325 mg PO BID 12/28/22 03/02/23 iron) tablet loratadine 10 mg capsule 10 mg PO DAILY 12/28/22 03/02/23 quetiapine 25 mg tablet (Seroquel) 12.5 mg PO BEDTIME 12/28/22 03/02/23 acetaminophen 325 mg capsule 650 mg PO Q4H PRN pain or fever 01/19/23 03/02/23 bisacodyl 5 mg tablet 10 mg PO BEDTIME 01/19/23 03/02/23 loperamide 2 mg tablet 2 mg PO TID PRN Diarrhea 01/19/23 03/02/23 sodium phosphates 19 gram-7 118 ml NC DAILY PRN Constipation 01/19/23 03/02/23 gram/118 mL enema (Fleet Enema) cyanocobalamin (vitamin B-12) 500 500 mcg PO DAILY 03/02/23 03/02/23 mcg tablet guaifenesin 100 mg/5 mL oral liquid 200 mg PO Q4H PRN Cough 03/02/23 03/02/23 magnesium hydroxide 400 mg/5 mL 30 ml PO BEDTIME PRN Constipation 03/02/23 03/02/23 oral suspension sodium chloride 0.65 % nasal spray 2 spray intranasal Q4H PRN dryness 03/02/23 03/02/23 aerosol Allergies Allergy/AdvReac Type Severity Reaction Status Date / Time No Known Allergies Allergy Verified 03/02/22 00:18 Review of Systems Review of Systems: Constitutional : No Weight loss, No Fever, No Chills, No Fatigue, No Malaise ENT/Mouth : No sore throat, No Rhinorrhea Eyes: No Eye Pain, No Swelling, No Redness Cardiovascular : No Chest Pain, No SOB, No Dyspnea on Exertion, No Orthopnea, No Edema, No Palpitations Respiratory : No Cough, No Sputum, No Wheezing Gastrointestinal : No Nausea, + Vomiting, No Diarrhea, No Constipation, No abdominal Pain, No Hematochezia, No Melena Genitourinary : No Dysuria, No Urinary Frequency, No Hematuria, Musculoskeletal : No joint pain, No Myalgias, No Joint Swelling Skin : No Skin Lesions, No rash Neuro : No Weakness, No Numbness, No Dizziness, No Headache Psych : No Anxiety/Panic, No Depression All other systems reviewed and are negative Yes all other systems are reviewed and are negative [facility] Past Medical History Attestation statement: The following information was validated with the patient. Source: old records reviewed and nursing notes reviewed Medical History Reducible right inguinal hernia Small bowel obstruction Dementia Social History Social History Household Members: Other Household Members Other:: From [facility] Housing: Long-Term Unable to assess alcohol history related to: Unknown Alcohol intake: former Patient Tobacco Use Status: Tobacco use Unknown Smoked in Last 30 Days: No Use of substances other than those prescribed or required for medical reasons: No Advance Directives: Yes Advance Directives on File: Yes Advance Directives Date on File: 03/03/22 service: Yes Physical Exam ED Vital Signs: Vital Signs - 24 hr 03/02/23 07:56 03/02/23 08:11 03/02/23 12:00 Temperature 98.2 F Pulse Rate 100 93 82 Respiratory Rate 20 20 20 Blood Pressure 122/76 141/64 H Pulse Oximetry 93 96 Oxygen Delivery Method Room Air Room Air 03/02/23 14:00 Temperature Pulse Rate 77 Respiratory Rate 20 Blood Pressure 126/63 Pulse Oximetry Oxygen Delivery Method BMI result Body Mass Index 26.2 Vital signs stable Appearance: Alert.? Oriented to person and place not time or situation? No acute distress.? Head: Normocephalic, atraumatic, no step-offs or deformities Eyes: Pupils equal, round and reactive to light.? Neck: Normal inspection.? Neck supple.? CVS: Normal heart rate and rhythm.? Pulses normal.? Respiratory: No respiratory distress.? Breath sounds normal.? Abdomen: Soft and nontender.? Skin: Skin warm and dry.? Normal skin color.? Normal skin turgor.? Extremities: No lower extremity edema.? No calf ttp. Global weakness Neuro: Oriented to person and place not time or situation?.? No motor deficit.? No sensory deficit. CN 2-12 intact Course Reevaluation(s) Reevaluation #1: CBC with elevated white blood cell count and left shift this could be secondary to reactivity and nausea and vomiting. YEYO likely secondary to poor p.o. intake/dehydration. INR within normal range Time: 09:00 Reevaluation #2: Delay in radiology read Time: 11:00 Reevaluation #3: Reached out to [facility] to see status of read. Still no read. No further episodes of nausea and vomiting. Hemodynamically stable. Will continue to monitor. Time: 13:37 Additional Reevaluation(s): 1540 CT abdomen pelvis with no evidence of contrast extravasation or higher 10 UA moore of fluid within the GI tract to suspect any site GI bleed there is a right inguinal hernia containing a loop of small bowel proximal small-bowel obstruction. The proximal small-bowel obstruction may be cause for colonic ileus. Bilateral renal cyst. Cholelithiasis without wall thickening peer Patient was evaluated by general surgeon who will likely take patient to the OR tomorrow, recommended NG tube. I also discussed this case with medicine for admission who agrees. Dr. Contreras Medications Administered Discontinued Medications Generic Name Dose Route Start Last Admin Trade Name Liz PRN Reason Stop Dose Admin Sodium Chloride 1,000 mls @ 999 mls/hr 03/02/23 08:00 03/02/23 10:14 Ns IV 03/02/23 09:00 Infused .Q1H1M SRAVANTHI Infusion Iohexol 100 ml 03/02/23 09:25 03/02/23 09:26 Iohexol 350 Mg/Ml 100 Ml Infus..Btl IV 03/02/23 09:26 85 ml ONCE ONE Administration Iohexol 85 ml 03/02/23 09:57 03/02/23 09:59 Iohexol 350 Mg/Ml 150 Ml Infus..Btl IV 03/02/23 09:58 85 ml ONCE ONE Administration Medical Decision Making Medical Decision Making [facility] Narrative: 87-year-old male presents for complaints of vomiting unclear when it started coming from long-term facility. Poor historian history of dementia Physical exam with distended abdomen, hypoactive bowel sounds History and physical exam concerning for obstruction, fistula vs upper gi bleed. I do not suspect acute abdomen, mesenteric ischemia. Will rule out electrolyte abnormalities and anemia Plan labs, imaging, type and screen Differential Diagnosis Differential Diagnoses: The differential diagnosis associated with the presentation includes History and physical exam concerning for obstruction, fistula vs upper gi bleed. I do not suspect acute abdomen, mesenteric ischemia. Will rule out electrolyte abnormalities and anemia Admission/Observation Consideration of admission/observation: Escalation of care including admission/observation considered Consult Healthcare Provider Management of the patient was discussed with: Field Operations Supervisor (General surgery) Lab Data [facility] Lab Attestation statement: I reviewed the patient's lab results. 03/02/23 08:11 03/02/23 08:11 Labs: Lab Results 03/02/23 03/02/23 03/02/23 Range/Units 08:11 08:18 08:18 WBC 13.8 H (4.8-10.8) X10*3/uL RBC 3.96 L D (4.60-5.80) X10*6/uL Hgb 12.4 L D (14.0-18.0) g/dl Hct 38.1 L D (42.0-52.0) % MCV 96.2 (80.0-98.0) fL MCH 31.3 (27.0-33.0) pg MCHC 32.5 (31.0-36.0) g/dl RDW 13.5 (11.0-16.0) % Plt Count 492 H D (160-400) X10*3/uL MPV 10.3 (9.4-12.4) fL Immature Gran % (Auto) 1.0 H (0.0-0.4) % Neut % (Auto) 84.1 H (45-73) % Lymph % (Auto) 6.9 L (20-40) % Montgomery % (Auto) 5.3 (2-11) % Eos % (Auto) 2.3 (0-4) % Baso % (Auto) 0.4 (0-2) % Lymph # (Auto) 1.0 L (1.2-4.9) X10*3/uL Montgomery # (Auto) 0.7 (0.1-1.2) X10*3/uL Eos # (Auto) 0.3 (0.0-0.4) X10*3/uL Baso # (Auto) 0.1 (0.0-0.2) X10*3/uL Abs Immat Gran (auto) 0.14 H (0.00-0.03) X10*3/uL Absolute Neuts (auto) 11.6 H (2.0-8.3) x10*3/uL Absolute Nucleated RBC 0.000 (0.0-0.012) X10*3/uL Nucleated RBC % (auto) 0.0 (0.0-0.2) /100WBC PT 13.8 H (11.1-13.3) SEC INR 1.1 (0.9-1.1) Sodium 140 (135-145) mmol/L Potassium 4.9 D (3.3-5.1) mmol/L Chloride 105 (96-108) mmol/L Carbon Dioxide 24 (22-29) mmol/L Anion Gap 16 (12-20) BUN 26 H (9-16) mg/dL Creatinine 1.53 H (0.5-1.4) mg/dL Estim Creat Clear Calc 32.9 Estimated GFR 43 Random Glucose 153 H (60-115) mg/dL Calcium 9.1 D (8.4-10.2) mg/dL Magnesium 1.9 (1.6-2.6) mg/dL Total Bilirubin 0.2 (0.0-1.0) mg/dL AST 15 (5-37) U/L ALT 8 (0-40) U/L Alkaline Phosphatase 77 (39-117) U/L Total Protein 7.8 (6.5-8.0) g/dL Albumin 3.6 (3.5-5.0) g/dL Blood Type O Negative Antibody Screen POSITIVE Antibody Identification Inconclusive Anti-S Antigen Identification S Antigen - NEGATIVE Crossmatch See Detail Crossmatch (AHG) See Detail Independent Interpretation I performed an independent interpretation of an: CT Scan (CT/CT gi bleed abd pel wo/w IVcon IMPRESSION: 1. No evidence of contrast extravasation or higher attenuation of fluid within the GI tract to suspect any site of GI bleed. 2. There is a right inguinal hernia containing a loop of small bowel with proximal small bowel obstruction. The proximal small ) Radiology Impression Discussion of test interpretation with radiology: I have reviewed the radiologist's reading. Chronic Conditions Patient?s care impacted by: Other (Dementia, nonrheumatic aortic stenosis) Social Determinants Patient?s care significantly limited by Social Determinants of Health including: Other Social Determinant of Health Critical Care Time Critical Care Time Critical Care Time: Yes Total Critical Care Time: 45 Attestation: I attest to this time spent taking care of the patient, obtaining history, physical, reviewing labs, imaging, speaking to my attending, speaking to specialist. Discharge Plan Discharge Clinical Impression: Ileus, SBO (small bowel obstruction) Patient Disposition: Admitted As Inpatient
[2023-03-02] MEDS: 0.9 % Sodium Chloride 1,000 ML 999 ML IV (08:11)
--- NOTE | 2023-03-02 08:12 | PC.NURSE ---
Patient arrived from [facility] via ems. per ems staff reports dark brown vomit multiple times this am. 20 placed in left Ac. Patient alert with confusion, pale, denies pain or discomfort.
[2023-03-02 08:14] LABS: MANUAL DIFF FLAG NO
[2023-03-02 08:17] LABS: Basophils Absolute Auto 0.1 X10*3/uL (0.0-0.2); Basophils Percent Auto 0.4 % (0-2); Eosinophils Absolute Auto 0.3 X10*3/uL (0.0-0.4); Eosinophils Percent Auto 2.3 % (0-4); Hematocrit 38.1 % (42.0-52.0); Hemoglobin 12.4 g/dl (14.0-18.0); Imm Gran Abs Auto 0.14 X10*3/uL (0.00-0.03); Lymphocytes Percent Auto 6.9 % (20-40); Mean Corpuscular HGB Conc 32.5 g/dl (31.0-36.0); Mean Corpuscular Hemoglobin 31.3 pg (27.0-33.0); Mean Corpuscular Volume 96.2 fL (80.0-98.0); Mean Platelet Volume 10.3 fL (9.4-12.4); Monocytes Absolute Auto 0.7 X10*3/uL (0.1-1.2); Monocytes Percent Auto 5.3 % (2-11); Neutrophils Absolute Auto 11.6 x10*3/uL (2.0-8.3); Neutrophils Percent Auto 84.1 % (45-73); Platelet Count 492 X10*3/uL (160-400); Red Blood Count 3.96 X10*6/uL (4.60-5.80); Red Cell Distribution Width 13.5 % (11.0-16.0); White Blood Count 13.8 X10*3/uL (4.8-10.8)
--- OUTSIDE RECORDS SUMMARY | 2023-03-02 08:18 | XMS_ITS | Continuity of Care Document ---
Author Name Unknown Organization [facility] ter Address [address] [place] [phone]- Care Team Providers Care Pulley Worker Name Role Phone Keyon Molina MD Primary Care Physician [id number] Date(s): 10/28/20 - 10/28/[address] [address]- Discharge Disposition: A-D/C Home Attending Physician: Larry Ortiz MD Admitting Physician: Larry Ortiz MD Referring Physician: Not on Staff, Referring MD Allergies, Adverse Reactions, Alerts Substance Reaction Severity Status NKA Active Immunizations Given and Recorded Vaccine Date Status Refusal Reason tetanus/diphtheria/pertussis, acel(Tdap) 10/28/20 Given Medications Bisacodyl Supp 1 supp = 10 mg, Rectally, Daily, PRN as needed for constipation, For no BM in 3 days or 9 shifts and soft stool in rectum., 0 Refills, Maintenance, 10/28/20 17:48:00 EDT, Suppository, Partial fill upon patient request if the prescription is for a sche... Start Date: 10/28/20 Status: Ordered carboxymethylcellulose 2 drops, Eyes, Both, 3 times a day, 0 Refills, Maintenance, 10/28/20 17:38:00 EDT, Partial fill upon patient request if the prescription is for a schedule II opioid drug. Start Date: 10/28/20 Status: Ordered cholecalciferol 1000 intl units oral tablet 1 tablet = 25 mcg, By Mouth, Daily, # 30 tablet, 0 Refills, Maintenance, 10/28/20 17:39:00 EDT, Tablet, Partial fill upon patient request if the prescription is for a schedule II opioid drug. Start Date: 10/28/20 Status: Ordered donepezil 10 mg oral tablet 10 mg, 1, tablet, By Mouth, Daily at bedtime, # 90 tablet, Refills 0, Maintenance, 10/28/20 17:42:00 EDT, Partial fill upon patient request if the prescription is for a schedule II opioid drug. Start Date: 10/28/20 Status: Ordered escitalopram 5 mg oral tablet 1 tablet = 5 mg, By Mouth, Daily, # 30 tablet, 0 Refills, Maintenance, 10/28/20 17:43:00 EDT, Tablet, Partial fill upon patient request if the prescription is for a schedule II opioid drug. Start Date: 10/28/20 Status: Ordered Fleet Enema 19 gm-7 gm rectal enema 1 each, Rectally, Daily, PRN for constipation, For no BM in 3 days or 9 shifts and hard stool in rectum., # 133 mL, 0 Refills, Maintenance, 10/28/20 17:48:00 EDT, Enema, Partial fill upon patient request if the prescription is for a schedule II opioid... Start Date: 10/28/20 Status: Ordered furosemide 20 mg oral tablet 20 mg, 1, tablet, By Mouth, Daily, # 30 tablet, Refills 0, Maintenance, 10/28/20 17:43:00 EDT, Partial fill upon patient request if the prescription is for a schedule II opioid drug. Start Date: 10/28/20 Status: Ordered Forreston Mentho-Lyptus Drops 1 each, By Mouth, Every 2 hours, PRN Sore Throat, 0 Refills, Maintenance, 10/28/20 17:49:00 EDT, Partial fill upon patient request if the prescription is for a schedule II opioid drug. Start Date: 10/28/20 Status: Ordered hydrOXYzine hydrochloride 25 mg oral tablet 1 tablet = 25 mg, By Mouth, 3 times a day, PRN Rash, # 30 tablet, 0 Refills, Maintenance, 10/28/20 17:50:00 EDT, Tablet, Partial fill upon patient request if the prescription is for a schedule II opioid drug. Start Date: 10/28/20 Status: Ordered loperamide 2 mg oral tablet 1 tablet = 2 mg, By Mouth, 3 times a day, PRN as needed for loose stool, not to exceed 16 mg/day, #24 tablet, 0 Refills, Maintenance, 10/28/20 17:50:00 EDT, Tablet, Partial fill upon patient requestif the prescription is for a schedule II opioid drug. Start Date: 10/28/20 Status: Ordered loratadine 10 mg oral tablet 10 mg, 1, tablet, By Mouth, Daily, # 30 tablet, Refills 0, Maintenance, 10/28/20 17:47:00 EDT, Partial fill upon patient request if the prescription is for a schedule II opioid drug. Start Date: 10/28/20 Status: Ordered magnesium hydroxide 8% oral suspension 30 mL = 2.4 Gm, By Mouth, Daily at bedtime, PRN for constipation, For no BM in 3 days or 9 shifts and no stool in rectum., # 300 mL, 0 Refills, Maintenance, 10/28/20 17:51:00 EDT, Suspension, Partialfill upon patient request if the prescription is fo... Start Date: 10/28/20 Status: Ordered memantine 5 mg oral tablet 1 tablet = 5 mg, By Mouth, 2 times a day, # 30 tablet, 0 Refills, Maintenance, 10/28/20 17:43:00 EDT, Tablet, Partial fill upon patient request if the prescription is for a schedule II opioid drug. Start Date: 10/28/20 Status: Ordered Multivitamin 1 tablet, By Mouth, Daily, 0 Refills, Maintenance, 10/28/20 17:46:00 EDT, Partial fill upon patientrequest if the prescription is for a schedule II opioid drug. Start Date: 10/28/20 Status: Ordered Tylenol Tablet 650 mg, By Mouth, Every 4 hours, PRN, Refills 0, Tot. Refills 0, as needed for pain, 01/05/05 18:44:09 EDT Start Date: 01/05/05 Status: Ordered Vitamin B12 1000 mcg oral tablet 1 tablet = 1,000 mcg, By Mouth, Daily, # 30 tablet, 0 Refills, Maintenance, 10/28/20 17:46:00 EDT, Tablet, Partial fill upon patient request if the prescription is for a schedule II opioid drug. Start Date: 10/28/20 Status: Ordered Results Radiology Reports * Exam Date Time Procedure Performing Provider Status 10/28/20 1:01 PM Chest 2 Views Frontal and Lat Rhett Rivera; Auth (Verified) Notes: (Chest 2 Views Frontal and Lat) Reason For Exam: chest pain;Other: RESULT: Chest 2 Views Frontal and Lat Chest 2 Views Frontal and Lat Reason: Chest pain. COMPARISON: 07/21/2014 FINDINGS: LINES AND TUBES: None. LUNGS AND PLEURA: Bandlike scarring in the right lung base. Otherwise no consolidation, pleural effusion or pneumothorax. HEART, MEDIASTINUM AND LACIE: Heart is normal in size. Aorta is tortuous and partially calcified. BONES AND SOFT TISSUES: No acute abnormality. IMPRESSION: No acute abnormality. WSN: [id number] Ordering Physician: Larry Ortiz Dictated By: Armando Guzman MD Dictated Date/Time: 10/28/20 1:27 pm Reviewed By: Armando Guzman MD Signed By: Armando Guzman MD Signed Date/Time: 10/28/20 1:27 pm Transcribed By: ELIZA Transcribed Date/Time: 10/28/20 1:25 pm Vital Signs Most recent to oldest [Reference Range]: 1 2 3 Oxygen Saturation [94-100 %] 98 % (10/28/20 7:56 PM) 97 % (10/28/20 5:49 PM) 99 % (10/28/20 12:29 PM) Pulse Rate [55-90 bpm] 79 bpm (10/28/20 7:56 PM) 75 bpm (10/28/20 5:49 PM) 98 bpm *H* (10/28/20 12:29 PM) Blood Pressure [90-138/55-84 mm Hg] 159/63mm Hg *H* (10/28/20 7:56 PM) 119/48mm Hg (10/28/20 5:49 PM) 100/58mm Hg (10/28/20 12:29 PM) Respiratory Rate [16-30 br/min] 18 br/min (10/28/20 7:56 PM) 18 br/min (10/28/20 5:49 PM) 22 br/min (10/28/20 12:29 PM) Temperature [96.8-100.4 DegF] 98.1 DegF (10/28/20 7:56 PM) 98.2 DegF (10/28/20 12:29 PM) Mode of Delivery (Oxygen) Room air (10/28/20 7:56 PM) Room air (10/28/20 5:49 PM) Room air (10/28/20 12:29 PM) Blood pressure sites Arm, left (10/28/20 12:29 PM) Temperature Route Oral (10/28/20 7:56 PM) Oral (10/28/20 12:29 PM) Social History Social History Type Response Smoking Status Former smoker; Tobac co user in household: No; Type: Cigarettes entered on: 07/21/14 Sex
--- OUTSIDE RECORDS SUMMARY | 2023-03-02 08:18 | XMS_ITS | Patient Health Record ---
Author Name Unknown [facility] Address [address] [place] [address] Care Team Providers Care Farm [employer] Name Role Phone Keyon Serrano Primary Care Provider Palmer Mckeon Unavailable [phone] ALLERGIES No Known Allergies REASON FOR REFERRAL No Information MEDICATIONS Medication SIG (Take, Route, Frequency, Duration) Notes Start Date End Date Status Enema - as directed Rectal A ctive Escitalopram Oxalate 5 MG 1 tablet Orall y Once a day for 30 day(s) Active Donepezil HCl 10 MG 1 tablet at bedtime Orally Once a day for 30 day(s) Active Diphenhydramine 1 tab Oral as needed Active Ciclopirox Olamine 0.77 % 1 application to affected area Externally to feet Twice a day for 30 days Active Carboxymethylcellulose Sodiu m 1 % as directed Ophthalmic Active Iron 325 (65 Fe) MG 1 tablet Orally Twice a day for 30 day(s) Not-Taking hydroCHLOROthiazide 25 MG 1 tablet Orall y Once a day for 30 day(s) Not-Taking Citalopram Hydrobromide 20 MG 1 tablet O rally Once a day for 30 day(s) Not-Taking hydrOXYzine HCl 25 MG Orally Active [place] Cough Drops Ac tive Furosemide 20mg Acti ve Ferrous Sulfate Acti ve Ondansetron Active Simvastatin 20 MG Orally No t-Taking Loratadine Active Sodium Chloride Acti ve Docusate Sodium Acti ve Menthol Active Magnesium Hydroxide 400 MG/5ML Orally Active Memantine HCl 5 MG Orally Twice a day Active Multivitamins as directed Orally once a day Active Loperamide HCl 2 MG Orally three times a day Active Calcium Carbonate Ac tive Bisacodyl 10 MG Rectal as needed Active Aricept Active LamISIL AT 1 % 1 application to affected area Externally Twice a day to affected areas on feet for 30 days 10/13/2014 Not-Taking Acetaminophen 325 MG Orally as needed Active Tolnaftate spray Not-Takin g Vitamin B-12 Active Tamiflu Not-Taking IMMUNIZATIONS Vaccine Route Administration Date Status Comme nts COVID-19 Pfizer BioNTech Vaccine Unknown 11/25/[address] 03/16/2021 Influenza Unknown 11/25/2020 Administered Influenza Unknown 12/16/2020 Administered SOCIAL HISTORY Tobacco Use: Social History Observation Description Date Details (start date - stop date) Former Smoker NA - NA Sex Assigned At : Social History Observation Description Sex Assigned At Unknown Tobacco Use/Smoking Question Answer Notes Are you a: former smoker Additional Findings: Tobacco Non-User Current no n-smoker Alcohol Screen Question Answer Notes Did you have a drink containing alcohol in the p ast year? No Points 0 Interpretation Negative Tobacco use other than smoking: Question Answer Notes Are you an other tobacco user? No PROBLEMS Problem Type ICD Code Onset Dates Problem Status W/U Status Risk SNOMED Code Notes Problem Atherosclerosis of [place] artery of both lower extremities, with unspecified presence of clinical manifestation (I70.203) Active confirmed [id number] VITAL SIGNS Height 5 ft 7 in in 09/01/2022 Weight 177 lbs 09/01/2022 BMI 27.72 kg/m2 09/01/2022 PROCEDURES Procedure Date Ordered Date Performed Result Body Sit e 95626-JALKNAM NAIL, 6 OR MORE 09/01/2022 N/A 66616-GWGJ SKIN LESIONS, 2 TO 4 09/01/2022 N/A Encounters Encounter Location Date Provider Diagnosis [facility] [address] 09/01/2022 Palmer Perez Atherosclerosis of [place] artery of both lower extremities, with unspecified presence of clinical manifestation I70.203 ; Tinea unguium B35.1 ; Pain in right toe(s) M79.674 and Pain in left toe(s) M79.[address] [facility] [address] 02/14/2023 [facility] [address] [address] 02/27/2023 Palmer Perez ASSESSMENTS Encounter Date Diagnosis Assessment Notes Treatment Notes Treatment Clinical Notes 09/01/2022 Tinea unguium (ICD-1 0 - B35.1) 09/01/2022 Atherosclerosis of [place] artery of both lower extremities, with unspecified presence of clinical manifestation (ICD-10 - I70.203) 09/01/2022 Pain in right toe(s) (ICD-10 - M79.674) 09/01/2022 Pain in left toe(s) (ICD-10 - M79.675) PLAN OF TREATMENT Pending Test Test Name Order Date X ray : Ankle, left 3V 05/19/2011 46311-TQQSHEO NAIL, 6 OR MORE 05/19/2011 77483-QOJEBBP NAIL, 6 OR MORE 07/21/2011 16870-ZUQJOBX NAIL, 6 OR MORE 11/24/2011 40718-NXAFMUR NAIL, 6 OR MORE 02/03/2012 28059-GTNSSIS NAIL, 6 OR MORE 04/05/2012 65197-GYKJDUP NAIL, 6 OR MORE 07/05/2012 51105-LBCQUCK NAIL, 6 OR MORE 11/01/2012 98097-NGLEMRV NAIL, 6 OR MORE 02/15/2013 22357-TCIJDLV NAIL, 6 OR MORE 05/17/2013 80133-QYIBJUI NAIL, 6 OR MORE 08/13/2013 48341-ZMICQYP NAIL, 6 OR MORE 12/03/2013 21864-YANCNKK NAIL, 6 OR MORE 09/22/2011 31975-ETSPFHW NAIL, 6 OR MORE 03/07/2014 99410-LCGJLGG NAIL, 6 OR MORE 07/14/2014 90357-OWZPFEF NAIL, 6 OR MORE 10/13/2014 56422-ELCBGJJ NAIL, 6 OR MORE 01/13/2015 93832-USOXGFQ NAIL, 6 OR MORE 04/17/2015 91754-XUUMLZX NAIL, 6 OR MORE 07/24/2015 25229-UQXVPZV NAIL, 6 OR MORE 10/23/2015 45351-RKEVXVD NAIL, 6 OR MORE 01/29/2016 14449-IFUDXIB NAIL, 6 OR MORE 04/29/2016 34349-CQRGQAD NAIL, 6 OR MORE 07/29/2016 07977-OVLVBNA NAIL, 6 OR MORE 11/04/2016 71222-HAQECWC NAIL, 6 OR MORE 02/27/2017 58255-QFOZOHI NAIL, 6 OR MORE 05/09/2017 31888-WVULHPY NAIL, 6 OR MORE 07/14/2017 90638-LFRWWPR NAIL, 6 OR MORE 09/15/2017 34487-BAANTZE NAIL, 6 OR MORE 12/01/2017 30887-CPRLTMR NAIL, 6 OR MORE 02/23/2018 23408-VVVGENB NAIL, 6 OR MORE 05/11/2018 46805-ZVLTLNB NAIL, 6 OR MORE 07/20/2018 74012-LITXNGI NAIL, 6 OR MORE 10/12/2018 81067-XLIKSUZ NAIL, 6 OR MORE 01/01/2019 67914-QKSFUXS NAIL, 6 OR MORE 12/31/2019 86296-HAIZKLO NAIL, 6 OR MORE 07/24/2020 43031-VFPRXZU NAIL, 6 OR MORE 11/03/2020 72061-VNYLPQV NAIL, 6 OR MORE 01/12/2021 67464-XJYRHGG NAIL, 6 OR MORE 03/29/2021 76894-KLDUWGZ NAIL, 6 OR MORE 07/12/2021 34824-UDZYLGZ NAIL, 6 OR MORE 12/13/2021 30215-CVUADXS NAIL, 6 OR MORE 09/01/2022 06601-Pymqaixt Plate 02/03/2012 49652-Rigtaeug Plate 07/21/2011 12444-MKMY SKIN LESIONS, 2 TO 4 02/16/20 13 48403-YYHG SKIN LESIONS, 2 TO 4 11/02/19 13 78890-QDRK SKIN LESIONS, 2 TO 4 01/14/20 15 91320-PSOA SKIN LESIONS, 2 TO 4 10/14/19 15 70555-ZLXQ SKIN LESIONS, 2 TO 4 07/15/19 15 62453-PTHE SKIN LESIONS, 2 TO 4 03/07/20 14 30155-GJIC SKIN LESIONS, 2 TO 4 12/04/19 14 39103-KCUT SKIN LESIONS, 2 TO 4 08/14/19 14 21431-SARF SKIN LESIONS, 2 TO 4 05/17/19 14 48462-NGVU SKIN LESIONS, 2 TO 4 01/02/20 19 86801-XVXY SKIN LESIONS, 2 TO 4 10/13/19 19 33516-ATAQ SKIN LESIONS, 2 TO 4 07/21/19 19 74672-AAYQ SKIN LESIONS, 2 TO 4 05/11/19 19 21938-HAKL SKIN LESIONS, 2 TO 4 02/24/20 18 71604-WQNC SKIN LESIONS, 2 TO 4 12/02/19 18 80500-EOBF SKIN LESIONS, 2 TO 4 09/16/19 18 13305-SSBO SKIN LESIONS, 2 TO 4 07/15/19 18 89702-FNQQ SKIN LESIONS, 2 TO 4 05/09/19 18 23443-WIGJ SKIN LESIONS, 2 TO 4 02/28/20 17 35329-NFXB SKIN LESIONS, 2 TO 4 11/05/19 17 69965-YITZ SKIN LESIONS, 2 TO 4 04/29/19 17 66407-EGZB SKIN LESIONS, 2 TO 4 07/30/19 17 44300-DTPH SKIN LESIONS, 2 TO 4 01/29/20 16 56060-VSJC SKIN LESIONS, 2 TO 4 10/23/19 16 66594-WDSK SKIN LESIONS, 2 TO 4 07/24/19 16 06545-ALEM SKIN LESIONS, 2 TO 4 04/17/19 16 96884-ISQF SKIN LESIONS, 2 TO 4 09/02/19 23 86371-MGDL SKIN LESIONS, 2 TO 4 12/14/19 22 58656-CAEP SKIN LESIONS, 2 TO 4 07/13/19 22 88604-MPID SKIN LESIONS, 2 TO 4 03/29/19 22 47331-XJOF SKIN LESIONS, 2 TO 4 01/13/20 21 87613-VWUR SKIN LESIONS, 2 TO 4 11/04/19 21 83093-XSCO SKIN LESIONS, 2 TO 4 07/25/19 21 76482-GSJF SKIN LESIONS, 2 TO 4 12/31/19 20 42885-HVUI SKIN LESION 09/22/2011 36778-PVXG SKIN LESION 07/05/2012 11990-KHAL SKIN LESION 04/05/2012 94537-BJOD SKIN LESION 02/03/2012 45190-JEPU SKIN LESION 11/24/2011 Insurance Providers Payer Name Payer Address Payer Phone Subscriber Number Group Number Insured Name Patient Relationship to Insured Coverage Start Date Coverage End Date Medicare National [employer] [address] [place] [address] [id number] Bryn Woo Self - patient is the insured [facility] [address] [place], [place] [id number] Bryn Woo Self - patient is the insured MEDICAL (GENERAL) HISTORY Medical History History ICD Code hypertension transfusions Hiatal hernia cataracts back, hip, knee pain Cholesterol ASO/PVD Arthritis - Degenerative Surgical History Surgery Date(Month/Year) head surgery 2008 neck surgery 2008 Hernia repair 04/11/2012 teeth extraction Hospitalization History Reason Date(Month/Year) [facility]- Fell/ dehydration [employer] [place] [employer] 1 day stay 10/31/2020 [facility] 03/01/17 Patient admitted to [facility] for 1 week for abdominal pain. 12/2012 [facility] for testing 06/07/2012 [place] for 2 weeks 03/2012
--- OUTSIDE RECORDS SUMMARY | 2023-03-02 08:18 | XMS_ITS | Continuity of Care Document ---
Author Name Unknown Organization [facility] Address [address] [place] [address]- Care Team Providers Care Package Center Supervisor Name Role Phone Keyon Molina MD Primary Care Physician Encounter [facility] NBR [id number] Date(s): 07/22/20 - 08/21/20 [facility] [address] [place] [id number] Attending Physician: Emmy Corona Admitting Physician: AdmtrEmmy Referring Physician: AdmtrEmmy Allergies, Adverse Reactions, Alerts Substance Reaction Severity Status NKA Active Medications citalopram 20 mg oral tablet 1 tablet = 20 mg, By Mouth, Daily, # 30 tablet, 0 Refills, Maintenance, Tablet Start Date: 03/30/12 Status: Ordered Culturelle DS 80 mg oral capsule 1, capsule, By Mouth, 2 times a day, # 28 capsule, 07/02/08 8:55:03 Start Date: 07/02/08 Stop Date: 07/16/08 Status: Ordered Esomeprazole Capsule 40 mg, By Mouth, Daily, Maintenance, 01/04/13 12:20:02 Start Date: 01/04/13 Status: Ordered Hydrochlorothiazide = 25 mg, By Mouth, Daily, 0 Refills, Maintenance Start Date: 03/30/12 Status: Ordered Milk of Magnesia Liquid 15 mL, By Mouth, 2 times a day, 0 Refills, Maintenance, Suspension Start Date: 01/04/13 Status: Ordered Pt.'s Own Meds Maintenance, supplement iron 325 mg daily, 03/30/12 10:47:30 Start Date: 03/30/12 Status: Ordered Tylenol Tablet 650, mg, By Mouth, Scheduled / PRN, 0, 0, 01/05/05 18:44:09, as needed for pain Start Date: 01/05/05 Status: Ordered Social History Social History Type Response Smoking Status Former smoker; Tobac co user in household: No; Type: Cigarettes entered on: 07/21/14 Sex
--- OUTSIDE RECORDS SUMMARY | 2023-03-02 08:18 | XMS_ITS | Continuity of Care Document ---
Author Name Unknown Organization [facility] Address [address] [place] [address]- Care Team Providers Care Shoe Repairer Apprentice Name Role Phone Keyon Molina MD Primary Care Physician Encounter [facility] NBR [id number] Date(s): 07/20/20 - 08/21/20 [facility] [address] [place] [id number] Attending Physician: Silvio Aggarwal MD Allergies, Adverse Reactions, Alerts Substance Reaction [...]
[2023-03-02 08:23] LABS: INTERNATIONAL NORM RATIO 1.1 (0.9-1.1); Prothrombin Time 13.8 SEC (11.1-13.3)
[2023-03-02 08:33] LABS: Anion Gap 16 (12-20); Blood Urea Nitrogen 26 mg/dL (9-16); Carbon Dioxide 24 mmol/L (22-29); Chloride 105 mmol/L (96-108); Potassium 4.9 mmol/L (3.3-5.1); Sodium 140 mmol/L (135-145)
[2023-03-02 08:34] LABS: Alanine Aminotransferase 8 U/L (0-40); Albumin Level 3.6 g/dL (3.5-5.0); Alkaline Phosphatase 77 U/L (39-117); Aspartate Amino Transferase 15 U/L (5-37); Bilirubin Total 0.2 mg/dL (0.0-1.0); Calcium 9.1 mg/dL (8.4-10.2); Creatinine Clr Calc Pharmacy 32.9; Estimated Glomerular Filt Rate 43; Glucose Random 153 mg/dL (60-115); Magnesium 1.9 mg/dL (1.6-2.6); Total Protein 7.8 g/dL (6.5-8.0)
[2023-03-02] MEDS: iohexoL 350 MG/ML 100 ML INFUS..BTL IV (09:26)
--- NOTE | 2023-03-02 13:52 | PHA.MEDREC ---
Pharmacy Consult ? Medication Reconciliation Pharmacy has completed the medication reconciliation. Patient came from [facility] with med list. Xochitl Castorena, TieraD
--- NOTE | 2023-03-02 16:02 | PM.CNGS ---
History of Present Illness Consult details Consult date: 03/02/23 Narrative: Patient is a 7-year-old male with a plethora of medical problems who lives at the [facility] who has had a longstanding history of a right inguinal hernia who now presents with a small-bowel obstruction and incarcerated right inguinal hernia. Workup including physical exam and CT scan demonstrated the hernia. Patient has a significant other who is also his power of ground support equipment fitter to help give collateral history as the patient has among other intercurrent medical problems dementia. Chart was reviewed patient evaluated [facility] Past Medical History Medical History Reducible right inguinal hernia Small bowel obstruction Dementia Social History Social History Household Members: Other Household Members Other:: From [place] Housing: Retirement Unable to assess alcohol history related to: Unknown Alcohol intake: former Patient Tobacco Use Status: Tobacco use Unknown Smoked in Last 30 Days: No Use of substances other than those prescribed or required for medical reasons: No Advance Directives: Yes Advance Directives on File: Yes Advance Directives Date on File: 03/03/22 service: Yes Meds Allergies Allergy/AdvReac Type Severity Reaction Status Date / Time No Known Allergies Allergy Verified 03/02/22 00:18 Active Medications: Current Medications Sodium Chloride (Ns) 500 mls @ 500 mls/hr IV .Q1H SRAVANTHI Stop: 03/02/23 16:59 Home Medications Medication Instructions Recorded Confirmed Last Taken Type albuterol sulfate 2.5 mg/3 mL 2.5 mg inhalation Q4H PRN SOB 12/28/22 03/02/23 12/27/22 History (0.083 %) solution for nebulization aluminum-mag hydroxide-simethicone 30 ml PO QID PRN GI UPSET/HEARTBURN 12/28/22 03/02/23 12/27/22 History 200 mg-200 mg-20 mg/5 mL oral susp carboxymethylcellulose sodium 1 % 2 drp ophthalmic (eye) TID 12/28/22 03/02/23 03/01/23 History eye drops cholecalciferol (vitamin D3) 25 25 mcg PO DAILY 12/28/22 03/02/23 03/01/23 History mcg (1,000 unit) tablet escitalopram oxalate 5 mg tablet 5 mg PO DAILY 12/28/22 03/02/23 03/01/23 History (Lexapro) ferrous sulfate 325 mg (65 mg 325 mg PO BID 12/28/22 03/02/23 03/01/23 History iron) tablet loratadine 10 mg capsule 10 mg PO DAILY 12/28/22 03/02/23 03/01/23 History quetiapine 25 mg tablet (Seroquel) 12.5 mg PO BEDTIME 12/28/22 03/02/23 03/01/23 History acetaminophen 325 mg capsule 650 mg PO Q4H PRN pain or fever 01/19/23 03/02/23 Unknown History bisacodyl 5 mg tablet 10 mg PO BEDTIME 01/19/23 03/02/23 03/01/23 History loperamide 2 mg tablet 2 mg PO TID PRN Diarrhea 01/19/23 03/02/23 Unknown History sodium phosphates 19 gram-7 118 ml GA DAILY PRN Constipation 01/19/23 03/02/23 Unknown History gram/118 mL enema (Fleet Enema) cyanocobalamin (vitamin B-12) 500 500 mcg PO DAILY 03/02/23 03/02/23 03/01/23 History mcg tablet guaifenesin 100 mg/5 mL oral liquid 200 mg PO Q4H PRN Cough 03/02/23 03/02/23 Unknown History magnesium hydroxide 400 mg/5 mL 30 ml PO BEDTIME PRN Constipation 03/02/23 03/02/23 Unknown History oral suspension sodium chloride 0.65 % nasal spray 2 spray intranasal Q4H PRN dryness 03/02/23 03/02/23 Unknown History aerosol Physical Exam Vital Signs: Vital Signs: Last Vital Signs Temp 98.2 F 03/02/23 08:11 Pulse 77 03/02/23 14:00 Resp 20 03/02/23 14:00 BP 126/63 03/02/23 14:00 Pulse Ox 96 03/02/23 12:00 O2 Del Method Room Air 03/02/23 12:00 BMI result Body Mass Index 26.2 Const: Other: Elderly frail male. Communicative but confused Chest: Other: Chest breath sounds bilaterally, HS 1 and 2. Copious upper airway secretions GI: Other: Abdomen midline scar. No incisional hernia. Mildly distended. Left groin negative. Genitalia within the limits. Right inguinal hernia incarcerated which with moderate pressure was reduced. Results Labs 03/02/23 08:11 03/02/23 08:11 Labs: Abnormal lab results 03/02/23 03/02/23 Range/Units 08:11 08:18 WBC 13.8 H (4.8-10.8) X10*3/uL RBC 3.96 L D (4.60-5.80) X10*6/uL Hgb 12.4 L D (14.0-18.0) g/dl Hct 38.1 L D (42.0-52.0) % Plt Count 492 H D (160-400) X10*3/uL Immature Gran % (Auto) 1.0 H (0.0-0.4) % Neut % (Auto) 84.1 H (45-73) % Lymph % (Auto) 6.9 L (20-40) % Lymph # (Auto) 1.0 L (1.2-4.9) X10*3/uL Abs Immat Gran (auto) 0.14 H (0.00-0.03) X10*3/uL Absolute Neuts (auto) 11.6 H (2.0-8.3) x10*3/uL PT 13.8 H (11.1-13.3) SEC BUN 26 H (9-16) mg/dL Creatinine 1.53 H (0.5-1.4) mg/dL Random Glucose 153 H (60-115) mg/dL Crossmatch See Detail Crossmatch (AHG) See Detail Short CBC 03/02/23 Range/Units 08:11 WBC 13.8 H (4.8-10.8) X10*3/uL Hgb 12.4 L D (14.0-18.0) g/dl Hct 38.1 L D (42.0-52.0) % Plt Count 492 H D (160-400) X10*3/uL BMP 03/02/23 08:11 Sodium 140 Potassium 4.9 D Chloride 105 Carbon Dioxide 24 BUN 26 H Creatinine 1.53 H Calcium 9.1 D Liver Function 03/02/23 Range/Units 08:11 Total Bilirubin 0.2 (0.0-1.0) mg/dL AST 15 (5-37) U/L ALT 8 (0-40) U/L Alkaline Phosphatase 77 (39-117) U/L Albumin 3.6 (3.5-5.0) g/dL All other labs normal. Assessment and Plan (1) Incarcerated right inguinal hernia: Status: Acute (2) SBO (small bowel obstruction): Status: Acute Plan Patient is being admitted to medical service for restorative measures and tentatively patient will be scheduled tomorrow for repair of his incarcerated right inguinal hernia. Risks, benefits, alternatives of hernia repair were reviewed with the patient's significant other/power of ground support equipment fitter and included but not limited to bleeding, infection, recurrence, numbness, pain, scarring, bowel resection and she wishes to proceed. All questions were answered. Arrangements were made for this as an add on for tomorrow morning. Procedures Date of Service Date of Service: 03/02/23
--- NOTE | 2023-03-02 17:04 | P.HPHOSP_ITS ---
History of Present Illness Date of Service: 03/02/23 Attending physician on admission: Ryan Ignacio Chief Complaint: vomiting This is an 87 year old male with history of dementia, severe , recent admission for SBO due to hernia who presents for vomiting. CT scan showing right inguinal hernia containing a loop of small bowel with proximal small-bowel obstruction. He was admitted in December under similar circumstances and at that time he was treated conservatively and improved. At that time he was evaluated by Cardiology who deemed him to be high risk due to multiple comorbidities including severe aortic stenosis and mitral stenosis. He was evaluated by General surgery in the emergency department and his hernia was able to be reduced. He was also noted to have YEYO with creatinine of 1.53. Plan to admit to medical service with procedure tomorrow under MAC. Review of Systems 2 Review of Systems: Yes all other systems are reviewed and are negative Constitutional: Constitutional: Denies chills and Denies fever(s) Cardiovascular: Cardiovascular: Denies chest pain, Denies palpitations and Denies dyspnea Respiratory: Respiratory: Denies dyspnea Neurologic: Reports confusion Psychiatric: Psychiatric: Reports confusion Endocrine: Endocrine: Denies palpitations [facility] Medical History (Updated 03/02/23 @ 17:23 by WILEY Clifford) Nonrheumatic aortic (valve) stenosis Reducible right inguinal hernia Small bowel obstruction Dementia Pertinent family history: reviewed, patient unable to provide family history due to dementia Social History Household Members: Other Household Members Other:: From [facility] Housing: Jail Unable to assess alcohol history related to: Unknown Alcohol intake: former Patient Tobacco Use Status: Tobacco use Unknown Smoked in Last 30 Days: No Use of substances other than those prescribed or required for medical reasons: No Advance Directives: Yes Advance Directives on File: Yes Advance Directives Date on File: 03/03/22 service: Yes Meds Allergies Allergy/AdvReac Type Severity Reaction Status Date / Time No Known Allergies Allergy Verified 03/02/22 00:18 Active Medications: Current Medications Acetaminophen (Acetaminophen Supp 650 Mg Supp.Rect) 650 mg [place] Q6H PRN PRN Reason: Pain, Mild (Pain Scale 1-3) Albuterol Sulfate (Albuterol Sulfate (0.083%) 2.5 Mg/3 Ml Vial.Neb) 2.5 mg INHALE Q4H PRN PRN Reason: Shortness of Breath Lactated Ringer's (Lr) 1,000 mls @ 80 mls/hr IVCONT .[id number] [facility] Stop: 03/03/23 05:44 Morphine Sulfate (Morphine Sulfate 4 Mg/Ml Cartridge) 2 mg IVPUSH Q4H PRN; Protocol PRN Reason: Pain, Severe (Pain Scale 7-10) Non-Formulary Medication (Carboxymethylcellulose Sodium) 2 drop EYE-BOTH TID [facility] Sodium Chloride (0.9 % Sodium Chloride Flush 3 Ml Syringe) 3 ml IVFLUSH QSHIFT [facility] Sodium Chloride (Sodium Chloride 0.65 % Nasal 44 Ml Sprbtl) 2 spray NOSTRIL-B Q4H PRN PRN Reason: dryness Home Medications Medication Instructions Recorded Confirmed Last Taken Type albuterol sulfate 2.5 mg/3 mL 2.5 mg inhalation Q4H PRN SOB 12/28/22 03/02/23 12/27/22 History (0.083 %) solution for nebulization aluminum-mag hydroxide-simethicone 30 ml PO QID PRN GI UPSET/HEARTBURN 12/28/22 03/02/23 12/27/22 History 200 mg-200 mg-20 mg/5 mL oral susp carboxymethylcellulose sodium 1 % 2 drp ophthalmic (eye) TID 12/28/22 03/02/23 03/01/23 History eye drops cholecalciferol (vitamin D3) 25 25 mcg PO DAILY 12/28/22 03/02/23 03/01/23 History mcg (1,000 unit) tablet escitalopram oxalate 5 mg tablet 5 mg PO DAILY 12/28/22 03/02/23 03/01/23 History (Lexapro) ferrous sulfate 325 mg (65 mg 325 mg PO BID 12/28/22 03/02/23 03/01/23 History iron) tablet loratadine 10 mg capsule 10 mg PO DAILY 12/28/22 03/02/23 03/01/23 History quetiapine 25 mg tablet (Seroquel) 12.5 mg PO BEDTIME 12/28/22 03/02/23 03/01/23 History acetaminophen 325 mg capsule 650 mg PO Q4H PRN pain or fever 01/19/23 03/02/23 Unknown History bisacodyl 5 mg tablet 10 mg PO BEDTIME 01/19/23 03/02/23 03/01/23 History loperamide 2 mg tablet 2 mg PO TID PRN Diarrhea 01/19/23 03/02/23 Unknown History sodium phosphates 19 gram-7 118 ml [place] DAILY PRN Constipation 01/19/23 03/02/23 Unknown History gram/118 mL enema (Fleet Enema) cyanocobalamin (vitamin B-12) 500 500 mcg PO DAILY 03/02/23 03/02/23 03/01/23 History mcg tablet guaifenesin 100 mg/5 mL oral liquid 200 mg PO Q4H PRN Cough 03/02/23 03/02/23 Unknown History magnesium hydroxide 400 mg/5 mL 30 ml PO BEDTIME PRN Constipation 03/02/23 03/02/23 Unknown History oral suspension sodium chloride 0.65 % nasal spray 2 spray intranasal Q4H PRN dryness 03/02/23 03/02/23 Unknown History aerosol Physical Exam 2 Vital Signs and Narrative: Vital Signs: Last Vital Signs Temp 98.2 F 03/02/23 08:11 Pulse 77 03/02/23 14:00 Resp 20 03/02/23 14:00 BP 126/63 03/02/23 14:00 Pulse Ox 96 03/02/23 12:00 O2 Del Method Room Air 03/02/23 12:00 BMI result Body Mass Index 26.2 Const: General: cooperative, comfortable, no acute distress, alert, awake and confusion Nutritional Appearance: average body habitus O rientation/consciousness: oriented to person and confusion Resp: Effort & Inspection: normal respiratory effort, able to speak in complete sentences, no respiratory distress and no use of accessory muscles Cardio: Rate: regular rate Heart sounds: Murmur heart sound present GI: Palpation (GI): Soft to palpation and no guarding Neuro: General: oriented to person, moves all extremities and confusion Extrem: General: Yes no pedal edema Results Labs 03/02/23 08:11 03/02/23 08:11 Labs: Laboratory Results - last 24 hr 03/02/23 03/02/23 03/02/23 08:11 08:18 08:18 MCV 96.2 MCH 31.3 MCHC 32.5 RDW 13.5 Plt Count 492 H D MPV 10.3 Immature Gran % (Auto) 1.0 H Neut % (Auto) 84.1 H Lymph % (Auto) 6.9 L [place] % (Auto) 5.3 Eos % (Auto) 2.3 Baso % (Auto) 0.4 Lymph # (Auto) 1.0 L [place] # (Auto) 0.7 Eos # (Auto) 0.3 Baso # (Auto) 0.1 Abs Immat Gran (auto) 0.14 H Absolute Neuts (auto) 11.6 H Absolute Nucleated RBC 0.000 Nucleated RBC % (auto) 0.0 PT 13.8 H INR 1.1 Anion Gap 16 Estim Creat Clear Calc 32.9 Estimated GFR 43 Random Glucose 153 H Calcium 9.1 D Magnesium 1.9 Total Bilirubin 0.2 AST 15 ALT 8 Alkaline Phosphatase 77 Total Protein 7.8 Albumin 3.6 Blood Type O Negative Antibody Screen POSITIVE Antibody Identification Inconclusive Anti-S Antigen Identification S Antigen - NEGATIVE Crossmatch See Detail Crossmatch (AHG) See Detail Imaging Radiologist's Impressions: Impressions Abdomen/Pelvis CT 03/02/23 09:30 IMPRESSION: 1. No evidence of contrast extravasation or higher attenuation of fluid within the GI tract to suspect any site of GI bleed. 2. There is a right inguinal hernia containing a loop of small bowel with proximal small bowel obstruction. The proximal small bowel obstruction may be cause for generalized colonic ileus 3. Bilateral renal cysts. 4. Cholelithiasis without wall thickening Assessment and Plan (1) Incarcerated right inguinal hernia: Status: Acute (2) SBO (small bowel obstruction): Status: Acute (3) Dementia: Status: Acute Plan Patient is an 87-year-old male with PMH significant for TBI, dementia unspecified, CAD, aortic stenosis, CKD 3, Crohn's disease, allergic rhinitis, and iron deficiency anemia who presents [facility] for evaluation of vomiting and recent fall with question of head injury. Medical consult for preop clearance SBO secondary to obstructing right inguinal hernia hernia able to be reduced in ED by surgery - plan for procedure under MAC tomorrow echo obtained last admission - showing severe and probable MS. Should surgery be needed, pt will be at a significant risk for perioperative cardiopulmonary complications on the basis of advanced age, hx of dementia, severe aortic stenosis, and other comorbidities NPO gentle IVF surgery following - can hold off on NGT unless actively vomiting YEYO on CKD3 SCr 1.5, baseline 1.1-1.9 likely due to vomiting from above Iron deficiency anemia H&H above transfusion threshold hold iron supplementation for now, can resume when tolerating po Dementia unspecified/mood disorder lexapro, Seroquel on hold until tolerating meds Allergic rhinitis loratadine on hold continue home inhalers dvt ppx - boots due to plan for surgical intervention in am code status - MOLST form in chart DNR/DNI confirmed with HCP/KIERAN Ramirez at bedside attending - Dr. Ignacio dispo: from the [facility] - likely return when medically ready patient will likely require two midnight stay in the hospital for mangement of SBO/hernia requiring surgical intervention and close monitor given high risk for perioperative cardiopulmonary complications. Quality Stroke Does the patient have a stroke diagnosis?: No VTE Prior VTE?: No VTE Risk Level:: Medical - moderate - high VTE Device Contraindication: N/A - Device Ordered VTE Drug Contraindication: Treatment Not Indicated
--- NOTE | 2023-03-02 17:07 | PC.NURSE ---
x1 attempt made to place NG tube unsuccessful. Patient attempting to remove tube, provider aware. Provider stating that no need for NG tube at this time as he is not throwing up at this time. Patient and hcp aware and in agreement for surgical procedure in AM- aware that patient does not need to go under general anesthesia for procedure in AM
[2023-03-02] MEDS: Lactated Ringers 1,000 ML 80 ML IVCONT (18:11)
[2023-03-03] VITALS (9 sets, daily range): BP systolic 101–160; BP diastolic 50–68; PULSE 62–78; RESP 14–18; TEMP 36–36.7; O2SAT 92–98; BMI 26.2
[2023-03-03 08:20] LABS: Hematocrit 32.2 % (42.0-52.0); Hemoglobin 10.2 g/dl (14.0-18.0); Mean Corpuscular HGB Conc 31.7 g/dl (31.0-36.0); Mean Corpuscular Hemoglobin 30.4 pg (27.0-33.0); Mean Corpuscular Volume 96.1 fL (80.0-98.0); Mean Platelet Volume 10.5 fL (9.4-12.4); Platelet Count 402 X10*3/uL (160-400); Red Blood Count 3.35 X10*6/uL (4.60-5.80); Red Cell Distribution Width 13.7 % (11.0-16.0); White Blood Count 8.3 X10*3/uL (4.8-10.8)
[2023-03-03 08:35] LABS: Anion Gap 11 (12-20); Blood Urea Nitrogen 19 mg/dL (9-16); Calcium 8.3 mg/dL (8.4-10.2); Carbon Dioxide 26 mmol/L (22-29); Chloride 108 mmol/L (96-108); Creatinine Clr Calc Pharmacy 42.6; Estimated Glomerular Filt Rate 58; Glucose Random 93 mg/dL (60-115); Potassium 4.6 mmol/L (3.3-5.1); Sodium 140 mmol/L (135-145)
[2023-03-03] MEDS: 0.9 % Sodium Chloride Flush 3 ML SYRINGE IVFLUSH (08:42)
--- NOTE | 2023-03-03 09:10 | MHC.CM.PN ---
Patient is a LTC Resident of the [facility] in [place] and returning there is the goal; CM has initiated and will follow for dc planning. Patient has a diagnosis of Dementia; CM left a detailed message for HCP/Ashley @ [phone] and addressed the IMM (original will be mailed certified letter to Ashley and a copy has been placed on the chart).
--- NOTE | 2023-03-03 12:51 | HO.PM.IMPN ---
Subjective Subjective Date of Service: 03/03/23 Interval History: seen and examined this morning follow up for SBO due to hernia received IM zyprexa overnight but this morning awake, alert and cooperative denies abdominal pain, had to be re-oriented to place due to underlying dementia. no specific complaints Review of Systems Review of Systems: Yes all other systems are reviewed and are negative Constitutional Constitutional: Denies chills and Denies fever(s) Cardiovascular Cardiovascular: Denies chest pain, Denies palpitations and Denies dyspnea Respiratory Respiratory: Denies cough and Denies dyspnea Endocrine Endocrine: Denies palpitations Physical Exam Vital Signs: Vital Signs: Last Vital Signs Temp 98.1 F 03/03/23 11:43 Pulse 62 03/03/23 11:43 Resp 15 03/03/23 11:43 BP 128/63 03/03/23 11:43 Pulse Ox 97 03/03/23 11:43 O2 Del Method Room Air 03/03/23 11:43 BMI result Body Mass Index 26.2 Const: General: cooperative, comfortable, no acute distress, alert and awake Nutritional Appearance: average body habitus Orientation/consciousness: oriented to person Resp: Effort & Inspection: normal respiratory effort, able to speak in complete sentences, no respiratory distress and no use of accessory muscles Cardio: Rate: regular rate Heart sounds: Murmur heart sound present GI: Palpation (GI): Soft to palpation and no guarding Neuro: General: oriented to person and moves all extremities Extrem: General: Yes no pedal edema Objective Data Active Medications Acetaminophen (Acetaminophen Supp 650 Mg Supp.Rect) [address] Q6H PRN PRN Reason: Pain, Mild (Pain Scale 1-3) Albuterol Sulfate (Albuterol Sulfate (0.083%) 2.5 Mg/3 Ml Vial.Neb) 2.5 mg INHALE Q4H PRN PRN Reason: Shortness of Breath Artificial Tears (Artificial Tears 15 Ml Drops) 2 drop EYE-BOTH TID [facility] Last Admin: 03/03/23 11:07 Dose: Not Given Documented By: ALLIE Non-Admin Reason: Med Not Available Escitalopram Oxalate (Escitalopram Oxalate 5 Mg Tablet) 5 mg PO DAILY [facility] Last Admin: 03/03/23 11:07 Dose: Not Given Documented By: ALLIE Non-Admin Reason: NPO Morphine Sulfate (Morphine Sulfate 4 Mg/Ml Cartridge) 2 mg IVPUSH Q4H PRN; Protocol PRN Reason: Pain, Severe (Pain Scale 7-10) Quetiapine Fumarate (Quetiapine Fumarate 25 Mg Tablet) 12.5 mg PO BEDTIME [facility] Sodium Chloride (0.9 % Sodium Chloride Flush 3 Ml Syringe) 3 ml IVFLUSH QSHIFT [facility] Last Admin: 03/03/23 08:42 Dose: 3 ml Documented By: ALLIE Sodium Chloride (Sodium Chloride 0.65 % Nasal 44 Ml Sprbtl) 2 spray NOSTRIL-B Q4H PRN PRN Reason: dryness Labs 03/03/23 07:39 03/03/23 07:39 Labs: Laboratory Results - last 24 hr 03/02/23 03/02/23 03/03/23 08:18 08:18 07:39 MCV 96.1 MCH 30.4 MCHC 31.7 RDW 13.7 Plt Count 402 H MPV 10.5 Absolute Nucleated RBC 0.000 Nucleated RBC % (auto) 0.0 Anion Gap 11 L Estim Creat Clear Calc 42.6 Estimated GFR 58 Random Glucose 93 Calcium 8.3 L D Antigen Identification K Antigen - NEGATIVE S Antigen - NEGATIVE Crossmatch See Detail Assessment and Plan (1) SBO (small bowel obstruction): Status: Acute (2) Incarcerated right inguinal hernia: Status: Acute (3) Dementia: Status: Acute Plan Patient is an 87-year-old male with PMH significant for TBI, dementia unspecified, CAD, aortic stenosis, CKD 3, Crohn's disease, allergic rhinitis, and iron deficiency anemia who presents from the [facility] for evaluation of vomiting and recent fall with question of head injury. Medical consult for preop clearance SBO secondary to obstructing right inguinal hernia hernia able to be reduced in ED by surgery - plan for procedure under MAC today echo obtained last admission - showing severe and probable MS. Should surgery be needed, pt will be at a significant risk for perioperative cardiopulmonary complications on the basis of advanced age, hx of dementia, severe aortic stenosis, and other comorbidities. risks discussed with Ashley - [facility] NPO for precedure surgery following - can hold off on NGT unless actively vomiting YEYO on CKD3 resolved with IVF likely from volume depletion due to vomiting from above Iron deficiency anemia H&H above transfusion threshold. H/H at baseline. drop overnight due to hemoconcentration on admission hold iron supplementation for now, can resume when tolerating po Dementia unspecified/mood disorder lexapro, Seroquel on hold until tolerating po Allergic rhinitis loratadine on hold continue home inhalers dvt ppx - boots due to plan for surgical intervention in am code status - MOLST form in chart DNR/DNI confirmed with HCP/POA Ashley at bedside attending - Dr. Ignacio dispo: from the [facility] - likely return when medically ready requires ongoing inpatient stay for management of SBO/hernia requiring surgical intervention and close monitoring given high risk for perioperative cardiopulmonary complications. Quality Stroke Does the patient have a stroke diagnosis?: No VTE Prior VTE?: No VTE Risk Level:: Medical - moderate - high VTE Device Contraindication: N/A - Device Ordered VTE Drug Contraindication: Treatment Not Indicated
--- NOTE | 2023-03-03 14:20 | P.CONAN_ITS ---
HPI - Anesthesia Eval Consult details Narrative: 87 yo M with incarcerated umbilical hernia. History of dementia and severe aortic stenosis with an alrtic valve area of 0.57 cm2 [facility] Active Problems Active Problems: All Active Problems (Updated 03/02/23 @ 17:23 by WILEY Clifford) Incarcerated right inguinal hernia (Acute) SBO (small bowel obstruction) (Acute) Ileus (Acute) Dementia (Acute) Preoperative cardiovascular examination (Acute) Past Medical History Medical History (Updated 03/02/23 @ 17:23 by WILEY Clifford) Nonrheumatic aortic (valve) stenosis Reducible right inguinal hernia Small bowel obstruction Dementia Surgical History History of Problems with Anesthesia: No Social History Social History Household Members: Other Household Members Other:: From [facility] Housing: [facility] Unable to assess alcohol history related to: Unknown Alcohol intake: former Patient Tobacco Use Status: Tobacco use Unknown Smoked in Last 30 Days: No Use of substances other than those prescribed or required for medical reasons: No Currently Displaying Signs/Symptoms of Drug Intoxication Withdrawal: No Advance Directives: Yes Advance Directives on File: Yes Advance Directives Date on File: 03/03/22 Do you have thoughts of harming others: None Do you have a plan to hurt others: No Plan Recently lost weight without trying: Unsure Eating poorly because of decreased appetite: No Nutrition Risks: No Nutritional Risk Poor oral hygiene: No service: Yes Meds Allergies Allergy/AdvReac Type Severity Reaction Status Date / Time No Known Allergies Allergy Verified 03/02/22 00:18 Active Medications: Current Medications Acetaminophen (Acetaminophen Supp 650 Mg Supp.Rect) 650 mg ID Q6H PRN PRN Reason: Pain, Mild (Pain Scale 1-3) Albuterol Sulfate (Albuterol Sulfate (0.083%) 2.5 Mg/3 Ml Vial.Neb) 2.5 mg INHALE Q4H PRN PRN Reason: Shortness of Breath Artificial Tears (Artificial Tears 15 Ml Drops) 2 drop EYE-BOTH TID [facility] Last Admin: 03/03/23 11:07 Dose: Not Given Escitalopram Oxalate (Escitalopram Oxalate 5 Mg Tablet) 5 mg PO DAILY [facility] Last Admin: 03/03/23 11:07 Dose: Not Given Morphine Sulfate (Morphine Sulfate 4 Mg/Ml Cartridge) 2 mg IVPUSH Q4H PRN; Protocol PRN Reason: Pain, Severe (Pain Scale 7-10) Quetiapine Fumarate (Quetiapine Fumarate 25 Mg Tablet) 12.5 mg PO BEDTIME [facility] Sodium Chloride (0.9 % Sodium Chloride Flush 3 Ml Syringe) 3 ml IVFLUSH QSHIFT [facility] Last Admin: 03/03/23 08:42 Dose: 3 ml Sodium Chloride (Sodium Chloride 0.65 % Nasal 44 Ml Sprbtl) 2 spray NOSTRIL-B Q4H PRN PRN Reason: dryness Home Medications Medication Instructions Recorded Confirmed Last Taken Type albuterol sulfate 2.5 mg/3 mL 2.5 mg inhalation Q4H PRN SOB 12/28/22 03/02/23 12/27/22 History (0.083 %) solution for nebulization aluminum-mag hydroxide-simethicone 30 ml PO QID PRN GI UPSET/HEARTBURN 12/28/22 03/02/23 12/27/22 History 200 mg-200 mg-20 mg/5 mL oral susp carboxymethylcellulose sodium 1 % 2 drp ophthalmic (eye) TID 12/28/22 03/02/23 03/01/23 History eye drops cholecalciferol (vitamin D3) 25 25 mcg PO DAILY 12/28/22 03/02/23 03/01/23 History mcg (1,000 unit) tablet escitalopram oxalate 5 mg tablet 5 mg PO DAILY 12/28/22 03/02/23 03/01/23 History (Lexapro) ferrous sulfate 325 mg (65 mg 325 mg PO BID 12/28/22 03/02/23 03/01/23 History iron) tablet loratadine 10 mg capsule 10 mg PO DAILY 12/28/22 03/02/23 03/01/23 History quetiapine 25 mg tablet (Seroquel) 12.5 mg PO BEDTIME 12/28/22 03/02/23 03/01/23 History acetaminophen 325 mg capsule 650 mg PO Q4H PRN pain or fever 01/19/23 03/02/23 Unknown History bisacodyl 5 mg tablet 10 mg PO BEDTIME 01/19/23 03/02/23 03/01/23 History loperamide 2 mg tablet 2 mg PO TID PRN Diarrhea 01/19/23 03/02/23 Unknown History sodium phosphates 19 gram-7 118 ml ID DAILY PRN Constipation 01/19/23 03/02/23 Unknown History gram/118 mL enema (Fleet Enema) cyanocobalamin (vitamin B-12) 500 500 mcg PO DAILY 03/02/23 03/02/23 03/01/23 History mcg tablet guaifenesin 100 mg/5 mL oral liquid 200 mg PO Q4H PRN Cough 03/02/23 03/02/23 Unknown History magnesium hydroxide 400 mg/5 mL 30 ml PO BEDTIME PRN Constipation 03/02/23 Unknown History oral suspension sodium chloride 0.65 % nasal spray 2 spray intranasal Q4H PRN dryness 03/02/23 03/02/23 Unknown History aerosol Exam Exam Date and Time: March 03, 2023 1420 Height,Weight and Vital Signs: Height 5 ft 8 in Weight 78.3 kg Last Vital Signs Temp 98.1 F 03/03/23 11:43 Pulse 62 03/03/23 11:43 Resp 15 03/03/23 11:43 BP 128/63 03/03/23 11:43 Pulse Ox 97 03/03/23 11:43 O2 Del Method Room Air 03/03/23 11:43 Pertinent Lab Results Pertinent Lab Results: Laboratory Tests 03/02/23 03/02/23 03/02/23 08:11 08:18 08:18 WBC 13.8 H RBC 3.96 L D Hgb 12.4 L D Hct 38.1 L D MCV 96.2 MCH 31.3 MCHC 32.5 RDW 13.5 Plt Count 492 H D MPV 10.3 Immature Gran % (Auto) 1.0 H Neut % (Auto) 84.1 H Lymph % (Auto) 6.9 L [place] % (Auto) 5.3 Eos % (Auto) 2.3 Baso % (Auto) 0.4 Lymph # (Auto) 1.0 L [place] # (Auto) 0.7 Eos # (Auto) 0.3 Baso # (Auto) 0.1 Abs Immat Gran (auto) 0.14 H Absolute Neuts (auto) 11.6 H Absolute Nucleated RBC 0.000 Nucleated RBC % (auto) 0.0 PT 13.8 H INR 1.1 Sodium 140 Potassium 4.9 D Chloride 105 Carbon Dioxide 24 Anion Gap 16 BUN 26 H Creatinine 1.53 H Estim Creat Clear Calc 32.9 Estimated GFR 43 Random Glucose 153 H Calcium 9.1 D Magnesium 1.9 Total Bilirubin 0.2 AST 15 ALT 8 Alkaline Phosphatase 77 Total Protein 7.8 Albumin 3.6 Blood Type O Negative Antibody Screen POSITIVE Antibody Identification Inconclusive Anti-S Antigen Identification K Antigen - NEGATIVE Crossmatch Crossmatch ([facility]) 03/02/23 03/03/23 08:18 07:39 WBC 8.3 RBC 3.35 L Hgb 10.2 L Hct 32.2 L MCV 96.1 MCH 30.4 MCHC 31.7 RDW 13.7 Plt Count 402 H MPV 10.5 Immature Gran % (Auto) Neut % (Auto) Lymph % (Auto) [place] % (Auto) Eos % (Auto) Baso % (Auto) Lymph # (Auto) [place] # (Auto) Eos # (Auto) Baso # (Auto) Abs Immat Gran (auto) Absolute Neuts (auto) Absolute Nucleated RBC 0.000 Nucleated RBC % (auto) 0.0 PT INR Sodium 140 Potassium 4.6 Chloride 108 Carbon Dioxide 26 Anion Gap 11 L BUN 19 H Creatinine 1.18 Estim Creat Clear Calc 42.6 Estimated GFR 58 Random Glucose 93 Calcium 8.3 L D Magnesium Total Bilirubin AST ALT Alkaline Phosphatase Total Protein Albumin Blood Type Antibody Screen Antibody Identification Antigen Identification S Antigen - NEGATIVE Crossmatch See Detail Crossmatch ([facility]) See Detail Airway Mallampati Class: III TM Dist: >3cm Neck ROM: Poor Loose/Missing/Broken Teeth: No Heart: S1S2 Lungs: CTAB Assessment and Plan Assessment Anesthesia Assessment: Anesthesia Plan Discussed and Chart Reviewed Final Anesthetic Review History of Problems with Anesthesia: No NPO: Yes ASA Class: IV Final Preanesthetic Review: No Changes in Pt Med Stat, Meds/Allgs Chart Reviewed, Consent Obtained/Reviewed, Anes Risks/Benef Reviewed and DNR Form (If Appl.) (DNR reversed with power of document review attorney) Patient Risk: High Procedure Risk: Intermediate Anesthetic Plan Anesthetic Plan: MAC: and Agree w/ Assess. and Plan Disposition: Standard PACU
--- NOTE | 2023-03-03 14:33 | PC.NURSE ---
Care transitioned to Americo [facility] [employer].
--- NOTE | 2023-03-03 17:26 | W.PM.OPN ---
Operative Note Operative Note Date of Service: 03/03/23 Narrative: Preoperative diagnosis: [] Incarcerated right inguinal hernia Postop diagnosis: [] Same Procedure [] open right inguinal herniorrhaphy Surgeon: [] Phan Direct Marketing Representative: [] Rachna Type of Anesthesia: [] MAC Indication for surgery: [] Patient is elderly frail man with a plethora of medical problems who presents with a small-bowel obstruction and incarcerated right inguinal hernia. Intraoperative findings demonstrated a large incarcerated indirect right inguinal hernia with viable small bowel contents. No direct hernia demonstrated. Findings: [] Patient brought to the operating room, placed on operative table supine position, after adequate level of MAC anesthesia was induced, the patient's right groin and abdomen were prepped and draped in usual sterile fashion. Using a small right para inguinal incision, this carried down through skin, subcutaneous tissue, and Elizabeth's fascia. External oblique fibers were opened their direction with care to isolate and preserve the ilioinguinal nerve throughout the procedure. Spermatic cord was identified and retracted from the field. A massive indirect incarcerated right inguinal hernia sac with small-bowel contents was encountered. This was from the spermatic cord. Hernia sac was opened where edematous but viable small bowel contents were reduced. Redundant sac was amputated and remaining sac was closed using running 2-0 Vicryl suture. This was then reduced. An extra-large Bard plug was placed in the indirect defect, and sutured inferiorly to the inguinal ligament and superiorly to the transversalis fascia using interrupted 0 Ethibond suture. At completion procedure, mesh was in good position and also covered the inguinal floor. The internal ring admitted 1 fingertip. Wound was irrigated, secured hemostasis, and closed in the following manner; external oblique fascia was closed using running 2-0 Vicryl suture. Elizabeth's fascia was reapproximated using interrupted 3-0 Vicryl sutures. Interrupted inverted deep dermal 3-0 Vicryl sutures followed by running subcuticular 4-0 Vicryl sutures were placed. Steri-Strips and sterile dressings were applied. The incision was infiltrated with an ilioinguinal block at the beginning of the case and infiltrated locally with 0.5% Marcaine/1% lidocaine. Sponge, needle, and instrument counts reported correct. Patient tolerated the procedure well and emerged anesthesia stable condition. EBL minimal. Ipsilateral testicle was intrascrotal at completion.
[2023-03-03] MEDS: QUEtiapine Fumarate 25 MG TABLET 12.5 MG PO (22:06)
[2023-03-04] MEDS: 0.9 % Sodium Chloride Flush 3 ML SYRINGE IVFLUSH ×4 (00:20→21:05)
[2023-03-04 03:24] VITALS: BP 166/78; PULSE 78; RESP 18; TEMP 36.7; O2SAT 95
[2023-03-04 07:47] VITALS: BP 138/64; PULSE 78; RESP 20; TEMP 36.6; O2SAT 97
--- NOTE | 2023-03-04 07:51 | P.PNGS_ITS ---
Subjective Subjective Date of Service: 03/04/23 Patient reports: no new complaints Interval history: The patient is seen in coverage for Dr. Chisholm Patient is postop day 1 from a plug repair of an incarcerated right inguinal hernia that contained viable small bowel. Due to dementia, the patient is an unreliable historian. Patient reports he is having no pain but also notes he is passing gas which is not corroborated by staff. He denies any other complaints like chest pain, difficulty breathing. Physical Exam 2 Vital Signs: Vital Signs: Last Vital Signs Temp 97.8 F 03/04/23 07:47 Pulse 78 03/04/23 07:47 Resp 20 03/04/23 07:47 BP 138/64 03/04/23 07:47 Pulse Ox 97 03/04/23 07:47 O2 Del Method Room Air 03/04/23 07:47 BMI result Body Mass Index 26.2 On exam, the patient is frail and elderly He is nontoxic He is having no respiratory difficulty Abdomen is a little tympanitic but there is no peritoneal sign. Expected right lower quadrant tenderness is noted in the area of the dressing and the dressing is clean dry and intact Objective Data Active Medications Acetaminophen (Acetaminophen Supp 650 Mg Supp.Rect) 650 mg [place] Q6H PRN PRN Reason: Pain, Mild (Pain Scale 1-3) Albuterol Sulfate (Albuterol Sulfate (0.083%) 2.5 Mg/3 Ml Vial.Neb) 2.5 mg INHALE Q4H PRN PRN Reason: Shortness of Breath Artificial Tears (Artificial Tears 15 Ml Drops) 2 drop EYE-BOTH TID [facility] Last Admin: 03/03/23 22:06 Dose: Not Given Documented By: ANAHI Non-Admin Reason: Med Not Available Escitalopram Oxalate (Escitalopram Oxalate 5 Mg Tablet) 5 mg PO DAILY [facility] Last Admin: 03/03/23 11:07 Dose: Not Given Documented By: ALLIE Non-Admin Reason: NPO Fentanyl (Fentanyl Citrate/Pf 100 Mcg/2 Ml Vial) 25 mcg IVPUSH Q5M PRN; Protocol PRN Reason: Pain, Moderate(Pain Scale 4-6) Hydromorphone HCl (Hydromorphone Hcl 0.5 Mg/0.5 Ml Syringe) 0.25 mg IVPUSH Q5M PRN; Protocol PRN Reason: Pain, Severe (Pain Scale 7-10) Morphine Sulfate (Morphine Sulfate 4 Mg/Ml Cartridge) 2 mg IVPUSH Q4H PRN; Protocol PRN Reason: Pain, Severe (Pain Scale 7-10) Ondansetron HCl (Ondansetron Hcl 4 Mg/2 Ml Vial) 4 mg IVPUSH ONCE PRN PRN Reason: Nausea and Vomiting Oxycodone HCl (Oxycodone Hcl Immed Release 5 Mg Tablet) 5 mg PO ONCE PRN PRN Reason: Pain, Severe (Pain Scale 7-10) Quetiapine Fumarate (Quetiapine Fumarate 25 Mg Tablet) 12.5 mg PO BEDTIME [facility] Last Admin: 03/03/23 22:06 Dose: 12.5 mg Documented By: ANAHI Sodium Chloride (0.9 % Sodium Chloride Flush 3 Ml Syringe) 3 ml IVFLUSH QSHIFT [facility] Last Admin: 03/04/23 00:20 Dose: 3 ml Documented By: ABY Sodium Chloride (Sodium Chloride 0.65 % Nasal 44 Ml Sprbtl) 2 spray NOSTRIL-B Q4H PRN PRN Reason: dryness Labs 03/03/23 07:39 03/03/23 07:39 Labs: Laboratory Results - last 24 hr 03/02/23 03/02/23 03/03/23 08:18 08:18 07:39 MCV 96.1 MCH 30.4 MCHC 31.7 RDW 13.7 Plt Count 402 H MPV 10.5 Absolute Nucleated RBC 0.000 Nucleated RBC % (auto) 0.0 Anion Gap 11 L Estim Creat Clear Calc 42.6 Estimated GFR 58 Random Glucose 93 Calcium 8.3 L D Antigen Identification K Antigen - NEGATIVE S Antigen - NEGATIVE Crossmatch See Detail Procedures Date of Service Date of Service: 03/04/23 Progress Note: A&P Assessment and plan (1) Ileus: Status: Acute (2) SBO (small bowel obstruction): Status: Acute (3) Incarcerated right inguinal hernia: Status: Acute (4) Dementia: Status: Acute Plan Can try a trial of water/clears and monitor closely since the patient has some tympany and may have an ileus. Unfortunately, his dementia makes him somewhat unreliable so he needs to be monitored closely for aspiration risk. Once bowel activity is demonstrated conclusively, the patient's diet can be advanced ad keiko. Resume NPO for worsening of bloating, nausea or vomiting. Will continue to follow with you. Please reach out with any specific questions. Time Spent With Patient Time: Total time managing care of this patient today ____ minutes. Quality Stroke Does the patient have a stroke diagnosis?: No VTE Prior VTE?: No VTE Risk Level:: Medical - moderate - high VTE Device Contraindication: N/A - Device Ordered VTE Drug Contraindication: Treatment Not Indicated
[2023-03-04] MEDS: Escitalopram Oxalate 5 MG TABLET PO (09:53)
[2023-03-04 11:38] VITALS: BP 138/63; PULSE 80; RESP 20; TEMP 36.4; O2SAT 98
--- NOTE | 2023-03-04 11:40 | HO.POSTANES ---
Post Anesthesia Evaluation Post Anesthesia Evaluation Date of Service: 03/04/23 Vital Signs: Vital Signs Temp Pulse Resp BP Pulse Ox O2 Del Method 03/04/23 07:47 97.8 F 78 20 138/64 97 Room Air 03/04/23 03:24 98.1 F 78 18 166/78 H 95 Room Air Anesthesia: General LMA Mental Status: Awake Pain Control: Satisfactory Nausea/Vomiting: None Hydration: Adequate Anesthesia-Related Issues: No Anes. Related Issues
--- NOTE | 2023-03-04 11:58 | HO.PM.IMPN ---
Subjective Subjective Date of Service: 03/04/23 Interval History: follow up for SBO due to hernia denies abdominal pain, had to be re-oriented to place due to underlying dementia. no specific complaints Review of Systems Review of Systems: Yes all other systems are reviewed and are negative Constitutional Constitutional: Denies chills and Denies fever(s) Cardiovascular Cardiovascular: Denies chest pain, Denies palpitations and Denies dyspnea Respiratory Respiratory: Denies cough and Denies dyspnea Endocrine Endocrine: Denies palpitations Physical Exam Vital Signs: Vital Signs: Last Vital Signs Temp 97.6 F 03/04/23 11:38 Pulse 80 03/04/23 11:38 Resp 20 03/04/23 11:38 BP 138/63 03/04/23 11:38 Pulse Ox 98 03/04/23 11:38 O2 Del Method Room Air 03/04/23 11:38 BMI result Body Mass Index 26.2 Appearing in no acute distress lung sounds are clear to auscultation heart regular rate rhythm, clear S1, S2 positive bowel sounds, abdomen is soft, nontender, lower abd dsg intact with no staining neuro patient is alert x3, no focal deficits Objective Data Active Medications Acetaminophen (Acetaminophen Supp 650 Mg Supp.Rect) 650 mg [place] Q6H PRN PRN Reason: Pain, Mild (Pain Scale 1-3) Albuterol Sulfate (Albuterol Sulfate (0.083%) 2.5 Mg/3 Ml Vial.Neb) 2.5 mg INHALE Q4H PRN PRN Reason: Shortness of Breath Artificial Tears (Artificial Tears 15 Ml Drops) 2 drop EYE-BOTH TID [facility] Last Admin: 03/04/23 09:54 Dose: Not Given Documented By: CHAR Non-Admin Reason: Med Not Available Escitalopram Oxalate (Escitalopram Oxalate 5 Mg Tablet) 5 mg PO DAILY [facility] Last Admin: 03/04/23 09:53 Dose: 5 mg Documented By: CHAR Fentanyl (Fentanyl Citrate/Pf 100 Mcg/2 Ml Vial) 25 mcg IVPUSH Q5M PRN; Protocol PRN Reason: Pain, Moderate(Pain Scale 4-6) Hydromorphone HCl (Hydromorphone Hcl 0.5 Mg/0.5 Ml Syringe) 0.25 mg IVPUSH Q5M PRN; Protocol PRN Reason: Pain, Severe (Pain Scale 7-10) Morphine Sulfate (Morphine Sulfate 4 Mg/Ml Cartridge) 2 mg IVPUSH Q4H PRN; Protocol PRN Reason: Pain, Severe (Pain Scale 7-10) Ondansetron HCl (Ondansetron Hcl 4 Mg/2 Ml Vial) 4 mg IVPUSH ONCE PRN PRN Reason: Nausea and Vomiting Oxycodone HCl (Oxycodone Hcl Immed Release 5 Mg Tablet) 5 mg PO ONCE PRN PRN Reason: Pain, Severe (Pain Scale 7-10) Quetiapine Fumarate (Quetiapine Fumarate 25 Mg Tablet) 12.5 mg PO BEDTIME [facility] Last Admin: 03/03/23 22:06 Dose: 12.5 mg Documented By: ANAHI Sodium Chloride (0.9 % Sodium Chloride Flush 3 Ml Syringe) 3 ml IVFLUSH QSHIFT [facility] Last Admin: 03/04/23 09:53 Dose: 3 ml Documented By: CHAR Sodium Chloride (Sodium Chloride 0.65 % Nasal 44 Ml Sprbtl) 2 spray NOSTRIL-B Q4H PRN PRN Reason: dryness Labs 03/03/23 07:39 03/03/23 07:39 Assessment and Plan (1) SBO (small bowel obstruction): Status: Acute (2) Incarcerated right inguinal hernia: Status: Acute (3) Dementia: Status: Acute Plan Patient is an 87-year-old male with PMH significant for TBI, dementia unspecified, CAD, aortic stenosis, CKD 3, Crohn's disease, allergic rhinitis, and iron deficiency anemia who presents from the [facility] for evaluation of vomiting and recent fall with question of head injury. Medical consult for preop clearance SBO secondary to obstructing right inguinal hernia echo obtained last admission - showing severe and probable MS. Should surgery be needed, pt will be at a significant risk for perioperative cardiopulmonary complications on the basis of advanced age, hx of dementia, severe aortic stenosis, and other comorbidities. risks discussed with Ashley - HCP s/p hernia repair 03/03/23 YEYO on CKD3 resolved with IVF likely from volume depletion due to vomiting from above Iron deficiency anemia H&H above transfusion threshold. H/H at baseline. drop overnight due to hemoconcentration on admission hold iron supplementation for now, can resume when tolerating po Dementia unspecified/mood disorder lexapro, Seroquel on hold until tolerating po Allergic rhinitis loratadine on hold continue home inhalers dvt ppx - SCD boots code status - MOLST form in chart DNR/DNI confirmed with HCP/POPatricia Ramirez at bedside attending - Dr. Jacob dispo: from the [place] - likely return when medically ready requires ongoing inpatient stay for management of SBO/hernia requiring surgical intervention and close monitoring given high risk for perioperative cardiopulmonary complications. Quality Stroke Does the patient have a stroke diagnosis?: No VTE Prior VTE?: No VTE Risk Level:: Medical - moderate - high VTE Device Contraindication: N/A - Device Ordered VTE Drug Contraindication: Treatment Not Indicated
[2023-03-04] MEDS: oxyCODONE HCl Immed Release 5 MG TABLET PO (13:52)
[2023-03-04 14:21] VITALS: BP 138/63; PULSE 80; O2SAT 98
[2023-03-04 15:43] VITALS: BP 124/57; PULSE 78; RESP 18; TEMP 35.9; O2SAT 94
[2023-03-04 20:00] VITALS: BP 131/63; PULSE 75; RESP 18; TEMP 35.8; O2SAT 95
[2023-03-04] MEDS: QUEtiapine Fumarate 25 MG TABLET 12.5 MG PO (21:04)
[2023-03-04] MEDS: Artificial Tears 15 ML DROPS 2 DROP EYE-BOTH (22:44)
[2023-03-05] VITALS (7 sets, daily range): BP systolic 99–148; BP diastolic 55–81; PULSE 76–91; RESP 16–20; TEMP 35.8–36.6; O2SAT 92–98
--- NOTE | 2023-03-05 07:51 | PM.PNGS ---
Subjective Subjective Date of Service: 03/05/23 Patient reports: no new complaints Interval history: The patient is seen in weekend coverage. The patient seems to be at his baseline. He is unreliable regarding history but there is a nursing report of a bowel movement yesterday, and this morning, there is odor of flatus or feces during the exam. Patient denies any abdominal pain and notes that he is hungry Physical Exam Vital Signs: Vital Signs: Last Vital Signs Temp 96.9 F 03/05/23 03:32 Pulse 90 03/05/23 03:32 Resp 20 03/05/23 03:32 BP 148/64 H 03/05/23 03:32 Pulse Ox 98 03/05/23 03:32 O2 Del Method Room Air 03/05/23 03:32 BMI result Body Mass Index 26.2 On exam, he is nontoxic He is having no respiratory distress His abdomen has some tympany but no rebound, rigidity, peritoneal sign As noted, it is not as like he has either passing flatus or had a bowel movement Objective Data Active Medications Acetaminophen (Acetaminophen Supp 650 Mg Supp.Rect) 650 mg [place] Q6H PRN PRN Reason: Pain, Mild (Pain Scale 1-3) Albuterol Sulfate (Albuterol Sulfate (0.083%) 2.5 Mg/3 Ml Vial.Neb) 2.5 mg INHALE Q4H PRN PRN Reason: Shortness of Breath Artificial Tears (Artificial Tears 15 Ml Drops) 2 drop EYE-BOTH TID [facility] Last Admin: 03/04/23 22:44 Dose: 2 drop Documented By: PIPER Escitalopram Oxalate (Escitalopram Oxalate 5 Mg Tablet) 5 mg PO DAILY [facility] Last Admin: 03/04/23 09:53 Dose: 5 mg Documented By: CHAR Fentanyl (Fentanyl Citrate/Pf 100 Mcg/2 Ml Vial) 25 mcg IVPUSH Q5M PRN; Protocol PRN Reason: Pain, Moderate(Pain Scale 4-6) Hydromorphone HCl (Hydromorphone Hcl 0.5 Mg/0.5 Ml Syringe) 0.25 mg IVPUSH Q5M PRN; Protocol PRN Reason: Pain, Severe (Pain Scale 7-10) Morphine Sulfate (Morphine Sulfate 4 Mg/Ml Cartridge) 2 mg IVPUSH Q4H PRN; Protocol PRN Reason: Pain, Severe (Pain Scale 7-10) Ondansetron HCl (Ondansetron Hcl 4 Mg/2 Ml Vial) 4 mg IVPUSH ONCE PRN PRN Reason: Nausea and Vomiting Quetiapine Fumarate (Quetiapine Fumarate 25 Mg Tablet) 12.5 mg PO BEDTIME [facility] Last Admin: 03/04/23 21:04 Dose: 12.5 mg Documented By: PIPER Sodium Chloride (0.9 % Sodium Chloride Flush 3 Ml Syringe) 3 ml IVFLUSH QSHIFT [facility] Last Admin: 03/04/23 21:05 Dose: 3 ml Documented By: PIPER Sodium Chloride (Sodium Chloride 0.65 % Nasal 44 Ml Sprbtl) 2 spray NOSTRIL-B Q4H PRN PRN Reason: dryness Labs 03/03/23 07:39 03/03/23 07:39 Procedures Date of Service Date of Service: 03/05/23 Progress Note: A&P Assessment and plan (1) Incarcerated right inguinal hernia: Status: Acute (2) Dementia: Status: Acute Plan Per nursing, the patient appears to be tolerating clear liquids. Advance his diet and, would recommend adding protein supplements if the patient is willing to take them. Dr. Chisholm will return 03/06/2023 to resume care. Time Spent With Patient Time: Total time managing care of this patient today ____ minutes. Quality Stroke Does the patient have a stroke diagnosis?: No VTE Prior VTE?: No VTE Risk Level:: Medical - moderate - high VTE Device Contraindication: N/A - Device Ordered VTE Drug Contraindication: Treatment Not Indicated
[2023-03-05] MEDS: 0.9 % Sodium Chloride Flush 3 ML SYRINGE IVFLUSH ×3 (08:53→20:20)
[2023-03-05] MEDS: Escitalopram Oxalate 5 MG TABLET PO (08:53)
[2023-03-05] MEDS: Artificial Tears 15 ML DROPS 2 DROP EYE-BOTH ×2 (08:53→15:12)
--- NOTE | 2023-03-05 12:02 | HO.PM.IMPN ---
Subjective Subjective Date of Service: 03/05/23 Interval History: follow up for SBO due to hernia denies abdominal pain, had to be re-oriented to place due to underlying dementia. no specific complaints Review of Systems Review of Systems: Yes all other systems are reviewed and are negative Constitutional Constitutional: Denies chills and Denies fever(s) Cardiovascular Cardiovascular: Denies chest pain, Denies palpitations and Denies dyspnea Respiratory Respiratory: Denies cough and Denies dyspnea Endocrine Endocrine: Denies palpitations Physical Exam Vital Signs: Vital Signs: Last Vital Signs Temp 97.9 F 03/05/23 11:34 Pulse 76 03/05/23 11:34 Resp 16 03/05/23 11:34 BP 117/59 L 03/05/23 11:34 Pulse Ox 95 03/05/23 11:34 O2 Del Method Room Air 03/05/23 11:34 BMI result Body Mass Index 26.2 Appearing in no acute distress lung sounds are clear to auscultation heart regular rate rhythm, clear S1, S2 positive bowel sounds, abdomen is soft, nontender neuro patient is alert, confused Objective Data Active Medications Acetaminophen (Acetaminophen Supp 650 Mg Supp.Rect) 650 mg ID Q6H PRN PRN Reason: Pain, Mild (Pain Scale 1-3) Albuterol Sulfate (Albuterol Sulfate (0.083%) 2.5 Mg/3 Ml Vial.Neb) 2.5 mg INHALE Q4H PRN PRN Reason: Shortness of Breath Artificial Tears (Artificial Tears 15 Ml Drops) 2 drop EYE-BOTH TID [facility] Last Admin: 03/05/23 08:53 Dose: 2 drop Documented By: MARCELINA Escitalopram Oxalate (Escitalopram Oxalate 5 Mg Tablet) 5 mg PO DAILY [facility] Last Admin: 03/05/23 08:53 Dose: 5 mg Documented By: MARCELINA Fentanyl (Fentanyl Citrate/Pf 100 Mcg/2 Ml Vial) 25 mcg IVPUSH Q5M PRN; Protocol PRN Reason: Pain, Moderate(Pain Scale 4-6) Hydromorphone HCl (Hydromorphone Hcl 0.5 Mg/0.5 Ml Syringe) 0.25 mg IVPUSH Q5M PRN; Protocol PRN Reason: Pain, Severe (Pain Scale 7-10) Morphine Sulfate (Morphine Sulfate 4 Mg/Ml Cartridge) 2 mg IVPUSH Q4H PRN; Protocol PRN Reason: Pain, Severe (Pain Scale 7-10) Ondansetron HCl (Ondansetron Hcl 4 Mg/2 Ml Vial) 4 mg IVPUSH ONCE PRN PRN Reason: Nausea and Vomiting Quetiapine Fumarate (Quetiapine Fumarate 25 Mg Tablet) 12.5 mg PO BEDTIME [facility] Last Admin: 03/04/23 21:04 Dose: 12.5 mg Documented By: PIPER Sodium Chloride (0.9 % Sodium Chloride Flush 3 Ml Syringe) 3 ml IVFLUSH QSHIFT [facility] Last Admin: 03/05/23 08:53 Dose: 3 ml Documented By: LESSARRan Sodium Chloride (Sodium Chloride 0.65 % Nasal 44 Ml Sprbtl) 2 spray NOSTRIL-B Q4H PRN PRN Reason: dryness Labs 03/03/23 07:39 03/03/23 07:39 Assessment and Plan (1) SBO (small bowel obstruction): Status: Acute (2) Incarcerated right inguinal hernia: Status: Acute (3) Dementia: Status: Acute Plan Patient is an 87-year-old male with PMH significant for TBI, dementia unspecified, CAD, aortic stenosis, CKD 3, Crohn's disease, allergic rhinitis, and iron deficiency anemia who [facility] for evaluation of vomiting and recent fall with question of head injury. Medical consult for preop clearance SBO secondary to obstructing right inguinal hernia echo obtained last admission - showing severe and probable MS. Should surgery be needed, pt will be at a significant risk for perioperative cardiopulmonary complications on the basis of advanced age, hx of dementia, severe aortic stenosis, and other comorbidities. risks discussed with Ashley - HCP s/p hernia repair 03/03/23 diet advanced to regular oob to chair PT consult pending YEYO on CKD3 resolved with IVF likely from volume depletion due to vomiting from above Iron deficiency anemia H&H above transfusion threshold. H/H at baseline. drop overnight due to hemoconcentration on admission hold iron supplementation for now, can resume when tolerating po Dementia unspecified/mood disorder lexapro, Seroquel on hold until tolerating po Allergic rhinitis loratadine on hold continue home inhalers dvt ppx - SCD boots code status - MOLST form in chart DNR/DNI confirmed with HCP/POPatricia Ramirez at bedside attending - Dr. Jacob dispo: from the [place] - likely return when medically ready requires ongoing inpatient stay for management of SBO/hernia requiring surgical intervention and close monitoring given high risk for perioperative cardiopulmonary complications. Quality Stroke Does the patient have a stroke diagnosis?: No VTE Prior VTE?: No VTE Risk Level:: Medical - moderate - high VTE Device Contraindication: N/A - Device Ordered VTE Drug Contraindication: Treatment Not Indicated
[2023-03-05] MEDS: QUEtiapine Fumarate 25 MG TABLET 12.5 MG PO (20:19)
[2023-03-06] VITALS: BP 111/51; PULSE 81; RESP 16; TEMP 36.1; O2SAT 92
[2023-03-06 04:00] VITALS: BP 117/58; PULSE 74; RESP 16; TEMP 36; O2SAT 93
[2023-03-06 08:00] VITALS: BP 149/73; PULSE 68; RESP 16; TEMP 36.1; O2SAT 97
[2023-03-06] MEDS: Artificial Tears 15 ML DROPS 2 DROP EYE-BOTH (09:32)
[2023-03-06] MEDS: Escitalopram Oxalate 5 MG TABLET PO (09:32)
--- NOTE | 2023-03-06 10:39 | PM.PNGS ---
Subjective Subjective Date of Service: 03/06/23 Interval history: Uneventful evening. Tolerating diet. Limited history secondary to patient's dementia Physical Exam Vital Signs: Vital Signs: Last Vital Signs Temp 96.9 F 03/06/23 08:00 Pulse 68 03/06/23 08:00 Resp 16 03/06/23 08:00 BP 149/73 H 03/06/23 08:00 Pulse Ox 97 03/06/23 08:00 O2 Del Method Room Air 03/06/23 08:00 BMI result Body Mass Index 26.2 GI: Other: Abdomen soft. Hernia wound site clean dry and intact. Objective Data Active Medications Acetaminophen (Acetaminophen Supp 650 Mg Supp.Rect) [address] Q6H PRN PRN Reason: Pain, Mild (Pain Scale 1-3) Albuterol Sulfate (Albuterol Sulfate (0.083%) 2.5 Mg/3 Ml Vial.Neb) 2.5 mg INHALE Q4H PRN PRN Reason: Shortness of Breath Artificial Tears (Artificial Tears 15 Ml Drops) 2 drop EYE-BOTH TID [facility] Last Admin: 03/06/23 09:32 Dose: 2 drop Documented By: MARCELINA Escitalopram Oxalate (Escitalopram Oxalate 5 Mg Tablet) 5 mg PO DAILY [facility] Last Admin: 03/06/23 09:32 Dose: 5 mg Documented By: MARCELINA Fentanyl (Fentanyl Citrate/Pf 100 Mcg/2 Ml Vial) 25 mcg IVPUSH Q5M PRN; Protocol PRN Reason: Pain, Moderate(Pain Scale 4-6) Hydromorphone HCl (Hydromorphone Hcl 0.5 Mg/0.5 Ml Syringe) 0.25 mg IVPUSH Q5M PRN; Protocol PRN Reason: Pain, Severe (Pain Scale 7-10) Morphine Sulfate (Morphine Sulfate 4 Mg/Ml Cartridge) 2 mg IVPUSH Q4H PRN; Protocol PRN Reason: Pain, Severe (Pain Scale 7-10) Ondansetron HCl (Ondansetron Hcl 4 Mg/2 Ml Vial) 4 mg IVPUSH ONCE PRN PRN Reason: Nausea and Vomiting Quetiapine Fumarate (Quetiapine Fumarate 25 Mg Tablet) 12.5 mg PO BEDTIME [facility] Last Admin: 03/05/23 20:19 Dose: 12.5 mg Documented By: SHON Sodium Chloride (0.9 % Sodium Chloride Flush 3 Ml Syringe) 3 ml IVFLUSH QSHIFT [facility] Last Admin: 03/06/23 09:32 Dose: Not Given Documented By: MARCELINA Non-Admin Reason: NO IV ACCESS' Sodium Chloride (Sodium Chloride 0.65 % Nasal 44 Ml Sprbtl) 2 spray NOSTRIL-B Q4H PRN PRN Reason: dryness Labs 03/03/23 07:39 03/03/23 07:39 Procedures Date of Service Date of Service: 03/06/23 Progress Note: A&P Assessment and plan (1) Incarcerated right inguinal hernia: Status: Acute Plan Doing well from a surgical perspective. Discharge planning per hospitalist Time Spent With Patient Time: Total time managing care of this patient today ____ minutes. Quality Stroke Does the patient have a stroke diagnosis?: No VTE Prior VTE?: No VTE Risk Level:: Medical - moderate - high VTE Device Contraindication: N/A - Device Ordered VTE Drug Contraindication: Treatment Not Indicated
--- NOTE | 2023-03-06 10:44 | MHC.CM.PN ---
Per ROUNDS discussion, Patient will be medically cleared for dc today to return to L[facility] at [facility], via [facility]. CM spoke with Patient's HCP/Ashley @ listed # and addressed the IMM with her, original will be mailed certified letter to Ashley and a copy has been placed on the chart.KEREN spoke with [facility] @ [phone], who approved Patient's return and the dc summary will be faxed to [facility] @ [phone], as soon as it is available.
--- NOTE | 2023-03-06 11:03 | P.DS_ITS ---
DS: Providers Provider Date of Service: 03/06/23 Date of admission: 03/02/23 16:59 Primary care physician: Tatum Bunn NP Consults: 03/02/23 16:59 Consult to General Surgery Routine Consulting Provider: [facility] [place] General Surgeons Reason for consultation: sbo due to hernia Has provider been notified: Yes DS: Diagnosis Discharge Diagnosis (1) Incarcerated right inguinal hernia: Status: Acute DS: Summary Hospital Course Hospital Course: This is an 87 year old male with history of dementia, severe , recent admission for SBO due to hernia who presents for vomiting. CT scan showing right inguinal hernia containing a loop of small bowel with proximal small-bowel obstruction. He was admitted in December under similar circumstances and at that time he was treated conservatively and improved. At that time he was evaluated by Cardiology who deemed him to be high risk due to multiple comorbidities including severe aortic stenosis and mitral stenosis. He was evaluated by General surgery in the emergency department and his hernia was able to be reduced. He was also noted to have YEYO with creatinine of 1.53. Plan to admit to medical service with procedure tomorrow under MAC. 87-year-old man treated for small bowel obstruction with subsequent incarcerated hernia. He is status post hernia repair on 03/03/2023. Surgery was unremarkable. Version patient has a history of severe dementia and unable to get any accurate history from the patient but he has remained hemodynamically stable, diet was advanced to regular and patient has done well. [facility] the plan is for him to return there and he may do physical therapy there if he needs to. h He developed YEYO and CKD stage 3 that resolved with IV fluids.He needs to follow-up with surgery in 1 week for follow- up appointment. Deficiency anemia. Upper transfusion threshold during hospitalization. History of dementia. Continue Lexapro, Seroquel Time Attestation Discharge coordination time: Greater than 30 minutes Quality: Safe Use of Opioids Does Pt have an Active Cancer Diagnosis on the Problem List?: No Quality: Stroke Does the patient have a stroke diagnosis?: No Physical Exam Vital Signs: Vital Signs: Last Vital Signs Temp 96.9 F 03/06/23 08:00 Pulse 68 03/06/23 08:00 Resp 16 03/06/23 08:00 BP 149/73 H 03/06/23 08:00 Pulse Ox 97 03/06/23 08:00 O2 Del Method Room Air 03/06/23 08:00 BMI result Body Mass Index 26.2 Appearing in no acute distress head is normocephalic atraumatic eyes pupils are PERRLA sclera is anicteric mouth throat mucous membranes are intact and moist neck is supple no lymphadenopathy, no JVD noted lung sounds are clear to auscultation heart regular rate rhythm, clear S1, S2 positive bowel sounds, abdomen is soft, nontender neuro patient is alert x3, no focal deficits Dsg to lower abd Discharge Plan Discharge Anticipated Discharge Date/Time: 03/06/23 10:21 Patient Disposition: Xfer LTC Discharge Diagnosis: Small-bowel obstruction YEYO on CKD Referrals: [facility] [Outside] - 1 Week Enrrique Chisholm MD [Physician] - 1 Week Tatum Bunn NP [Primary Care Provider] - 1 Week Discharge Medications: Continued guaifenesin 100 mg/5 mL Liquid 200 mg PO Q4H PRN (Reason: Cough) magnesium hydroxide 400 mg/5 mL Suspension 30 ml PO BEDTIME PRN (Reason: Constipation) cyanocobalamin (vitamin B-12) 500 mcg Tablet 500 mcg PO DAILY sodium chloride 0.65 % Aerosol,[place] 2 spray INTRANASAL Q4H PRN (Reason: dryness) quetiapine [Seroquel] 25 mg Tablet 12.5 mg PO BEDTIME albuterol sulfate 2.5 mg /3 mL (0.083 %) Solution For Nebulization 2.5 mg INHALATION Q4H PRN (Reason: SOB) ferrous sulfate 325 mg (65 mg iron) Tablet 325 mg PO BID alum-mag hydroxide-simeth 200-200-20 mg/5 mL Suspension 30 ml PO QID PRN (Reason: GI UPSET/HEARTBURN) Rx Instructions: administer between meals and at bedtime escitalopram oxalate [Lexapro] 5 mg Tablet 5 mg PO DAILY cholecalciferol (vitamin D3) 25 mcg (1,000 unit) Tablet 25 mcg PO DAILY loratadine 10 mg Capsule 10 mg PO DAILY carboxymethylcellulose sodium 1 % Drops 2 drp ophthalmic (eye) TID loperamide 2 mg tablet 2 mg PO TID PRN (Reason: Diarrhea) Rx Instructions: administer after each loose stool until symptoms controlled; do not exceed 8 mg per 24 hrs acetaminophen 325 mg capsule 650 mg PO Q4H PRN (Reason: pain or fever) bisacodyl 5 mg tablet 10 mg PO BEDTIME Fleet Enema 19-7 gram/118 mL enema [address] DAILY PRN (Reason: Constipation) Discharge Orders: Discharge Order (Routine); Ordered 03/06/23 Ordered By: Bailey Etienne Diet: Advance to usual diet Activity on Discharge: As tolerated Stand Alone Forms: Patient Portal Discharge page Activity Restrictions/Additional Instructions: Remove outside dressing only. Leave Steri-Strips intact. No strenuous activities Care Plan Goals: complete resolution of symptoms Health Concerns: Small-bowel obstruction Incarcerated right inguinal hernia, status post open right inguinal hernia repair YEYO on CKD Plan of Treatment: Follow-up with general surgery in 1 week Assessment: See discharge summary Patient Instructions: Inguinal Hernia Repair (DC)
--- NOTE | 2023-03-06 11:43 | MHC.CM.PN ---
SIGNED dc summary has been faxed to [facility] @ [facility] @ fax # [phone].
== END 2023-03-06 13:43 | DRG 351 ==
LOC: HO.ED 14:31 → HO.EDOVER 17:06 → HO.IMC 17:38
PROVIDERS: Physician Assistant; Surgery; Admitting Provider Physician Assistant Medical; Emergency Provider Emergency Medicine Emergency Medical Services; PCP Nurse Practitioner; Visit Provider Nurse Practitioner Acute Care
PROC: 0YU50JZ Supplement Right Inguinal Region with Synthetic Substitute, Open Approach (ICD-10-PCS; principal; 2023-03-03 14:10)
DX: K40.30 Unilateral inguinal hernia, with obstruction, without gangrene, not specified as recurrent (principal); F03.93 Unspecified dementia, unspecified severity, with mood disturbance; N17.9 Acute kidney failure, unspecified; I08.0 Rheumatic disorders of both mitral and aortic valves; Z66 Do not resuscitate; J30.9 Allergic rhinitis, unspecified; N18.30 Chronic kidney disease, stage 3 unspecified; D50.9 Iron deficiency anemia, unspecified; D63.1 Anemia in chronic kidney disease; Z87.820 Personal history of traumatic brain injury; Z79.899 Other long term (current) drug therapy
CPT/HCPCS: 36415; 74178; 80048; 80053; 83735; 85025; 85027; 85610; 86850; 86870; 86900; 86901; 86902; 86905; 86920; 86922; 97163; 99024; 99285; C1781; J0131; J0665; J0690; J2250; J2371; J2704; J3010; J7120; Q9967

== ENCOUNTER → 2023-03-02 08:15 | Outpatient (BNV) | payer MEDICARE, SELFPAY | PROVIDERS: Emergency Provider Emergency Medicine Emergency Medical Services; PCP Nurse Practitioner; Visit Provider Surgery | DX: K40.30 Unilateral inguinal hernia, with obstruction, without gangrene, not specified as recurrent (principal); K56.609 Unspecified intestinal obstruction, unspecified as to partial versus complete obstruction | CPT/HCPCS: 49507; 99222 ==

== ENCOUNTER → 2023-03-02 16:59 | Outpatient (BNV) | payer MEDICARE, SELFPAY | PROVIDERS: Admitting Provider Physician Assistant Medical; Emergency Provider Emergency Medicine Emergency Medical Services; PCP Nurse Practitioner; Visit Provider Physician Assistant Medical | DX: K40.30 Unilateral inguinal hernia, with obstruction, without gangrene, not specified as recurrent (principal) | CPT/HCPCS: 99223; 99232; 99239 ==

== ENCOUNTER 2023-03-08 11:25 | Outpatient (AMB) | payer MEDICARE, SELFPAY ==
--- NOTE | 2023-03-08 11:26 | HO.VETSHOME ---
Intake Intake Visit Reasons: NEW PATIENT, prostate cancer Wharf Attendant Required: No Allergies No Known Allergies Allergy (Verified 03/08/23 23:45) Medication List - Last Reconciled 03/08/23 by TORI Whitley acetaminophen 650 mg PO Q4H PRN albuterol sulfate 2.5 mg inhalation Q4H PRN alum-mag hydroxide-simeth 200-200-20 mg/5 mL 30 mL PO QID PRN bisacodyl 10 mg PO BEDTIME carboxymethylcellulose sodium 1% 2 drps ophthalmic (eye) TID cholecalciferol (vitamin D3) 25 mcg PO DAILY cyanocobalamin (vitamin B-12) 500 mcg PO DAILY escitalopram oxalate (Lexapro) 5 mg PO DAILY ferrous sulfate 325 mg PO BID guaifenesin 200 mg PO Q4H PRN loperamide 2 mg PO TID PRN loratadine 10 mg PO DAILY magnesium hydroxide 30 mL PO BEDTIME PRN quetiapine (Seroquel) 12.5 mg PO BEDTIME sodium chloride 0.65% 2 sprays intranasal Q4H PRN sodium phosphates 19-7 gram/118 mL (Fleet Enema) 118 mL MO DAILY PRN HPI HPI Comments History of Present Illness Details Bryn is a very pleasant 87-year-old male patient of who resides at [facility]. He has a past medical history of dementia, Crohn's disease, nonrheumatic aortic valve stenosis, iron deficiency anemia, depression, hyperlipidemia, ulcerative colitis, hypertension, chronic kidney disease stage 3, prostate cancer, inguinal hernia repair, and allergic rhinitis. He is being follow-up on today as a new patient for his history of malignant neoplasm of the prostate. In review of patient's chart it appears he had been following up with [facility] however given generalized weakness getting out into the community practice is difficult therefore [place] [facility] consult is appreciated. It appears he underwent XRT in 1998. However, patient has been having rising PSAs. PSAs are as follows: 11/15--11.7 06/16--8.9 01/16--12.9 Patient is a poor historian therefore obtaining history is difficult. Unable to perform OMID at this time as patient status post hernia repair and unable to position change appropriately at this time for OMID. Nursing offers no urological concerns at this time. In discussion with the patient today he denies any bothersome urinary issues or concerns. [facility] Medical History Nonrheumatic aortic (valve) stenosis Reducible right inguinal hernia Small bowel obstruction Dementia Social History Household Members: Other Household Members Other:: From [facility] Housing: [facility] Unable to assess alcohol history related to: Unknown Alcohol intake: former Patient Tobacco Use Status: Former Tobacco user Advance Directives Date on File: 03/03/22 service: Yes Review of Systems Const Reports as per HPI Eyes Reports no additional complaints ENT Reports no additional complaints Card Reports as per [facility] Resp Reports no additional complaints GI Reports as per HPI Reports as per [facility] Musc Reports as per [facility] Neuro Reports as per HPI Psych Reports as per HPI Endo Reports no additional complaints Physical Exam Const General: cooperative, healthy appearing, comfortable, no acute distress, well developed, alert and awake Orientation/consciousness: oriented to person Limitations: other limitations (Recliner) HEENT Head: Yes normal to inspection Eyes General: appearance normal, both eyes and all related structures Neck Neck: Yes normal visual inspection Chest Chest palpation & inspection: normal inspection of the chest Resp Effort & Inspection: normal respiratory effort and able to speak in complete sentences Cardio Rate: regular rate GI Other: Patient status post inguinal hernia repair Inspection: Yes normal to inspection General: Yes deferred Neuro General: oriented to person Extrem General: Yes normal to inspection Psych Appearance: well kempt Speech and movement: Clear speech present Attitude: cooperative Insight: Limited insight present (Psych) Judgement: Limited judgement present (Psych) Assessment & Plan Assessment & Plan (1) Prostate cancer: Code(s): C61 - Malignant neoplasm of prostate (2) Rising PSA following treatment for malignant neoplasm of prostate: Code(s): R97.21 - Rising PSA following treatment for malignant neoplasm of prostate Plan Recommended the possibility of checking PSA in 2-4 months as PSA is increased however not as high as it has been prior. OR Recommendations were made for; Bone scan for further assessment evaluation. Start bicalutamide 50 mg daily. Follow-up in office in 2-4 weeks in office for GnRH injection; or sooner with any issues, concerns, and or questions Patient Instructions: The patient had an opportunity to ask questions regarding the treatment plan. All questions were answered. Physical exam, labs, and imaging were discussed and reviewed in detail. As well as risks, benefits, and discussion of treatment choices. No major barriers to understanding were identified. The patient expressed understanding and agreement with the above treatment plan. The patient was made aware they should contact our office by phone for worsening of their current condition, the appearance of new symptoms, or with any questions or concerns. Compliance is encouraged with any medications and follow up testing that is ordered. It is a privilege to be allowed the opportunity to participate in? your urological care.? Again, if you have any questions or concerns If you have any questions or concerns please do not hesitate to contact me. The office is [phone]. This note is constructed using voice recognition software. While every effort has been made to ensure accuracy medical transcriptionist errors may have been included. Yours sincerely, TORI Whitley Coding Level of Care Code 81980-[id number] Fac initial, mod Diagnoses Prostate cancer C61 Rising PSA following treatment for malignant neoplasm of prostate R97.21 Time Spent (min) 35
--- OUTSIDE RECORDS SUMMARY | 2023-03-08 11:27 | XMS_ITS | Patient Health Record ---
Author Name Unknown [facility] Address [address] [place] [address] Care Team Providers Care Cassandra Consultant Name Role Phone Keyon Serrano Primary Care Provider Palmer Mckeon Unavailable [phone] ALLERGIES No Known Allergies REASON FOR REFERRAL [...] Not-Taking hydrOXYzine HCl 25 MG Orally Active [place] Cough Drops Ac tive Furosemide 20mg Acti [...] Risk SNOMED Code Notes Problem Atherosclerosis of [place] artery of both lower extremities, with unspecified presence of clinical manifestation (I70.203) Active confirmed [id number] VITAL SIGNS Height 5 ft 7 in in 09/01/2022 Weight 177 lbs 09/01/2022 BMI 27.72 kg/m2 09/01/2022 PROCEDURES Procedure Date Ordered Date Performed Result Body Sit e 09409-CYWZGIF NAIL, 6 OR MORE 09/01/2022 N/A 76104-OAME SKIN LESIONS, 2 TO 4 09/01/2022 N/A Encounters Encounter [facility] Date [facility] [address] 09/01/2022 Palmer Perez Atherosclerosis of [place] artery of both lower extremities, with unspecified presence of clinical manifestation I70.203 ; Tinea unguium B35.1 ; Pain in right toe(s) M79.674 and Pain in left toe(s) M79.675 [facility] [address] 02/14/2023 [facility] [address] [address] 02/27/2023 Palmer Perez ASSESSMENTS Encounter Date Diagnosis Assessment Notes Treatment Notes Treatment Clinical Notes 09/01/2022 Tinea unguium (ICD-1 0 - B35.1) 09/01/2022 Atherosclerosis of [place] artery of both lower extremities, with unspecified presence of clinical manifestation (ICD-10 - I70.203) 09/01/2022 Pain in right toe(s) (ICD-10 - M79.674) 09/01/2022 Pain in left toe(s) (ICD-10 - M79.675) PLAN OF TREATMENT Pending Test Test Name Order Date X ray : Ankle, left 3V 05/19/2011 53342-ADBZLAG NAIL, 6 OR MORE 05/19/2011 53542-USMCGDX NAIL, 6 OR MORE 07/21/2011 24881-XOKSBBE NAIL, 6 OR MORE 02/03/2012 95704-WEWRUWD NAIL, 6 OR MORE 04/05/2012 95282-NPQTXQU NAIL, 6 OR MORE 07/05/2012 66663-FWZHTMB NAIL, 6 OR MORE 11/01/2012 79163-TQSVQVO NAIL, 6 OR MORE 02/15/2013 20388-CFSGYYF NAIL, 6 OR MORE 05/17/2013 70022-EWGAMVH NAIL, 6 OR MORE 08/13/2013 10186-CDLVESI NAIL, 6 OR MORE 12/03/2013 95084-PQEBKGV NAIL, 6 OR MORE 09/22/2011 95657-KZJVLJC NAIL, 6 OR MORE 03/07/2014 84330-IQAAEAF NAIL, 6 OR MORE 10/13/2014 20034-PPDJEYT NAIL, 6 OR MORE 01/13/2015 95580-ZQOVBDC NAIL, 6 OR MORE 04/17/2015 07705-XLNAPYU NAIL, 6 OR MORE 07/24/2015 43520-GGXSUOI NAIL, 6 OR MORE 10/23/2015 93323-TGNKDOR NAIL, 6 OR MORE 01/29/2016 17370-VOVUCJB NAIL, 6 OR MORE 04/29/2016 84345-ZONVOWH NAIL, 6 OR MORE 07/29/2016 31329-PJTULXA NAIL, 6 OR MORE 11/04/2016 81849-UBBWXCQ NAIL, 6 OR MORE 02/27/2017 79698-NYXFDHO NAIL, 6 OR MORE 05/09/2017 75345-VPYEBLL NAIL, 6 OR MORE 07/14/2017 75027-BZBWCRR NAIL, 6 OR MORE 09/15/2017 57689-WYEDUYQ NAIL, 6 OR MORE 12/01/2017 39035-BJDQHKF NAIL, 6 OR MORE 02/23/2018 67932-DRCNQOC NAIL, 6 OR MORE 05/11/2018 50740-GBCBYXW NAIL, 6 OR MORE 07/20/2018 63266-MVFQLUU NAIL, 6 OR MORE 10/12/2018 07580-PDMTACM NAIL, 6 OR MORE 01/01/2019 34722-QFPIJMT NAIL, 6 OR MORE 12/31/2019 13481-DFXJMQH NAIL, 6 OR MORE 07/24/2020 21487-CPBRPAX NAIL, 6 OR MORE 11/03/2020 25977-BANAEAL NAIL, 6 OR MORE 01/12/2021 86414-SDMPANA NAIL, 6 OR MORE 03/29/2021 09748-YBARCCS NAIL, 6 OR MORE 07/12/2021 33597-UGKYXBV NAIL, 6 OR MORE 12/13/2021 36178-DDLGWAA NAIL, 6 OR MORE 09/01/2022 56192-AYDSPCV NAIL, 6 OR MORE 07/14/2014 83576-ZWRIGVW NAIL, 6 OR MORE 11/24/2011 89287-Zjrwlcjz Plate 02/03/2012 04431-Zeglynkx Plate 07/21/2011 88634-HJYV SKIN LESIONS, 2 TO 4 05/17/19 14 65157-SXGF SKIN LESIONS, 2 TO 4 02/16/20 13 21260-WOHM SKIN LESIONS, 2 TO 4 11/02/19 13 09038-WQFV SKIN LESIONS, 2 TO 4 07/24/19 16 45673-JFUE SKIN LESIONS, 2 TO 4 04/17/19 16 96017-WZMP SKIN LESIONS, 2 TO 4 01/14/20 15 46240-KYOC SKIN LESIONS, 2 TO 4 10/14/19 15 64004-PQGV SKIN LESIONS, 2 TO 4 03/07/20 14 81023-YJHU SKIN LESIONS, 2 TO 4 12/04/19 14 98848-EAAA SKIN LESIONS, 2 TO 4 08/14/19 14 47607-XVDP SKIN LESIONS, 2 TO 4 07/25/19 21 20892-NRXB SKIN LESIONS, 2 TO 4 12/31/19 20 91153-WESO SKIN LESIONS, 2 TO 4 01/02/20 19 91782-JZZB SKIN LESIONS, 2 TO 4 10/13/19 19 02226-LCOI SKIN LESIONS, 2 TO 4 07/21/19 19 05675-SSAL SKIN LESIONS, 2 TO 4 05/11/19 19 52603-CYJW SKIN LESIONS, 2 TO 4 02/24/20 18 00506-FPGV SKIN LESIONS, 2 TO 4 12/02/19 18 01139-ZIGU SKIN LESIONS, 2 TO 4 09/16/19 18 81781-HBCK SKIN LESIONS, 2 TO 4 07/15/19 18 93296-LBXJ SKIN LESIONS, 2 TO 4 05/09/19 18 29873-DSLV SKIN LESIONS, 2 TO 4 02/28/20 17 02578-JWLN SKIN LESIONS, 2 TO 4 11/05/19 17 27324-APJN SKIN LESIONS, 2 TO 4 04/29/19 17 97659-RZVC SKIN LESIONS, 2 TO 4 07/30/19 17 53603-ZDTW SKIN LESIONS, 2 TO 4 01/29/20 16 00789-PPRX SKIN LESIONS, 2 TO 4 10/23/19 16 08636-ZOIK SKIN LESIONS, 2 TO 4 07/15/19 15 63261-IHDT SKIN LESIONS, 2 TO 4 09/02/19 23 84021-DJNU SKIN LESIONS, 2 TO 4 12/14/19 22 01356-TFNA SKIN LESIONS, 2 TO 4 07/13/19 22 66263-XVXW SKIN LESIONS, 2 TO 4 03/29/19 22 69283-BPBL SKIN LESIONS, 2 TO 4 01/13/20 21 78183-UERV SKIN LESIONS, 2 TO 4 11/04/19 21 68369-YDWD SKIN LESION 11/24/2011 38644-SXCA SKIN LESION 09/22/2011 87008-XTFC SKIN LESION 07/05/2012 21792-HEGI SKIN LESION 04/05/2012 58353-RBIP SKIN LESION 02/03/2012 Insurance Providers Payer Name Payer Address Payer Phone Subscriber Number Group Number Insured Name Patient Relationship to Insured Coverage Start Date Coverage End Date Medicare National Govt Sv[employer] [address] [place] [address] [id number] Bryn Woo Self - patient [facility] the [facility] [address] [place], [place] [address] [id number] Bryn Woo Self - patient is the insured MEDICAL (GENERAL) HISTORY Medical History History ICD Code hypertension transfusions Hiatal hernia cataracts back, hip, knee pain Cholesterol ASO/PVD Arthritis - Degenerative Surgical History Surgery Date(Month/Year) head surgery 2008 neck surgery 2008 Hernia repair 04/11/2012 teeth extraction Hospitalization History Reason Date(Month/Year) [facility]- 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 12/2012 [facility] for testing 06/07/2012 [place] for 2 weeks 03/2012
== END 2023-03-08 16:00 ==
LOC: HO.HUSV 11:25
PROVIDERS: PCP Nurse Practitioner; Visit Provider Nurse Practitioner Family
DX: C61 Malignant neoplasm of prostate (principal); R97.21 Rising PSA following treatment for malignant neoplasm of prostate
CPT/HCPCS: 99305

== ENCOUNTER 2023-03-14 09:13 | Outpatient (AMB) | payer MEDICARE, SELFPAY ==
[2023-03-14 09:22] VITALS: BP 123/57; PULSE 78
--- NOTE | 2023-03-14 09:22 | A.OFFVIS_ITS ---
Intake Vital Signs 03/14/23 09:22 Weight 167 lb BP 123/57 L Blood Pressure Location Rt brachial Position Sitting Pulse 78 Intake Visit Reasons: s/p right inguinal herniorrhaphy Intake Note: Patient here s/p Rt inguinal herniorrhaphy on 03-03-23. Patient states incision healing well. 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 Patient is quite sleepy but they say he is tolerating a diet and having regular bowel habits. No wound issues. PFSH Medical History Nonrheumatic aortic (valve) stenosis Reducible right inguinal hernia Small bowel obstruction Dementia Social History Household Members: Other Household Members Other:: From [place] Housing: Long-Term Unable to assess alcohol history related to: Unknown Alcohol intake: former Patient Tobacco Use Status: Former Tobacco user Advance Directives Date on File: 03/03/22 service: Yes Physical Exam Vital Signs: Last Vital Signs Pulse 78 03/14/23 09:22 BP 123/57 L 03/14/23 09:22 GI Other: Abdomen soft. Incision clean dry and intact healing uneventfully. Assessment & Plan Assessment & Plan (1) Status post right inguinal hernia repair, follow-up exam: Code(s): Z09 - Encounter for follow-up examination after completed treatment for conditions other than malignant neoplasm Plan Paperwork was filled out. Patient will follow-up p.r.n.. No strenuous activities. All questions answered Coding Level of Care Code Global (25479) Diagnoses Status post right inguinal hernia repair, follow-up exam Z09
== END 2023-03-14 09:28 | disposition home or self-care (01) ==
PROVIDERS: PCP Nurse Practitioner; Visit Provider Surgery
DX: Z09 Encounter for follow-up examination after completed treatment for conditions other than malignant neoplasm (principal)
CPT/HCPCS: 99024

== ENCOUNTER → 2023-03-14 09:13 | Outpatient (BNVA) | payer MEDICARE, SELFPAY | PROVIDERS: PCP Nurse Practitioner; Visit Provider Surgery | DX: Z48.815 Encounter for surgical aftercare following surgery on the digestive system (principal); Z98.890 Other specified postprocedural states | CPT/HCPCS: 99212 ==

== ENCOUNTER 2023-04-14 10:12 | Outpatient (AMB) | payer MEDICARE, SELFPAY ==
--- OUTSIDE RECORDS SUMMARY | 2023-04-14 10:15 | XMS_ITS | Patient Health Record ---
Author Name Unknown [facility] Address [address] [place] [address] Care Team Providers Care Gear Straightener Name Role Phone Keyon Serrano Primary Care Provider Palmer Mckeon Unavailable [phone] ALLERGIES No Known Allergies REASON FOR REFERRAL [...] Not-Taking hydrOXYzine HCl 25 MG Orally Active [place] Cough Drops Ac tive Furosemide 20mg Acti [...] Risk SNOMED Code Notes Problem Atherosclerosis of [place] artery of both lower extremities, with unspecified presence of clinical manifestation (I70.203) Active confirmed [id number] VITAL SIGNS Height 5 ft 7 in in 09/01/2022 Weight 177 lbs 09/01/2022 BMI 27.72 kg/m2 09/01/2022 PROCEDURES Procedure Date Ordered Date Performed Result Body Sit e 63355-DHIQDNP NAIL, 6 OR MORE 09/01/2022 N/A 24475-DWCK SKIN LESIONS, 2 TO 4 09/01/2022 N/A Encounters Encounter [facility] Date [facility] [address] 09/01/2022 Palmer Perez Atherosclerosis of [place] artery of both lower extremities, with unspecified presence of clinical manifestation I70.203 ; Tinea unguium B35.1 ; Pain in right toe(s) M79.674 and Pain in left toe(s) M79.675 [facility] [address] 02/14/2023 [facility] [address] [address] 02/27/2023 Palmer Perez ASSESSMENTS Encounter Date Diagnosis Assessment Notes Treatment Notes Treatment Clinical Notes 09/01/2022 Tinea unguium (ICD-1 0 - B35.1) 09/01/2022 Atherosclerosis of [place] artery of both lower extremities, with unspecified presence of clinical manifestation (ICD-10 - I70.203) 09/01/2022 Pain in right toe(s) (ICD-10 - M79.674) 09/01/2022 Pain in left toe(s) (ICD-10 - M79.675) PLAN OF TREATMENT Pending Test Test Name Order Date X ray : Ankle, left 3V 05/19/2011 22861-HLYLARX NAIL, 6 OR MORE 05/19/2011 32613-WAKSVIQ NAIL, 6 OR MORE 07/21/2011 74105-RSNRDUF NAIL, 6 OR MORE 11/24/2011 98041-TUIYFJS NAIL, 6 OR MORE 02/03/2012 11032-IZNSOWJ NAIL, 6 OR MORE 04/05/2012 11739-LEOSMZW NAIL, 6 OR MORE 07/05/2012 40081-YDVXRGQ NAIL, 6 OR MORE 11/01/2012 64969-DRDNRHH NAIL, 6 OR MORE 02/15/2013 52623-IFCFZEF NAIL, 6 OR MORE 05/17/2013 69310-UGIRULG NAIL, 6 OR MORE 08/13/2013 22426-IFKNBKH NAIL, 6 OR MORE 12/03/2013 84212-IBZSMPH NAIL, 6 OR MORE 09/22/2011 68345-SHVYDPV NAIL, 6 OR MORE 03/07/2014 77675-WRPXGTA NAIL, 6 OR MORE 07/14/2014 66898-XUKUXWO NAIL, 6 OR MORE 10/13/2014 09005-IJZPHWZ NAIL, 6 OR MORE 01/13/2015 90579-WTUTIMV NAIL, 6 OR MORE 04/17/2015 06458-TPZTPOK NAIL, 6 OR MORE 07/24/2015 00721-BZYHMKZ NAIL, 6 OR MORE 10/23/2015 10822-VXBFOKN NAIL, 6 OR MORE 01/29/2016 16804-CFSFIPC NAIL, 6 OR MORE 04/29/2016 38634-JOMZGQM NAIL, 6 OR MORE 07/29/2016 78210-AXNGHRC NAIL, 6 OR MORE 11/04/2016 86753-CYABPOX NAIL, 6 OR MORE 02/27/2017 64115-FQWUAHL NAIL, 6 OR MORE 05/09/2017 54103-XNHCYGI NAIL, 6 OR MORE 07/14/2017 67145-SHCVYLM NAIL, 6 OR MORE 09/15/2017 39478-QTVVUTS NAIL, 6 OR MORE 12/01/2017 27024-GIIAOOJ NAIL, 6 OR MORE 02/23/2018 62669-VQJLNLF NAIL, 6 OR MORE 05/11/2018 42842-REUXPNL NAIL, 6 OR MORE 07/20/2018 17300-KMWTBQR NAIL, 6 OR MORE 10/12/2018 83968-WOKHEAT NAIL, 6 OR MORE 01/01/2019 09674-FBAQMSQ NAIL, 6 OR MORE 12/31/2019 56299-IRFMMIR NAIL, 6 OR MORE 07/24/2020 13077-WHLKPAN NAIL, 6 OR MORE 11/03/2020 19614-HUDGIIA NAIL, 6 OR MORE 01/12/2021 26707-JWFTXJU NAIL, 6 OR MORE 03/29/2021 11850-TNGVLHL NAIL, 6 OR MORE 07/12/2021 26385-MQHUXMU NAIL, 6 OR MORE 12/13/2021 06334-QHWRODS NAIL, 6 OR MORE 09/01/2022 12518-Wvmhhltt Plate 02/03/2012 73447-Esgffdmj Plate 07/21/2011 20413-IGVF SKIN LESIONS, 2 TO 4 02/16/20 13 15780-DPNR SKIN LESIONS, 2 TO 4 11/02/19 13 59431-PGIO SKIN LESIONS, 2 TO 4 01/14/20 15 75736-VMIS SKIN LESIONS, 2 TO 4 10/14/19 15 63013-UVTW SKIN LESIONS, 2 TO 4 07/15/19 15 45883-KRGD SKIN LESIONS, 2 TO 4 03/07/20 14 75595-YQWI SKIN LESIONS, 2 TO 4 12/04/19 14 76558-KWGF SKIN LESIONS, 2 TO 4 08/14/19 14 60821-GWIO SKIN LESIONS, 2 TO 4 05/17/19 14 22754-NEMH SKIN LESIONS, 2 TO 4 01/02/20 19 35532-ODWC SKIN LESIONS, 2 TO 4 10/13/19 19 33911-NUMR SKIN LESIONS, 2 TO 4 07/21/19 19 67999-SYNQ SKIN LESIONS, 2 TO 4 05/11/19 19 35041-VTPY SKIN LESIONS, 2 TO 4 02/24/20 18 16896-PAFB SKIN LESIONS, 2 TO 4 12/02/19 18 71696-NOSI SKIN LESIONS, 2 TO 4 09/16/19 18 85930-RUXB SKIN LESIONS, 2 TO 4 07/15/19 18 69919-SVAL SKIN LESIONS, 2 TO 4 05/09/19 18 61573-HIKD SKIN LESIONS, 2 TO 4 02/28/20 17 40888-IVNH SKIN LESIONS, 2 TO 4 11/05/19 17 26489-IYKT SKIN LESIONS, 2 TO 4 04/29/19 17 78138-WZIE SKIN LESIONS, 2 TO 4 07/30/19 17 94413-XLNR SKIN LESIONS, 2 TO 4 01/29/20 16 26996-NSXQ SKIN LESIONS, 2 TO 4 10/23/19 16 72376-QIRN SKIN LESIONS, 2 TO 4 07/24/19 16 61070-FLJW SKIN LESIONS, 2 TO 4 04/17/19 16 93398-CSIG SKIN LESIONS, 2 TO 4 09/02/19 23 14360-PBFU SKIN LESIONS, 2 TO 4 12/14/19 22 00050-IDNA SKIN LESIONS, 2 TO 4 07/13/19 22 17391-QZNJ SKIN LESIONS, 2 TO 4 03/29/19 22 90682-XSCL SKIN LESIONS, 2 TO 4 01/13/20 21 96553-DBVV SKIN LESIONS, 2 TO 4 11/04/19 21 66337-GGMI SKIN LESIONS, 2 TO 4 07/25/19 21 00874-QROG SKIN LESIONS, 2 TO 4 12/31/19 20 65308-HGMV SKIN LESION 09/22/2011 86060-BBLN SKIN LESION 07/05/2012 48393-DNYZ SKIN LESION 04/05/2012 66895-PEVG SKIN LESION 02/03/2012 73713-ITWH SKIN LESION 11/24/2011 Insurance Providers Payer Name Payer Address Payer Phone Subscriber Number Group Number Insured Name Patient Relationship to Insured Coverage Start Date Coverage End Date Medicare National Govt Svcs Inc [address] [place] [address] [id number] Bryn Woo Self - patient is the insured [facility] [address] [place], [place] [address] [id number] Bryn Woo Self - patient is the insured MEDICAL (GENERAL) HISTORY Medical History History ICD Code hypertension transfusions Hiatal hernia cataracts back, hip, knee pain Cholesterol ASO/PVD Arthritis - Degenerative Surgical History Surgery Date(Month/Year) head surgery 2008 neck surgery 2008 Hernia repair 04/11/2012 teeth extraction Hospitalization History Reason Date(Month/Year) [facility]- Fell/ dehydration 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 12/2012 [facility] for testing 06/07/2012 [place] for 2 weeks 03/2012
--- NOTE | 2023-04-14 10:16 | AM.OFFVISNUR ---
Intake Intake Visit Reasons: GnRH Allergies No Known Allergies Allergy (Verified 03/14/23 09:23) Office Meds Eligard (6 month) 45 mg (6 month) subcutaneous syringe Performing Provider: TORI Whitley [facility] Administered by: Vickie Poe RN on 04/14/23 10:16 Dose Route Admin Location Dispensed Lot Number Expiration Date [facility] Miner 45 mg subcut RLQ 45 mg [id number] 04/27/24 04906-794-67 [employer]. Coding Assessment & Plan Assessment & Plan Orders: Orders AMB Leuprolide Injection - Practice Supplied Today C61 - Malignant neoplasm of prostate
== END 2023-04-14 10:53 | disposition home or self-care (01) ==
LOC: HO.HUSH 10:13
PROVIDERS: PCP Nurse Practitioner; Visit Provider Nurse Practitioner Family
DX: C61 Malignant neoplasm of prostate (principal)

== ENCOUNTER → 2023-04-14 10:12 | Outpatient (BNVA) | payer MEDICARE, SELFPAY | PROVIDERS: PCP Nurse Practitioner; Visit Provider Nurse Practitioner Family | DX: C61 Malignant neoplasm of prostate (principal) | CPT/HCPCS: 96402; J9217 ==

== ENCOUNTER 2023-04-24 05:16 | Outpatient (REF) | payer MEDICARE, SELFPAY ==
[2023-04-24 06:09] LABS: MANUAL DIFF FLAG NO
[2023-04-24 06:11] LABS: Basophils Percent Auto 0.3 % (0-2); Eosinophils Absolute Auto 0.7 X10*3/uL (0.0-0.4); Eosinophils Percent Auto 9.2 % (0-4); Hematocrit 30.8 % (42.0-52.0); Hemoglobin 9.9 g/dl (14.0-18.0); Imm Gran Abs Auto 0.02 X10*3/uL (0.00-0.03); Imm Gran Pct Auto 0.3 % (0.0-0.4); Lymphocytes Absolute Auto 1.2 X10*3/uL (1.2-4.9); Mean Corpuscular HGB Conc 32.1 g/dl (31.0-36.0); Mean Corpuscular Hemoglobin 30.4 pg (27.0-33.0); Mean Corpuscular Volume 94.5 fL (80.0-98.0); Mean Platelet Volume 10.5 fL (9.4-12.4); Monocytes Absolute Auto 0.6 X10*3/uL (0.1-1.2); Monocytes Percent Auto 8.8 % (2-11); Neutrophils Absolute Auto 4.7 x10*3/uL (2.0-8.3); Neutrophils Percent Auto 65.4 % (45-73); Platelet Count 327 X10*3/uL (160-400); Red Blood Count 3.26 X10*6/uL (4.60-5.80); Red Cell Distribution Width 13.3 % (11.0-16.0); White Blood Count 7.2 X10*3/uL (4.8-10.8)
[2023-04-24 06:33] LABS: Alanine Aminotransferase 7 U/L (0-40); Albumin Level 3.1 g/dL (3.5-5.0); Alkaline Phosphatase 64 U/L (39-117); Anion Gap 14 (12-20); Aspartate Amino Transferase 12 U/L (5-37); Bilirubin Direct < 0.2 mg/dL (0.0-0.5); Bilirubin Total 0.2 mg/dL (0.0-1.0); Blood Urea Nitrogen 18 mg/dL (9-16); Calcium 8.4 mg/dL (8.4-10.2); Carbon Dioxide 23 mmol/L (22-29); Chloride 110 mmol/L (96-108); Estimated Glomerular Filt Rate 56; Glucose Random 110 mg/dL (60-115); Potassium 3.8 mmol/L (3.3-5.1); Sodium 143 mmol/L (135-145); Total Protein 6.3 g/dL (6.5-8.0)
[2023-04-24 06:48] LABS: Thyroid Stimulating Hormone 2.13 uIU/mL (0.32-4.0); Vitamin D 25-OH Total 31.3 ng/mL (>30)
[2023-04-24 06:52] LABS: Vitamin B12 687 pg/mL (200-900)
== END 2023-04-24 05:17 | disposition home or self-care (01) ==
LOC: HO.HSH3W 05:16
PROVIDERS: Visit Provider Nurse Practitioner Acute Care
DX: C61 Malignant neoplasm of prostate (principal); E53.8 Deficiency of other specified B group vitamins; E55.9 Vitamin D deficiency, unspecified
CPT/HCPCS: 36415; 80053; 82248; 82306; 82607; 84443; 85025

== ENCOUNTER 2023-05-22 03:47 | Inpatient (IN) | payer OTHER, MEDICARE, SELFPAY ==
[2023-05-22] VITALS (10 sets, daily range): BP systolic 123–181; BP diastolic 62–90; PULSE 71–95; RESP 16–21; TEMP 36.2–37.1; O2SAT 92–97; BMI 32.5
--- NOTE | ~2023-05-22 | CT_ITS ---
EXAMINATION: CT HEAD WITHOUT CONTRAST CLINICAL INFORMATION: Altered mental status. COMPARISON: 12/28/2022 TECHNIQUE: Contiguous axial imaging was performed from the skull base to vertex without intravenous administration of contrast. This CT examination was performed using dose optimization techniques as appropriate, variously including the following: *Automated exposure control *Adjustment of mA and/or kV according to patient size (this includes techniques or standardized protocols for targeted exams where dose is matched to indication/reason for exam; i.e. extremities or head) *Use of iterative reconstruction technique DLP: 688 mGy-cm FINDINGS: There is cerebral volume loss with prominence of the lateral and the third ventricles. The cortical sulci are widened appropriately. The fourth ventricle and basal cisterns are normally outlined. There is extensive bilateral periventricular and central white matter diminished attenuation. There is no acute territorial defect, hemorrhage or midline shift. The extra-axial spaces are unremarkable. Calvarium: Intact. Maxillofacial sinuses and mastoids: There is thickening of the maxillary sinuses. The mastoids are clear. CT/CT head/brain wo IV con IMPRESSION: Extensive bilateral periventricular and central white matter diminished attenuation. This is nonspecific, but could be related to chronic small vessel ischemic disease. There is cerebral volume loss with prominence. No acute intracranial abnormality.
--- NOTE | ~2023-05-22 | XR_ITS ---
EXAMINATION: XR CHEST CLINICAL INFORMATION: Wheezing. COMPARISON: 12/24/2022. TECHNIQUE: Frontal view of the chest was obtained. FINDINGS: The lung volumes are low. The cardiomediastinal silhouette is stable. There is bilateral mid to lower lung field increased markings and linear opacities at the lung bases. There are no significant pleural effusions. The bony structures are osteopenic. The soft tissues are unremarkable XR/XR chest 1V IMPRESSION: Low lung volumes. Bilateral mid to lower lung field increased markings and linear opacities at the lung bases likely represent atelectasis. A developing infiltrate cannot be excluded.
--- NOTE | 2023-05-22 04:31 | ED_ITS ---
HPI - Altered Mental Status General Chief Complaint: Altered Mental Status Stated Complaint: AMS Time Seen by Provider: 05/22/23 04:31 Source: RN notes reviewed Mode of arrival: EMS Limitations: altered mental status History of Present Illness HPI narrative: 87-year-old male with a history of dementia, Crohn's disease, nonrheumatic aortic stenosis, iron deficient anemia, depression, hyperlipidemia, ulcerative colitis, hypertension, who lives at the [facility] who was sent to the emergency department for altered mental status. Patient lacks insight as to why he is here in the emergency department. Triage note states that the patient woke up at around 02:30 hours. Per staff patient was not responding to questions which is different from his baseline. Triage nurse noted that the patient's right hand was red and swollen which could be consistent with cellulitis. Patient was also noted to wheezing on his lung exam. Related Data Home Medications Medication Instructions Recorded Confirmed albuterol sulfate 2.5 mg/3 mL 2.5 mg inhalation Q4H PRN SOB 12/28/22 03/02/23 (0.083 %) solution for nebulization aluminum-mag hydroxide-simethicone 30 ml PO QID PRN GI UPSET/HEARTBURN 12/28/22 03/02/23 200 mg-200 mg-20 mg/5 mL oral susp carboxymethylcellulose sodium 1 % 2 drp ophthalmic (eye) TID 12/28/22 03/02/23 eye drops cholecalciferol (vitamin D3) 25 25 mcg PO DAILY 12/28/22 03/02/23 mcg (1,000 unit) tablet escitalopram oxalate 5 mg tablet 5 mg PO DAILY 12/28/22 03/02/23 (Lexapro) ferrous sulfate 325 mg (65 mg 325 mg PO BID 12/28/22 03/02/23 iron) tablet loratadine 10 mg capsule 10 mg PO DAILY 12/28/22 03/02/23 quetiapine 25 mg tablet (Seroquel) 12.5 mg PO BEDTIME 12/28/22 03/02/23 acetaminophen 325 mg capsule 650 mg PO Q4H PRN pain or fever 01/19/23 03/02/23 bisacodyl 5 mg tablet 10 mg PO BEDTIME 01/19/23 03/02/23 loperamide 2 mg tablet 2 mg PO TID PRN Diarrhea 01/19/23 03/02/23 sodium phosphates 19 gram-7 118 ml IN DAILY PRN Constipation 01/19/23 03/02/23 gram/118 mL enema (Fleet Enema) cyanocobalamin (vitamin B-12) 500 500 mcg PO DAILY 03/02/23 03/02/23 mcg tablet guaifenesin 100 mg/5 mL oral liquid 200 mg PO Q4H PRN Cough 03/02/23 03/02/23 magnesium hydroxide 400 mg/5 mL 30 ml PO BEDTIME PRN Constipation 03/02/23 03/02/23 oral suspension sodium chloride 0.65 % nasal spray 2 spray intranasal Q4H PRN dryness 03/02/23 03/02/23 aerosol Allergies Allergy/AdvReac Type Severity Reaction Status Date / Time No Known Allergies Allergy Verified 03/14/23 09:23 Review of Systems 2 Review of Systems: Yes all other systems are reviewed and are negative [facility], [facility] Past Medical History FOR[facility], [facility] Narrative: Social history: Patient is a resident of the [facility] Medical History Nonrheumatic aortic (valve) stenosis Reducible right inguinal hernia Small bowel obstruction Dementia Social History Social History Household Members: Other Household Members Other:: From [facility] Housing: Correction Unable to assess alcohol history related to: Unknown Alcohol intake: former Patient Tobacco Use Status: Former Tobacco user Smoked in Last 30 Days: No Use of substances other than those prescribed or required for medical reasons: No Advance Directives: Yes Advance Directives on File: Yes Advance Directives Date on File: 03/03/22 service: Yes Physical Exam ED Vital Signs: Vital Signs - 24 hr 05/22/23 03:59 05/22/23 04:04 05/22/23 05:09 Temperature 98.7 F Pulse Rate 71 78 Respiratory Rate 20 16 Blood Pressure 148/72 H Pulse Oximetry 94 96 Oxygen Delivery Method Room Air Room Air 05/22/23 05:24 Temperature Pulse Rate 79 Respiratory Rate 16 Blood Pressure Pulse Oximetry Oxygen Delivery Method BMI result Body Mass Index 32.5 Vital signs revealed an elevated blood pressure of 148/72. Exam: General: Awake, alert in no distress, oriented to person only Head: Normocephalic, atraumatic EENT: PERRL, Lids normal, sclera normal, conjunctiva normal, nose normal , ears normal, throat without erythema or exudates Neck: Supple, no adenopathy Lung: breath sounds symmetric, diffuse wheezing wheezing, no rales or no rhonchi Chest: symmetric movement, nontender Heart: regular rate and rhythm, normal S1, S2 no murmurs or rubs Abdomen: soft, non-tender, nondistended, normal bowel sounds Back: no vertebral tenderness, no CVAT Extremities: no deformities, moves all extremities symmetrically, patient does have erythema and soft tissue swelling to his rate and Skin: no rashes, no lesion, normal color and warmth Neuro: Awake, alert, oriented to person only, slow to answer questions, cranial nerves intact, moves all extremities symmetrically Psych: Pleasant, cooperative Medications Administered Discontinued Medications Generic Name Dose Route Start Last Admin Trade Name Freq PRN Reason Stop Dose Admin Albuterol Sulfate 2.5 mg/ 5 mg 05/22/23 05:19 05/22/23 05:23 Albuterol Sulfate 2.5 mg INHALE 05/22/23 05:20 5 mg ONCE ONE Administration Albuterol Sulfate 2.5 mg/ 0 mg 05/22/23 05:04 05/22/23 05:07 Albuterol/Ipratropium 3 ml INHALE 05/22/23 05:05 2.5 dose ONCE ONE Administration Medical Decision Making Medical Decision Making MDM Narrative: 87-year-old male with a history of dementia, Crohn's disease, nonrheumatic aortic stenosis, iron deficient anemia, depression, hyperlipidemia, ulcerative colitis, hypertension, who lives at the [facility] who was sent to the emergency department for altered mental status. Patient lacks insight as to why he is here in the emergency department. Triage note states that the patient woke up at around 02:30 hours. Per staff patient was not responding to questions which is different from his baseline. Vital signs were unremarkable except for an elevated blood pressure. Patient was awake oriented to person did answer questions appropriately but lacks insight as to why he is here, patient was noted to have erythema and soft tissue swelling to his right hand, there is a black marker line around the area of erythema and the erythema extends just beyond the marked area. The patient is not on antibiotics since there were no providers on over the weekend at the [facility]-according to nursing staff. Lung exam did reveal diffuse wheezing, neurologic exam was nonfocal. 06:46 Differential diagnosis: ?Includes but is not limited to stroke, urinary tract infection, pneumonia, CHF electrolyte abnormality, anemia, cellulitis Following evaluation was ordered: CBC, CMP, urinalysis, lipase, troponin, BNP, COVID-19, influenza, RSV, chest x-ray one view, point of care glucose, lactic acid, blood cultures x2 Patient was initially treated with the following: Bronchodilator protocol Course: 06:46 My interpretation patient's laboratory evaluation is as follows: WBC was normal 8400 with normal differential. Anemia with an H&H of 10.7 and 33.2-this is chronic. BUN was elevated at 19, creatinine normal 1.15. BNP elevated 187. Troponin detectable but not elevated 11.6-will repeat at 07:00 hours. Urinalysis was positive for blood, positive for nitrates, 3+ positive leukocyte esterase. Urinalysis revealed 3-5 RBCs, greater than 50 WBCs trace bacteria- this was a straight cath specimen. COVID-19, influenza and RSV were negative. Chest x-ray did reveal increased interstitial marking. Given the patient's wheezing and elevated BNP I suspect that the patient may have mild CHF and not pneumonia. Patient was wheezing and did receive 2 nebulizer treatments, 5 mg albuterol mixed with 1 DuoNeb and 5 mg of albuterol with improvement of his wheezing. At this time, I believe that the patient's altered mental status at his nursing facility was probably due to a urinary tract infection versus cellulitis. The patient seems to be back to his baseline and is not altered, however think that he needs to be admitted to receive IV antibiotics. I did discuss the patient's admission over tiger text with the covering hospitalist, Dr. Marcelo. Lab Data 05/22/23 04:28 05/22/23 04:28 Labs: Lab Results 05/22/23 05/22/23 05/22/23 Range/Units 04:28 04:38 05:43 WBC 8.4 (4.8-10.8) X10*3/uL RBC 3.52 L (4.60-5.80) X10*6/uL Hgb 10.7 L (14.0-18.0) g/dl Hct 33.2 L (42.0-52.0) % MCV 94.3 (80.0-98.0) fL MCH 30.4 (27.0-33.0) pg MCHC 32.2 (31.0-36.0) g/dl RDW 13.1 (11.0-16.0) % Plt Count 311 (160-400) X10*3/uL MPV 9.7 (9.4-12.4) fL Immature Gran % (Auto) 0.4 (0.0-0.4) % Neut % (Auto) 71.6 (45-73) % Lymph % (Auto) 13.6 L (20-40) % Kay % (Auto) 9.1 (2-11) % Eos % (Auto) 5.2 H (0-4) % Baso % (Auto) 0.1 (0-2) % Lymph # (Auto) 1.1 L (1.2-4.9) X10*3/uL Kay # (Auto) 0.8 (0.1-1.2) X10*3/uL Eos # (Auto) 0.4 (0.0-0.4) X10*3/uL Baso # (Auto) 0.0 (0.0-0.2) X10*3/uL Abs Immat Gran (auto) 0.03 (0.00-0.03) X10*3/uL Absolute Neuts (auto) 6.0 (2.0-8.3) x10*3/uL Absolute Nucleated RBC 0.000 (0.0-0.012) X10*3/uL Nucleated RBC % (auto) 0.0 (0.0-0.2) /100WBC Sodium 140 (135-145) mmol/L Potassium 4.1 (3.3-5.1) mmol/L Chloride 106 (96-108) mmol/L Carbon Dioxide 27 (22-29) mmol/L Anion Gap 11 L (12-20) BUN 19 H (9-16) mg/dL Creatinine 1.15 (0.5-1.4) mg/dL Estim Creat Clear Calc 52.7 Estimated GFR > 60 POC Glucose 100 (60-115) mg/dL Random Glucose 104 (60-115) mg/dL Calcium 8.9 (8.4-10.2) mg/dL Total Bilirubin 0.2 (0.0-1.0) mg/dL AST 10 (5-37) U/L ALT 6 (0-40) U/L Alkaline Phosphatase 67 (39-117) U/L Troponin I High Sens 11.6 D (<3.5-35.0) ng/L B-Natriuretic Peptide 187 H (<100) pg/mL Total Protein 7.0 (6.5-8.0) g/dL Albumin 3.4 L (3.5-5.0) g/dL Lipase 26 (8-78) U/L Urine Color Yellow Urine Appearance Turbid Urine pH 5.5 (5.0-9.0) Ur Specific [place] 1.020 (1.005-1.025) Urine Protein 30 (1+) H (Neg-Trace) mg/dL Urine Glucose (UA) Negative (Negative) mg/dL Urine Ketones Negative (Negative) mg/dL Urine Blood Moderate (2+) H (Negative) Urine Nitrite Positive H (Negative) Ur Leukocyte Esterase Large (3+) H (Negative) Urine RBC 3-5 H (0-2) /HPF Urine WBC >50 H (0-5) /HPF Ur Squamous Epith Cells 0-2 (0-2) /HPF Urine Bacteria Trace (None Seen) Hyaline Casts 0-2 (0-2) /LPF Influenza Type A (PCR) NEGATIVE (Negative) Influenza Type B (PCR) NEGATIVE (Negative) RSV RNA Qual (PCR) NEGATIVE (Negative) SARS-CoV-2 RNA (RT-PCR) NEGATIVE (Negative) Radiology Impression Discussion of test interpretation with radiology: I have reviewed the radiologist's reading. Radiologist Impression: CT head/brain wo IV con IMPRESSION: Extensive bilateral periventricular and central white matter diminished attenuation. This is nonspecific, but could be related to chronic small vessel ischemic disease. There is cerebral volume loss with prominence. No acute intracranial abnormality. Dictated By: Guanaco Ceja XR chest 1V IMPRESSION: Low lung volumes. Bilateral mid to lower lung field increased markings and linear opacities at the lung bases likely represent atelectasis. A developing infiltrate cannot be excluded. Dictated By: Guanaco Ceja Discharge Plan Discharge Clinical Impression: Cellulitis of hand, right, Altered mental status, Urinary tract infection Patient Disposition: Admitted As Inpatient Prescriptions: No Action guaifenesin 100 mg/5 mL Liquid 200 mg PO Q4H PRN (Reason: Cough) magnesium hydroxide 400 mg/5 mL Suspension 30 ml PO BEDTIME PRN (Reason: Constipation) cyanocobalamin (vitamin B-12) 500 mcg Tablet 500 mcg PO DAILY sodium chloride 0.65 % Aerosol,A[facility] [place] 2 spray INTRANASAL Q4H PRN (Reason: dryness) quetiapine [Seroquel] 25 mg Tablet 12.5 mg PO BEDTIME albuterol sulfate 2.5 mg /3 mL (0.083 %) Solution For Nebulization 2.5 mg INHALATION Q4H PRN (Reason: SOB) ferrous sulfate 325 mg (65 mg iron) Tablet 325 mg PO BID alum-mag hydroxide-simeth 200-200-20 mg/5 mL Suspension 30 ml PO QID PRN (Reason: GI UPSET/HEARTBURN) Rx Instructions: administer between meals and at bedtime escitalopram oxalate [Lexapro] 5 mg Tablet 5 mg PO DAILY cholecalciferol (vitamin D3) 25 mcg (1,000 unit) Tablet 25 mcg PO DAILY loratadine 10 mg Capsule 10 mg PO DAILY carboxymethylcellulose sodium 1 % Drops 2 drp ophthalmic (eye) TID loperamide 2 mg tablet 2 mg PO TID PRN (Reason: Diarrhea) Rx Instructions: administer after each loose stool until symptoms controlled; do not exceed 8 mg per 24 hrs acetaminophen 325 mg capsule 650 mg PO Q4H PRN (Reason: pain or fever) bisacodyl 5 mg tablet 10 mg PO BEDTIME Fleet Enema 19-7 gram/118 mL enema 118 ml IN DAILY PRN (Reason: Constipation)
[2023-05-22 04:34] LABS: MANUAL DIFF FLAG NO
[2023-05-22 04:35] LABS: Basophils Percent Auto 0.1 % (0-2); Eosinophils Absolute Auto 0.4 X10*3/uL (0.0-0.4); Eosinophils Percent Auto 5.2 % (0-4); Hematocrit 33.2 % (42.0-52.0); Hemoglobin 10.7 g/dl (14.0-18.0); Imm Gran Abs Auto 0.03 X10*3/uL (0.00-0.03); Imm Gran Pct Auto 0.4 % (0.0-0.4); Lymphocytes Absolute Auto 1.1 X10*3/uL (1.2-4.9); Lymphocytes Percent Auto 13.6 % (20-40); Mean Corpuscular HGB Conc 32.2 g/dl (31.0-36.0); Mean Corpuscular Hemoglobin 30.4 pg (27.0-33.0); Mean Corpuscular Volume 94.3 fL (80.0-98.0); Mean Platelet Volume 9.7 fL (9.4-12.4); Monocytes Absolute Auto 0.8 X10*3/uL (0.1-1.2); Monocytes Percent Auto 9.1 % (2-11); Neutrophils Percent Auto 71.6 % (45-73); Platelet Count 311 X10*3/uL (160-400); Red Blood Count 3.52 X10*6/uL (4.60-5.80); Red Cell Distribution Width 13.1 % (11.0-16.0); White Blood Count 8.4 X10*3/uL (4.8-10.8)
[2023-05-22 04:41] LABS: Glucose, Whole Blood 100 mg/dL (60-115)
[2023-05-22 04:50] LABS: Alanine Aminotransferase 6 U/L (0-40); Albumin Level 3.4 g/dL (3.5-5.0); Alkaline Phosphatase 67 U/L (39-117); Anion Gap 11 (12-20); Aspartate Amino Transferase 10 U/L (5-37); Bilirubin Total 0.2 mg/dL (0.0-1.0); Blood Urea Nitrogen 19 mg/dL (9-16); Calcium 8.9 mg/dL (8.4-10.2); Carbon Dioxide 27 mmol/L (22-29); Chloride 106 mmol/L (96-108); Creatinine Clr Calc Pharmacy 52.7; Estimated Glomerular Filt Rate > 60; Glucose Random 104 mg/dL (60-115); Lipase 26 U/L (8-78); Potassium 4.1 mmol/L (3.3-5.1); Sodium 140 mmol/L (135-145)
[2023-05-22 04:54] LABS: B Type Natriuretic Peptide 187 pg/mL (<100); Troponin-I High Sensitivity 11.6 ng/L (<3.5-35.0)
[2023-05-22] MEDS: Albuterol Sulfate 2.5 MG, Albuterol/Iprat 2.5/0.5MG 3 ML 3 ML INHALE (05:07)
--- NOTE | 2023-05-22 05:09 | PC.NURSE ---
upon initial assessment this RN noticed Right hand redness, swelling, outlined by nurse at [facility]. This RN called nurse at [facility] to inquire about cellulitis , nurse reported the redness was noticed monday night has not been seen by their medical team yet. outlined to see progression. MD Humphrey notified.
[2023-05-22 05:12] LABS: Influenza A PCR NEGATIVE (Negative); Influenza B PCR NEGATIVE (Negative); Resp Syncy Virus RNA Qual PCR NEGATIVE (Negative); SARS COV2 PCR INHOUSE NEGATIVE (Negative)
[2023-05-22] MEDS: Albuterol Sulfate 2.5 MG, Albuterol Sulfate (0.083%) 2.5 MG 5 MG INHALE (05:23)
[2023-05-22 05:49] LABS: Appearance Urine Turbid; Color Urine Yellow; Glucose Urine UA Negative (Negative); Leukocyte Esterase Urine Large (3+) (Negative); Nitrite Urine Positive (Negative); PH 5.5 (5.0-9.0); UMIC TRIGGER UACC YES; Urine Blood Moderate (2+) (Negative); Urine Ketones Negative (Negative); Urine Protein 30 (1+) mg/dL (Neg-Trace)
[2023-05-22 05:58] LABS: Bacteria Urine Trace (None Seen); Hyaline Casts Urine 0-2 /LPF (0-2); Squamous Epithelial Cell Urine 0-2 /HPF (0-2); UACC Culture Trigger YES; WBC Urine >50 /HPF (0-5)
[2023-05-22] MEDS: Piperacillin Sodium/Tazobactam 3.375 GM in 0.9 % Sodium Chloride 50 ML IV (07:24)
--- NOTE | 2023-05-22 07:31 | PC.NURSE ---
pt is alert but slightly confused at baseline, able to state where he is but does not know the month or year, skin pwd, reparations even and unlabored, ls lower bases expiratory wheezing, sating 92% on room air, pt denies pain at this time, but his right hand is red/swollen , [facility] the area with a marker. vs stable
[2023-05-22 07:35] LABS: Troponin-I High Sensitivity 9.2 ng/L (<3.5-35.0)
--- NOTE | 2023-05-22 08:54 | PHA.MEDREC ---
Pharmacy Consult ? Medication Reconciliation Pharmacy has completed the medication reconciliation List from [facility].
--- NOTE | 2023-05-22 09:55 | PM.IMHP ---
History of Present Illness Date of Service: 05/22/23 Chief Complaint: altered mental status An 87-year-old male with a history of dementia, Crohn's disease, chronic iron deficiency anemia, non-rheumatic severe aortic stenosis, iron-deficient anemia, depression, hyperlipidemia, ulcerative colitis, and hypertension was brought from a SNF ([facility]) to be assessed for acute altered mental status. The patient was able to identify himself and was aware of being in the hospital, but could not provide details surrounding the reason he's here. According to the records, he woke up around 2 a.m. and was confused, not responding to questions appropriately, which is different from his baseline. However, upon evaluation in the ED, he seemed clear. He was noted to have redness on his right hand consistent with cellulitis. A CT of the head showed no acute findings, and a urinalysis was positive for UTI. He was given Zosyn. Review of Systems Review of Systems: Gen: no fever Resp: no sob, no cough CV: no chest, no CORRAL, no leg edema GI: No n/v, no abd pain Neuro: some confusion Yes all other systems are reviewed and are negative [facility] Medical History Nonrheumatic aortic (valve) stenosis Reducible right inguinal hernia Small bowel obstruction Dementia Social History Household Members: Other Household Members Other:: From [place] Housing: Long Term Housing Other:: [facility] Unable to assess alcohol history related to: Unknown Alcohol intake: former Patient Tobacco Use Status: Former Tobacco user Smoked in Last 30 Days: No Use of substances other than those prescribed or required for medical reasons: Unable to respond Currently Displaying Signs/Symptoms of Drug Intoxication Withdrawal: No Advance Directives: Yes Advance Directives on File: Yes Advance Directives Date on File: 03/03/22 Recently lost weight without trying: Unsure service: Yes Meds Allergies Allergy/AdvReac Type Severity Reaction Status Date / Time No Known Allergies Allergy Verified 03/14/23 09:23 Active Medications: Current Medications Acetaminophen (Acetaminophen 325 Mg Tablet) 650 mg PO Q6H PRN PRN Reason: Pain, Mild (Pain Scale 1-3) Heparin Sodium (Porcine) (Heparin Sodium,Porcine 5,000 Unit/Ml Vial) 5,000 unit SUBCUT Q12H [facility] Ceftriaxone Sodium 1 gm/ (Sodium Chloride) 50 mls @ 100 mls/hr IV Q24H [facility] Melatonin (Melatonin 3 Mg Tablet) 3 mg PO BEDTIME PRN PRN Reason: Insomnia Ondansetron HCl (Ondansetron Hcl 4 Mg/2 Ml Vial) 4 mg IVPUSH Q8H PRN PRN Reason: Nausea and Vomiting Sodium Chloride (0.9 % Sodium Chloride Flush 3 Ml Syringe) 3 ml IVFLUSH QSHIFT [facility] Home Medications Medication Instructions Recorded Confirmed Last Taken Type albuterol sulfate 2.5 mg/3 mL 2.5 mg inhalation Q4H PRN SOB 12/28/22 05/22/23 12/27/22 History (0.083 %) solution for nebulization aluminum-mag hydroxide-simethicone 30 ml PO QID PRN GI UPSET/HEARTBURN 12/28/22 05/22/23 12/27/22 History 200 mg-200 mg-20 mg/5 mL oral susp carboxymethylcellulose sodium 1 % 2 drp ophthalmic (eye) TID 12/28/22 05/22/23 05/21/23 History eye drops cholecalciferol (vitamin D3) 25 25 mcg PO DAILY 12/28/22 05/22/23 05/21/23 History mcg (1,000 unit) tablet escitalopram oxalate 5 mg tablet 5 mg PO DAILY 12/28/22 05/22/23 05/21/23 History (Lexapro) ferrous sulfate 325 mg (65 mg 325 mg PO BID 12/28/22 05/22/23 05/21/23 History iron) tablet loratadine 10 mg capsule 10 mg PO DAILY 12/28/22 05/22/23 05/21/23 History quetiapine 25 mg tablet (Seroquel) 12.5 mg PO BEDTIME 12/28/22 05/22/23 05/21/23 History acetaminophen 325 mg capsule 650 mg PO Q4H PRN pain or fever 01/19/23 05/22/23 Unknown History bisacodyl 5 mg tablet 10 mg PO BEDTIME 01/19/23 05/22/23 03/01/23 History loperamide 2 mg tablet 2 mg PO TID PRN Diarrhea 01/19/23 05/22/23 Unknown History sodium phosphates 19 gram-7 118 ml [place] DAILY PRN Constipation 01/19/23 05/22/23 Unknown History gram/118 mL enema (Fleet Enema) cyanocobalamin (vitamin B-12) 500 500 mcg PO DAILY 03/02/23 05/22/23 05/21/23 History mcg tablet guaifenesin 100 mg/5 mL oral liquid 200 mg PO Q4H PRN Cough 03/02/23 05/22/23 Unknown History magnesium hydroxide 400 mg/5 mL 30 ml PO BEDTIME PRN Constipation 03/02/23 05/22/23 Unknown History oral suspension sodium chloride 0.65 % nasal spray 2 spray intranasal Q4H PRN dryness 03/02/23 05/22/23 Unknown History aerosol Physical Exam Vital Signs and Narrative: Vital Signs: Last Vital Signs Temp 98.3 F 05/22/23 07:29 Pulse 95 05/22/23 07:29 Resp 18 05/22/23 07:29 BP 123/62 05/22/23 07:29 Pulse Ox 95 05/22/23 08:02 O2 Del Method Nasal Cannula 05/22/23 08:02 O2 Flow Rate 2 05/22/23 08:02 BMI result Body Mass Index 32.5 Constitutional: Alert, in no distress, overweight, some confusion Mental Status: Oriented to person, place and time. Eyes: Pupils are equal, round and reactive to light. Ear, Nose and Throat: Oropharynx clear, mucous membranes moist. Respiratory: Clear to auscultation. No wheezing, rales or rhonchi. Cardiovascular: S1 S2 regular. No murmurs, rubs or gallops. Gastrointestinal: Abdomen soft, non-tender, non-distended. Normal bowel sounds.? Neurologic: Cranial nerves II-XII grossly intact. No focal neurological deficits. Moves all extremities spontaneously.? Skin: No rashes or lesions.? Musculoskeletal: No cyanosis or clubbing. Psychiatric: Normal mood and affect? Results Labs 05/22/23 04:28 05/22/23 04:28 Labs: Laboratory Results - last 24 hr 05/22/23 05/22/23 05/22/23 04:28 04:38 05:43 MCV 94.3 MCH 30.4 MCHC 32.2 RDW 13.1 Plt Count 311 MPV 9.7 Immature Gran % (Auto) 0.4 Neut % (Auto) 71.6 Lymph % (Auto) 13.6 L [place] % (Auto) 9.1 Eos % (Auto) 5.2 H Baso % (Auto) 0.1 Lymph # (Auto) 1.1 L [place] # (Auto) 0.8 Eos # (Auto) 0.4 Baso # (Auto) 0.0 Abs Immat Gran (auto) 0.03 Absolute Neuts (auto) 6.0 Absolute Nucleated RBC 0.000 Nucleated RBC % (auto) 0.0 Anion Gap 11 L Estim Creat Clear Calc 52.7 Estimated GFR > 60 POC Glucose 100 Random Glucose 104 Lactic Acid Calcium 8.9 Total Bilirubin 0.2 AST 10 ALT 6 Alkaline Phosphatase 67 Troponin I High Sens 11.6 D B-Natriuretic Peptide 187 H Total Protein 7.0 Albumin 3.4 L Lipase 26 Urine Color Yellow Urine Appearance Turbid Urine pH 5.5 Ur Specific [place] 1.020 Urine Protein 30 (1+) H Urine Glucose (UA) Negative Urine Ketones Negative Urine Blood Moderate (2+) H Urine Nitrite Positive H Ur Leukocyte Esterase Large (3+) H Urine RBC 3-5 H Urine WBC >50 H Ur Squamous Epith Cells 0-2 Urine Bacteria Trace Hyaline Casts 0-2 Influenza Type A (PCR) NEGATIVE Influenza Type B (PCR) NEGATIVE RSV RNA Qual (PCR) NEGATIVE SARS-CoV-2 RNA (RT-PCR) NEGATIVE 05/22/23 07:07 MCV MCH MCHC RDW Plt Count MPV Immature Gran % (Auto) Neut % (Auto) Lymph % (Auto) [place] % (Auto) Eos % (Auto) Baso % (Auto) Lymph # (Auto) [place] # (Auto) Eos # (Auto) Baso # (Auto) Abs Immat Gran (auto) Absolute Neuts (auto) Absolute Nucleated RBC Nucleated RBC % (auto) Anion Gap Estim Creat Clear Calc Estimated GFR POC Glucose Random Glucose Lactic Acid 2.0 Calcium Total Bilirubin AST ALT Alkaline Phosphatase Troponin I High Sens 9.2 B-Natriuretic Peptide Total Protein Albumin Lipase Urine Color Urine Appearance Urine pH Ur Specific [place] Urine Protein Urine Glucose (UA) Urine Ketones Urine Blood Urine Nitrite Ur Leukocyte Esterase Urine RBC Urine WBC Ur Squamous Epith Cells Urine Bacteria Hyaline Casts Influenza Type A (PCR) Influenza Type B (PCR) RSV RNA Qual (PCR) SARS-CoV-2 RNA (RT-PCR) Imaging Radiologist's Impressions: Impressions Chest X-Ray 05/22/23 04:20 IMPRESSION: Low lung volumes. Bilateral mid to lower lung field increased markings and linear opacities at the lung bases likely represent atelectasis. A developing infiltrate cannot be excluded. Head CT 05/22/23 05:05 IMPRESSION: Extensive bilateral periventricular and central white matter diminished attenuation. This is nonspecific, but could be related to chronic small vessel ischemic disease. There is cerebral volume loss with prominence. No acute intracranial abnormality. Assessment and Plan (1) Urinary tract infection: Status: Acute (2) Metabolic encephalopathy: Status: Acute Plan 87/m with dementia, here with AMS and found to have UTI with metabolic encephalopathy, right hand cellulitis #Metabolic encephalopathy due to UTI #UTI -Given Zosyn in ED, will add Ceftriaxone and follow culture #Cellulitis of the right hand--Doxycyline and follow clinically #Dementia/mood disorder--continue Lexapro and Seroquel #Iron Def anemia--Iron supplement #?Underlying COPD--contnue bronchodilators DVT prophylaxis--heparin DNR/DNI Admission for at least 2 midnights for the management of UTI encephalopathy, cellulitis of hand and receiving IV Abx Quality Stroke Does the patient have a stroke diagnosis?: No VTE Prior VTE?: No VTE Risk Level:: Medical - moderate - high VTE Device Contraindication: Treatment Not Indicated VTE Drug Contraindication: N/A - Med Ordered
[2023-05-22] MEDS: cefTRIAXone sodium 1 GM in 0.9 % Sodium Chloride 50 ML IV (11:00)
[2023-05-22] MEDS: Heparin Sodium,Porcine 5,000 UNIT/ML VIAL 5000 UNIT SUBCUT ×2 (11:00→20:46)
--- NOTE | 2023-05-22 11:15 | PC.NURSE ---
attempted to medicated the pt with his pills with pudding and applesauce pt refusing to take the meds and keeps spitting them out, pt also pilled his iv out and another had to be started and wrapped
--- NOTE | 2023-05-22 12:18 | MHC.CM.PN ---
pt is a resident of [facility] where he will return when dcd t/m left for pts hcp chioma dodson [phone] pt will need bls transport
[2023-05-22] MEDS: Doxycycline Hyclate 100 MG in 0.9 % Sodium Chloride 250 ML 166.67 MG IV ×2 (12:31→22:52)
[2023-05-22] MEDS: ondansetron HCL 4 MG/2 ML VIAL IVPUSH (18:04)
[2023-05-22] MEDS: 0.9 % Sodium Chloride Flush 3 ML SYRINGE IVFLUSH ×2 (18:05→20:47)
[2023-05-22] MEDS: Ferrous Sulfate 324 MG TABLET.DR PO (20:46)
[2023-05-22] MEDS: bisacodyL 5 MG TABLET.DR 10 MG PO (20:46)
[2023-05-22] MEDS: QUEtiapine Fumarate 25 MG TABLET 12.5 MG PO (20:46)
[2023-05-23 03:22] VITALS: BP 133/62; PULSE 85; RESP 19; TEMP 36.8; O2SAT 94
[2023-05-23 07:40] VITALS: BP 140/66; PULSE 78; RESP 18; TEMP 36.7; O2SAT 93
[2023-05-23] MEDS: 0.9 % Sodium Chloride Flush 3 ML SYRINGE IVFLUSH (07:57)
[2023-05-23] MEDS: Cholecalciferol (Vitamin D3) 25 MCG TABLET PO (07:57)
[2023-05-23] MEDS: Ferrous Sulfate 324 MG TABLET.DR PO (07:57)
[2023-05-23] MEDS: Cyanocobalamin (Vitamin B-12) 500 MCG TABLET PO (07:57)
[2023-05-23] MEDS: Escitalopram Oxalate 5 MG TABLET PO (07:57)
--- NOTE | 2023-05-23 08:27 | P.DS_ITS ---
DS: Providers Provider Date of Service: 05/23/23 Date of admission: 05/22/23 09:51 Primary care physician: Tatum Bunn NP DS: Diagnosis Discharge Diagnosis (1) Urinary tract infection: Status: Acute (2) Metabolic encephalopathy: Status: Acute DS: Summary Hospital Course Hospital Course: admission hpi An 87-year-old male with a history of dementia, Crohn's disease, chronic iron deficiency anemia, non-rheumatic severe aortic stenosis, iron-deficient anemia, depression, hyperlipidemia, ulcerative colitis, and hypertension was brought from a SNF ([facility]) to be assessed for acute altered mental status. The patient was able to identify himself and was aware of being in the hospital, but could not provide details surrounding the reason he's here. According to the records, he woke up around 2 a.m. and was confused, not responding to questions appropriately, which is different from his baseline. However, upon evaluation in the ED, he seemed clear. He was noted to have redness on his right hand consistent with cellulitis. A CT of the head showed no acute findings, and a urinalysis was positive for UTI. He was given Zosyn. Hospital course: The patient presented with encephalopathy, ct head showed no acute finding, UA was consistent with UTI as source of encephalopathy, he was also noted to have a redness of above right hand consistent with cellulitis. UTI was treated initially with Zosyn x 1 in the ED, and upon admission was started on Ceftriaxone; Cellulitis of the hand was treaed with IV Doxycline which will be changed to PO upon discharged. His mental status is back to baseline with underlying dementia. He will be discharged with PO Cefuroxime 250 mg twice daily for 5 more days to complete treatement for UTI and Doxycline 100 mg twice daily for 5 days for treatment of cellulitis. Disposition plan was discused with patient's contact. Patient will have an outpatient Nuclear medicine work up with urology Time Attestation Discharge coordination time: Greater than 30 minutes Quality: Safe Use of Opioids Does Pt have an Active Cancer Diagnosis on the Problem List?: No Quality: Stroke Does the patient have a stroke diagnosis?: No Physical Exam Vital Signs: Vital Signs: Last Vital Signs Temp 98.0 F 05/23/23 07:40 Pulse 78 05/23/23 07:40 Resp 18 05/23/23 07:40 BP 140/66 H 05/23/23 07:40 Pulse Ox 93 05/23/23 07:40 O2 Del Method Room Air 05/23/23 07:40 O2 Flow Rate 2 05/22/23 08:02 BMI result Body Mass Index 32.5 General: AO X 2, no acute distress Resp: CTA bilateral CVS: S1,S2,RRR GI: +BS, NT, no distention Skin: No rash Neuro: motor grossly intact Psych: appropriate affect DS: Data Data Completed and Pending Completed studies during hospitalization [Text1]: Procedures Supplement Right Inguinal Region with Synthetic Substitute, Open Approach (03/02/23) Labs on day of discharge: Preliminary micro results at discharge 05/22/23 Unknown Urine Culture - Preliminary Urine Catheterized - Straight Catheter Culture in progress. Discharge Plan Discharge Anticipated Discharge Date/Time: 05/23/23 08:21 Patient Disposition: Xfer SNF Discharge Diagnosis: Metabolic encephalopathy, UTI, cellulitis of the hand Referrals: [facility] [Outside] - 1 Day (LTC) Tatum Bunn NP [Primary Care Provider] - 1 Week Discharge Medications: New doxycycline monohydrate 100 mg Capsule 100 mg PO Q12H Qty: 10 0RF cefuroxime axetil 250 mg tablet 250 mg PO BID 3 Days Qty: 6 0RF Rx Instructions: next dose AM 05/24 Continued guaifenesin 100 mg/5 mL Liquid 200 mg PO Q4H PRN (Reason: Cough) magnesium hydroxide 400 mg/5 mL Suspension 30 ml PO BEDTIME PRN (Reason: Constipation) cyanocobalamin (vitamin B-12) 500 mcg Tablet 500 mcg PO DAILY sodium chloride 0.65 % Aerosol,[place] 2 spray INTRANASAL Q4H PRN (Reason: dryness) quetiapine [Seroquel] 25 mg Tablet 12.5 mg PO BEDTIME albuterol sulfate 2.5 mg /3 mL (0.083 %) Solution For Nebulization 2.5 mg INHALATION Q4H PRN (Reason: SOB) ferrous sulfate 325 mg (65 mg iron) Tablet 325 mg PO BID alum-mag hydroxide-simeth 200-200-20 mg/5 mL Suspension 30 ml PO QID PRN (Reason: GI UPSET/HEARTBURN) Rx Instructions: administer between meals and at bedtime escitalopram oxalate [Lexapro] 5 mg Tablet 5 mg PO DAILY cholecalciferol (vitamin D3) 25 mcg (1,000 unit) Tablet 25 mcg PO DAILY loratadine 10 mg Capsule 10 mg PO DAILY carboxymethylcellulose sodium 1 % Drops 2 drp ophthalmic (eye) TID loperamide 2 mg tablet 2 mg PO TID PRN (Reason: Diarrhea) Rx Instructions: administer after each loose stool until symptoms controlled; do not exceed 8 mg per 24 hrs acetaminophen 325 mg capsule 650 mg PO Q4H PRN (Reason: pain or fever) bisacodyl 5 mg tablet 10 mg PO BEDTIME Fleet Enema 19-7 gram/118 mL enema 118 ml [place] DAILY PRN (Reason: Constipation) Discharge Orders: Discharge Order (Routine); Ordered 05/23/23 Ordered By: Kt Jacob Diet: Advance to usual diet Activity on Discharge: As tolerated Stand Alone Forms: Patient Portal Discharge page Care Plan Goals: recovery from encephalopathy, uti and cellulitis Health Concerns: uti cellulitis encephalopathy Plan of Treatment: take Doxycylcine and Cefuroxime to treat uti, and cellulitis and follow up with your primary provider in a week Assessment: see above
[2023-05-23] MEDS: Heparin Sodium,Porcine 5,000 UNIT/ML VIAL 5000 UNIT SUBCUT (09:00)
[2023-05-23] MEDS: cefTRIAXone sodium 1 GM in 0.9 % Sodium Chloride 50 ML IV (09:00)
[2023-05-23] MEDS: Doxycycline Monohydrate 100 MG CAPSULE PO (10:21)
--- NOTE | 2023-05-23 10:33 | MHC.CM.PN ---
EMR reviewed. Per MD rounds [facility] B[facility] scheduled for 1pm. CM spoke with HCP/friend Ashley @ [phone] to inform of dc. IMM verbally delivered. Copy left w/ belongings per request. RN, and facility aware. DC summary faxed to Angel, nursing supervisor metal furniture fabrication.
--- NOTE | 2023-05-23 11:40 | PC.NURSE ---
MD Olivarez paged at 11:37 for NM scan? Priority, MD Jacob plan to d/c pt back to SNF at 1pm. Hospitalist updated with NM order, could be done out patient. Awaiting response from MD Olivarez.
--- NOTE | 2023-05-23 11:42 | PC.NURSE ---
NM Tech Charissa updated.
== END 2023-05-23 13:02 | disposition skilled nursing facility (03) | DRG 602 ==
LOC: HO.ED 07:00 → HO.EDOVER 10:04 → HO.S3 10:28
PROVIDERS: Admitting Provider Internal Medicine; Emergency Provider Emergency Medicine Emergency Medical Services; PCP Nurse Practitioner; Visit Provider Internal Medicine
DX: L03.113 Cellulitis of right upper limb (principal); G93.41 Metabolic encephalopathy; N39.0 Urinary tract infection, site not specified; Z66 Do not resuscitate; F03.90 Unspecified dementia, unspecified severity, without behavioral disturbance, psychotic disturbance, mood disturbance, and anxiety; D50.9 Iron deficiency anemia, unspecified; J44.9 Chronic obstructive pulmonary disease, unspecified; Z20.822 Contact with and (suspected) exposure to COVID-19; Z87.891 Personal history of nicotine dependence; Z79.899 Other long term (current) drug therapy
CPT/HCPCS: 0241U; 36415; 70450; 71045; 80053; 81001; 82947; 83605; 83690; 83880; 84484; 85025; 87040; 87086; 87088; 87186; 94640; 99285; J0696; J1644; J2405; J2543

== ENCOUNTER → 2023-05-22 09:51 | Outpatient (BNV) | payer OTHER, MEDICARE, SELFPAY | PROVIDERS: Admitting Provider Internal Medicine; Emergency Provider Emergency Medicine Emergency Medical Services; PCP Nurse Practitioner; Visit Provider Internal Medicine | DX: N39.0 Urinary tract infection, site not specified (principal); G93.41 Metabolic encephalopathy | CPT/HCPCS: 99223; 99239 ==

== ENCOUNTER → 2023-05-25 09:14 | Outpatient (REF) | payer MEDICARE, SELFPAY ==
--- NOTE | ~2023-05-25 | NM_ITS ---
EXAMINATION: NM BONE SCAN OF THE WHOLE BODY CLINICAL INFORMATION: Prostate cancer, increased PSA. COMPARISON: No previous bone scan is available for comparison. A radiograph of the chest dated 05/22/[address] scan of the head on the same date are available for comparison. TECHNIQUE: Multiple gamma scintillation camera images of the whole body were performed 3 hours following the intravenous administration of 35 mCi Tc-99m MDP. FINDINGS: In the head, no significant abnormalities are present. In the thoracic cage and upper extremities, there is minimally increased activity at the costochondral junction of the right fourth rib. There is mildly increased activity in the sternoclavicular joints bilaterally, much more prominently on the right. Foci of mildly increased activity are present in the left hand and both wrists, likely arthritic. In the spine, no significant abnormalities are present. In the pelvis, there is mildly increased activity in the inferior aspects of the sacroiliac joints bilaterally, likely degenerative. In the lower extremities, there is minimally increased activity in the medial compartment of the right knee. No other definite bony abnormalities are noted. The urinary bladder and faint visualization of both kidneys are noted. NM/NM bone scan whole body IMPRESSION: A few mild nonspecific abnormalities are noted as described above and these are all likely arthritic or traumatic in etiology. None of these abnormalities is strongly suspicious for metastatic disease.
== END ==
LOC: HO.NUCMED 09:14
PROVIDERS: PCP Internal Medicine Medical Oncology; Visit Provider Internal Medicine Medical Oncology
DX: C61 Malignant neoplasm of prostate (principal)
CPT/HCPCS: 78306; A9503

== ENCOUNTER 2023-06-07 11:48 | Outpatient (AMB) | payer MEDICARE, SELFPAY ==
--- NOTE | 2023-06-07 11:47 | A.OFFVIS_ITS ---
Intake Intake Visit Reasons: F/u Bone scan results Allergies No Known Allergies Allergy (Verified 03/14/23 09:23) [facility] Medical History Nonrheumatic aortic (valve) stenosis Reducible right inguinal hernia Small bowel obstruction Dementia Social History Household Members: Other Household Members Other:: From [facility] Housing: Custodial Housing Other:: [place] [facility] Unable to assess alcohol history related to: Unknown Alcohol intake: former Patient Tobacco Use Status: Former Tobacco user Advance Directives Date on File: 03/03/22 service: Yes Coding
--- NOTE | 2023-06-07 11:49 | A.OFFVIS_ITS ---
Intake Intake Visit Reasons: F/u Bone scan results Intake Note: [facility] for follow up Prostate Cancer and Bone Scan Results Urology Medications: none Blood Thinner: none Personnel Research Psychologist Required: No Allergies No Known Allergies Allergy (Verified 06/07/23 16:05) Medication List - Last Reconciled 06/07/23 by TORI Whitley acetaminophen 650 mg PO Q4H PRN albuterol sulfate 2.5 mg inhalation Q4H PRN alum-mag hydroxide-simeth 200-200-20 mg/5 mL 30 mL PO QID PRN bisacodyl 10 mg PO BEDTIME carboxymethylcellulose sodium 1% 2 drps ophthalmic (eye) TID cholecalciferol (vitamin D3) 25 mcg PO DAILY cyanocobalamin (vitamin B-12) 500 mcg PO DAILY escitalopram oxalate (Lexapro) 5 mg PO DAILY ferrous sulfate 325 mg PO BID guaifenesin 200 mg PO Q4H PRN loperamide 2 mg PO TID PRN loratadine 10 mg PO DAILY magnesium hydroxide 30 mL PO BEDTIME PRN quetiapine (Seroquel) 12.5 mg PO BEDTIME sodium chloride 0.65% 2 sprays intranasal Q4H PRN sodium phosphates 19-7 gram/118 mL (Fleet Enema) 118 mL [place] DAILY PRN HPI HPI Comments History of Present Illness Details Bryn is a very pleasant 87-year-old male [facility] He has a past medical history of dementia, Crohn's disease, nonrheumatic aortic valve stenosis, iron deficiency anemia, depression, hyperlipidemia, ulcerative colitis, hypertension, chronic kidney disease stage 3, prostate cancer, inguinal hernia repair, and allergic rhinitis. He is being follow-up on today for his malignant neoplasm of the prostate. Of note, patient was seen approximately 3 months ago at which time recommendations were made for a bone scan as well as GnRH injection. Recent bone scan results reviewed with the patient today. No abnormalities to suggest suspicion for metastatic disease. Patient received GnRH injection with nursing 04/14/23. In discussion with provider at [facility] it appears patient has been more fatigued, decreased appetite, with an overall decline. Discussed possibility of being related to recent hormone injection. Discussed importance of having discussion with patient's healthcare proxy to further assess if hormone therapy should be continued in the near future. It appears he underwent XRT in 1998. However, patient has been having rising PSAs. PSAs are as follows: 11/15--11.7 06/16--8.9 01/16--12.9 Patient is a poor historian therefore obtaining history is difficult. During todays assessment patient continues to fall asleep however easily arousable. Nursing offers no urological concerns at this time. In discussion with the patient today he denies any bothersome urinary issues or concerns. [facility] Medical History Nonrheumatic aortic (valve) stenosis Reducible right inguinal hernia Small bowel obstruction Dementia Social History Household Members: Other Household Members Other:: From [employer] [facility] Housing: [facility] Housing Other:: [place] [employer] [facility] Unable to assess alcohol history related to: Unknown Alcohol intake: former Patient Tobacco Use Status: Former Tobacco user Advance Directives Date on File: 03/03/22 service: Yes Review of Systems Const Reports as per HPI Eyes Reports no additional complaints ENT Reports no additional complaints Card Reports as per HPI Resp Reports no additional complaints GI Reports as per HPI Reports as per HPI Musc Reports as per HPI Neuro Reports as per HPI Psych Reports as per HPI Endo Reports no additional complaints Physical Exam Const General: cooperative, comfortable, no acute distress, well developed, alert, awake and tired appearing Orientation/consciousness: oriented to person Limitations: other limitations (bed) HEENT Head: Yes normal to inspection Eyes General: appearance normal, both eyes and all related structures Neck Neck: Yes normal visual inspection Chest Chest palpation & inspection: normal inspection of the chest Resp Effort & Inspection: normal respiratory effort and able to speak in complete sentences Cardio Rate: regular rate GI Other: Patient status post inguinal hernia repair Inspection: Yes normal to inspection General: Yes deferred Neuro General: oriented to person Extrem General: Yes normal to inspection Psych Appearance: well kempt Speech and movement: Clear speech present Attitude: cooperative Insight: Limited insight present (Psych) Judgement: Limited judgement present (Psych) Results Reviewed Results Reviewed: Date of Service: 05/25/23 EXAMINATION: NM BONE SCAN OF THE WHOLE BODY FINDINGS: In the head, no significant abnormalities are present. In the thoracic cage and upper extremities, there is minimally increased activity at the costochondral junction of the right fourth rib. There is mildly increased activity in the sternoclavicular joints bilaterally, much more prominently on the right. Foci of mildly increased activity are present in the left hand and both wrists, likely arthritic. In the spine, no significant abnormalities are present. In the pelvis, there is mildly increased activity in the inferior aspects of the sacroiliac joints bilaterally, likely degenerative. In the lower extremities, there is minimally increased activity in the medial compartment of the right knee. No other definite bony abnormalities are noted. The urinary bladder and faint visualization of both kidneys are noted. IMPRESSION: A few mild nonspecific abnormalities are noted as described above and these are all likely arthritic or traumatic in etiology. None of these abnormalities is strongly suspicious for metastatic disease. Assessment & Plan Assessment & Plan (1) Prostate cancer: Code(s): C61 - Malignant neoplasm of prostate (2) Rising PSA following treatment for malignant neoplasm of prostate: Code(s): R97.21 - Rising PSA following treatment for malignant neoplasm of prostate Plan As recent bone scan results reviewed with the patient today; as noted above. Discussed obtaining PSA and testosterone in 3 months. Discussed with provider having discussion with healthcare proxy regarding continuation of hormone therapy given patient's decline; however will continue to monitor and trend patient's behaviors. Discussed obtaining bone scan every 6 months DEXA every 2 years if going to continue with hormone therapy. Follow-up in 3 months with labs to be completed prior; or sooner with any issues, concerns, and or questions. Orders: Orders Prostate Specific Antigen 3 Months C61 - Malignant neoplasm of prostate, R97.21 - Rising PSA following treatment for malignant neoplasm of prostate Testosterone, Free/Total 3 Months C61 - Malignant neoplasm of prostate, R97.21 - Rising PSA following treatment for malignant neoplasm of prostate Patient Instructions: The patient had an opportunity to ask questions regarding the treatment plan. All questions were answered. Physical exam, labs, and imaging were discussed and reviewed in detail. As well as risks, benefits, and discussion of treatment choices. No major barriers to understanding were identified. The patient expressed understanding and agreement with the above treatment plan. The patient was made aware they should contact our office by phone for worsening of their current condition, the appearance of new symptoms, or with any questions or concerns. Compliance is encouraged with any medications and follow up testing that is ordered. It is a privilege to be allowed the opportunity to p articipate in? your urological care.? Again, if you have any questions or concerns If you have any questions or concerns please do not hesitate to contact me. The office is [phone]. This note is constructed using voice recognition software. While every effort has been made to ensure accuracy bat person errors may have been included. Yours sincerely, TORI Whitley Coding Level of Care Code 46846-Xryy Fac sub, mod Diagnoses Prostate cancer C61 Rising PSA following treatment for malignant neoplasm of prostate R97.21 Time Spent (min) 35
== END 2023-06-07 16:06 | disposition home or self-care (01) ==
LOC: HO.HUSV 11:48
PROVIDERS: PCP Internal Medicine Medical Oncology; Visit Provider Nurse Practitioner Family
DX: C61 Malignant neoplasm of prostate (principal); R97.21 Rising PSA following treatment for malignant neoplasm of prostate
CPT/HCPCS: 99309

== ENCOUNTER 2023-08-22 20:30 | Outpatient (REF) | payer MEDICARE, SELFPAY ==
[2023-08-22 23:44] LABS: OBS Int Ctl Valid YES; OBS1 NEGATIVE (NEGATIVE)
[2023-08-23 12:12] LABS: Adenovirus F 40/41 Not Detected (Not Detect.); Astrovirus Not Detected (Not Detect.); Campylobacter Not Detected (Not Detect.); Cryptosporidium Not Detected (Not Detect.); Cyclospora cayetanensis Not Detected (Not Detect.); E. coli EAEC Not Detected (Not Detect.); E. coli EPEC Not Detected (Not Detect.); E. coli ETEC Not Detected (Not Detect.); E. coli STEC Not Detected (Not Detect.); Entamoeba histolytica Not Detected (Not Detect.); Giardia lamblia Not Detected (Not Detect.); Norovirus GI/GII Not Detected (Not Detect.); Plesiomonas shigelloides Not Detected (Not Detect.); Rotavirus A Not Detected (Not Detect.); Salmonella Not Detected (Not Detect.); Sapovirus Not Detected (Not Detect.); Shigella sp./EIEC Not Detected (Not Detect.); Vibrio Not Detected (Not Detect.); Vibrio Cholerae Not Detected (Not Detect.); Yersinia enterocolitica Not Detected (Not Detect.)
== END 2023-08-22 20:31 | disposition home or self-care (01) ==
LOC: HO.HSH3W 20:30
PROVIDERS: Visit Provider Internal Medicine Endocrinology, Diabetes & Metabolism
DX: R19.7 Diarrhea, unspecified (principal); K30 Functional dyspepsia
CPT/HCPCS: 82272; 87507

== ENCOUNTER 2023-08-23 07:11 | Outpatient (REF) | payer MEDICARE, SELFPAY ==
[2023-08-23 07:16] LABS: MANUAL DIFF FLAG NO
[2023-08-23 07:44] LABS: Basophils Percent Auto 0.3 % (0-2); Eosinophils Absolute Auto 0.5 X10*3/uL (0.0-0.4); Eosinophils Percent Auto 6.3 % (0-4); Hemoglobin 10.7 g/dl (14.0-18.0); Imm Gran Abs Auto 0.03 X10*3/uL (0.00-0.03); Imm Gran Pct Auto 0.4 % (0.0-0.4); Lymphocytes Absolute Auto 1.3 X10*3/uL (1.2-4.9); Lymphocytes Percent Auto 18.5 % (20-40); Mean Corpuscular HGB Conc 33.4 g/dl (31.0-36.0); Mean Corpuscular Hemoglobin 31.3 pg (27.0-33.0); Mean Corpuscular Volume 93.6 fL (80.0-98.0); Mean Platelet Volume 11.1 fL (9.4-12.4); Monocytes Absolute Auto 0.5 X10*3/uL (0.1-1.2); Monocytes Percent Auto 7.5 % (2-11); Neutrophils Absolute Auto 4.8 x10*3/uL (2.0-8.3); Platelet Count 319 X10*3/uL (160-400); Red Blood Count 3.42 X10*6/uL (4.60-5.80); Red Cell Distribution Width 13.9 % (11.0-16.0); White Blood Count 7.1 X10*3/uL (4.8-10.8)
[2023-08-23 07:59] LABS: Alanine Aminotransferase 9 U/L (0-40); Albumin Level 3.5 g/dL (3.5-5.0); Alkaline Phosphatase 57 U/L (39-117); Anion Gap 15 (12-20); Aspartate Amino Transferase 13 U/L (5-37); Bilirubin Total 0.3 mg/dL (0.0-1.0); Blood Urea Nitrogen 20 mg/dL (9-16); Calcium 8.5 mg/dL (8.4-10.2); Carbon Dioxide 20 mmol/L (22-29); Chloride 111 mmol/L (96-108); Estimated Glomerular Filt Rate > 60; Glucose Random 118 mg/dL (60-115); Potassium 3.6 mmol/L (3.3-5.1); Sodium 142 mmol/L (135-145)
== END 2023-08-23 07:12 | disposition home or self-care (01) ==
LOC: HO.HSH3W 07:11
PROVIDERS: Visit Provider Internal Medicine Endocrinology, Diabetes & Metabolism
DX: R19.7 Diarrhea, unspecified (principal)
CPT/HCPCS: 36415; 80053; 85025

== ENCOUNTER 2023-08-28 06:00 | Outpatient (REF) | payer MEDICARE, SELFPAY ==
[2023-08-28 07:45] LABS: PSA,Total (Free>4and<10) 0.72 ng/mL (0.00-4.00)
[2023-08-28 11:13] LABS: MANUAL DIFF FLAG NO
[2023-08-28 11:34] LABS: Prothrombin Time 12.4 SEC (11.1-13.3)
[2023-08-28 11:41] LABS: Basophils Percent Auto 0.3 % (0-2); Eosinophils Absolute Auto 0.5 X10*3/uL (0.0-0.4); Eosinophils Percent Auto 7.1 % (0-4); Hemoglobin 10.6 g/dl (14.0-18.0); Imm Gran Abs Auto 0.03 X10*3/uL (0.00-0.03); Imm Gran Pct Auto 0.5 % (0.0-0.4); Lymphocytes Percent Auto 15.8 % (20-40); Mean Corpuscular HGB Conc 33.1 g/dl (31.0-36.0); Mean Corpuscular Hemoglobin 31.5 pg (27.0-33.0); Mean Corpuscular Volume 95.2 fL (80.0-98.0); Mean Platelet Volume 11.1 fL (9.4-12.4); Monocytes Absolute Auto 0.5 X10*3/uL (0.1-1.2); Monocytes Percent Auto 7.8 % (2-11); Neutrophils Absolute Auto 4.5 x10*3/uL (2.0-8.3); Neutrophils Percent Auto 68.5 % (45-73); Platelet Count 247 X10*3/uL (160-400); Red Blood Count 3.36 X10*6/uL (4.60-5.80); White Blood Count 6.5 X10*3/uL (4.8-10.8)
[2023-08-28 11:48] LABS: Alanine Aminotransferase 9 U/L (0-40); Albumin Level 3.3 g/dL (3.5-5.0); Alkaline Phosphatase 50 U/L (39-117); Anion Gap 13 (12-20); Aspartate Amino Transferase 16 U/L (5-37); Bilirubin Direct 0.2 mg/dL (0.0-0.5); Bilirubin Total 0.2 mg/dL (0.0-1.0); Blood Urea Nitrogen 22 mg/dL (9-16); Carbon Dioxide 21 mmol/L (22-29); Chloride 111 mmol/L (96-108); Estimated Glomerular Filt Rate > 60; Glucose Random 93 mg/dL (60-115); Potassium 4.3 mmol/L (3.3-5.1); Sodium 141 mmol/L (135-145)
[2023-09-02 17:24] LABS: Testosterone, Total 3 ng/dL (250-1100)
== END 2023-08-28 06:01 | disposition home or self-care (01) ==
LOC: HO.HSH3W 06:00
PROVIDERS: Nurse Practitioner; Visit Provider Nurse Practitioner Acute Care
DX: C61 Malignant neoplasm of prostate (principal); Z12.5 Encounter for screening for malignant neoplasm of prostate
CPT/HCPCS: 36415; 80048; 80076; 84153; 84403; 85025; 85610

== ENCOUNTER 2023-09-06 11:55 | Outpatient (AMB) | payer MEDICARE, SELFPAY ==
--- OUTSIDE RECORDS SUMMARY | 2023-09-06 11:57 | XMS_ITS | Patient Health Record ---
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, with unspecified presence of clinical manifestation (I70.203) Active confirmed [id number] Encounters Encounter Location Date Provider Diagnosis [facility] [address] [address] 02/14/2023 Palmer Perez [facility] [address] 02/27/2023 Palmer Perez PLAN OF TREATMENT Pending Test Test Name Order Date X ray : Ankle, left 3V 05/19/2011 [id number] NAIL, 6 OR MORE 05/19/2011 [id number] NAIL, 6 OR MORE 07/21/2011 35464-EGOLBVF NAIL, 6 OR MORE 11/24/2011 81800-KNDFXZP NAIL, 6 OR MORE 02/03/2012 17298-HPVWRUK NAIL, 6 OR MORE 04/05/2012 80676-LGGARWB NAIL, 6 OR MORE 07/05/2012 79575-DTHIGRR NAIL, 6 OR MORE 11/01/2012 47636-SFJHTIB NAIL, 6 OR MORE 02/15/2013 58996-VHNUMQI NAIL, 6 OR MORE 05/17/2013 23960-QYMUCLW NAIL, 6 OR MORE 08/13/2013 52053-KDMMDUT NAIL, 6 OR MORE 12/03/2013 07119-NOTHTGJ NAIL, 6 OR MORE 09/22/2011 71700-HRTYHHN NAIL, 6 OR MORE 03/07/2014 26283-FIRTFGB NAIL, 6 OR MORE 07/14/2014 80094-HFRMYXA NAIL, 6 OR MORE 10/13/2014 64986-OODTAZQ NAIL, 6 OR MORE 01/13/2015 94368-RRTPZZN NAIL, 6 OR MORE 04/17/2015 74362-SSMXCPH NAIL, 6 OR MORE 07/24/2015 06929-VMNEKOD NAIL, 6 OR MORE 10/23/2015 92405-NDTPBBR NAIL, 6 OR MORE 01/29/2016 98711-OBJXZQS NAIL, 6 OR MORE 04/29/2016 95437-SCTXJAA NAIL, 6 OR MORE 07/29/2016 65885-RXQNKKX NAIL, 6 OR MORE 11/04/2016 61251-QOHSXQA NAIL, 6 OR MORE 02/27/2017 85757-DGZDFUO NAIL, 6 OR MORE 05/09/2017 20866-POAPZJB NAIL, 6 OR MORE 07/14/2017 30284-UXQPPXI NAIL, 6 OR MORE 09/15/2017 38100-UFWQUGA NAIL, 6 OR MORE 12/01/2017 36091-WYWWRSK NAIL, 6 OR MORE 02/23/2018 96703-AZHNEDR NAIL, 6 OR MORE 05/11/2018 27528-UOKPGIG NAIL, 6 OR MORE 07/20/2018 30410-NOYCKLC NAIL, 6 OR MORE 10/12/2018 89078-MJVPYAI NAIL, 6 OR MORE 01/01/2019 82125-IZLYCEF NAIL, 6 OR MORE 12/31/2019 88162-FSAPNJM NAIL, 6 OR MORE 07/24/2020 65630-CGFXNQZ NAIL, 6 OR MORE 11/03/2020 97923-FQDCURF NAIL, 6 OR MORE 01/12/2021 65129-JLPRWZI NAIL, 6 OR MORE 03/29/2021 30922-YOVFJYM NAIL, 6 OR MORE 07/12/2021 09960-XRDKAMX NAIL, 6 OR MORE 12/13/2021 19599-QGKSLRT NAIL, 6 OR MORE 09/01/2022 64589-Twpcvdie Plate 02/03/2012 32798-Xozfvhef Plate 07/21/2011 96165-ETPM SKIN LESIONS, 2 TO 4 02/16/20 13 96699-JUGQ SKIN LESIONS, 2 TO 4 11/02/19 13 33490-NWKY SKIN LESIONS, 2 TO 4 01/14/20 15 39201-SJOA SKIN LESIONS, 2 TO 4 10/14/19 15 17178-RJPQ SKIN LESIONS, 2 TO 4 07/15/19 15 74847-DQFO SKIN LESIONS, 2 TO 4 03/07/20 14 04289-UYLH SKIN LESIONS, 2 TO 4 12/04/19 14 98687-FATN SKIN LESIONS, 2 TO 4 08/14/19 14 68604-FZQN SKIN LESIONS, 2 TO 4 05/17/19 14 59335-EIAJ SKIN LESIONS, 2 TO 4 01/02/20 19 20584-AGBF SKIN LESIONS, 2 TO 4 10/13/19 19 10754-RTPS SKIN LESIONS, 2 TO 4 07/21/19 19 46012-FQWW SKIN LESIONS, 2 TO 4 05/11/19 19 08527-AOZU SKIN LESIONS, 2 TO 4 02/24/20 18 42883-KJMZ SKIN LESIONS, 2 TO 4 12/02/19 18 01966-SLMD SKIN LESIONS, 2 TO 4 09/16/19 18 78645-CDER SKIN LESIONS, 2 TO 4 07/15/19 18 04108-TTUB SKIN LESIONS, 2 TO 4 05/09/19 18 46554-JOUW SKIN LESIONS, 2 TO 4 02/28/20 17 36595-IVUF SKIN LESIONS, 2 TO 4 11/05/19 17 64542-KGGP SKIN LESIONS, 2 TO 4 04/29/19 17 99832-CQBW SKIN LESIONS, 2 TO 4 07/30/19 17 85748-RZUI SKIN LESIONS, 2 TO 4 01/29/20 16 48670-VSHM SKIN LESIONS, 2 TO 4 10/23/19 16 46062-XLHJ SKIN LESIONS, 2 TO 4 07/24/19 16 74142-VAIZ SKIN LESIONS, 2 TO 4 04/17/19 16 29463-WAMU SKIN LESIONS, 2 TO 4 09/02/19 23 37293-UYXG SKIN LESIONS, 2 TO 4 12/14/19 02935-CTGE SKIN LESIONS, 2 TO 4 07/13/19 22 48605-GPZG SKIN LESIONS, 2 TO 4 03/29/19 22 12595-GETU SKIN LESIONS, 2 TO 4 01/13/20 21 09020-FIJD SKIN LESIONS, 2 TO 4 11/04/19 21 21118-WJWF SKIN LESIONS, 2 TO 4 07/25/19 21 50048-VCON SKIN LESIONS, 2 TO 4 12/31/19 20 52564-VCFA SKIN LESION 09/22/2011 07403-WSCY SKIN LESION 07/05/2012 59276-OLKK SKIN LESION 04/05/2012 78083-MKBW SKIN LESION 02/03/2012 87570-UXJW SKIN LESION 11/24/2011 Insurance Providers Payer Name Payer Address Payer Phone Subscriber Number Group Number Insured Name Patient Relationship to Insured Coverage Start Date Coverage End Date Medicare [facility] [address] [place] [address] [id number] Bryn Woo Self - patient is the insured [employer] [address] [place] [address] [phone] [id number] Bryn Woo Self - patient is the insured MEDICAL (GENERAL) HISTORY Medical History History ICD Code hypertension transfusions Hiatal hernia cataracts back, hip, knee pain Cholesterol ASO/PVD Arthritis - Degenerative Surgical History Surgery Date(Month/Year) head surgery 2008 neck surgery 2008 Hernia repair 04/11/2012 teeth extraction Hospitalization History Reason Date(Month/Year) [facility]- Fell/ dehydration [facility] [place] [facility] day stay 10/31/2020 [place] [facility] 03/01/17 Patient admitted to [facility] for 1 week for abdominal pain. 12/2012 [facility] for testing 06/07/2012 [facility] for 2 weeks 03/2012
--- NOTE | 2023-09-06 12:00 | A.OFFVIS_ITS ---
Intake Intake Visit Reasons: PSA f/u Supply Chain Procurement Manager Required: No Allergies No Known Allergies Allergy (Verified 09/06/23 23:28) Medication List - Last Reconciled 09/06/23 by TORI Whitley acetaminophen 650 mg PO Q4H PRN albuterol sulfate 2.5 mg inhalation Q4H PRN alum-mag hydroxide-simeth 200-200-20 mg/5 mL 30 mL PO QID PRN bisacodyl 10 mg PO BEDTIME carboxymethylcellulose sodium 1% 2 drps ophthalmic (eye) TID cholecalciferol (vitamin D3) 25 mcg PO DAILY cyanocobalamin (vitamin B-12) 500 mcg PO DAILY escitalopram oxalate (Lexapro) 5 mg PO DAILY ferrous sulfate 325 mg PO BID guaifenesin 200 mg PO Q4H PRN loperamide 2 mg PO TID PRN loratadine 10 mg PO DAILY magnesium hydroxide 30 mL PO BEDTIME PRN quetiapine (Seroquel) 12.5 mg PO BEDTIME sodium chloride 0.65% 2 sprays intranasal Q4H PRN sodium phosphates 19-7 gram/118 mL (Fleet Enema) 118 mL MN DAILY PRN HPI HPI Comments History of Present Illness Details Bryn is a very pleasant 87-year-old male patient of Dr. Gregg who resides at the [facility]. He has a past medical history of dementia, Crohn's disease, nonrheumatic aortic valve stenosis, iron deficiency anemia, depression, hyperlipidemia, ulcerative colitis, hypertension, chronic kidney disease stage 3, prostate cancer, inguinal hernia repair, and allergic rhinitis. He is being follow-up on today for his malignant neoplasm of the prostate. Of note, patient was seen approximately 3 months ago at which time recommendations were made for PSA and testosterone levels to be drawn. These results were reviewed with the patient and nursing today. PSAs: 11/15 11.7, 06/16 8.9, 01/16 12.9, 09/17 0.7 Testosterone: 09/17 3. Patient received GnRH injection with nursing 04/14/23. In discussion with nursing staff and provider at [facility] patient and HCP Ashley after GnRH injection patient experienced fatigued, decreased appetite, with an overall decline and would not like to undergo anymore treatment for prostae cancer at this time as goal of care for this patient is comfort. He underwent XRT in 1998. However, patient had been having a rise in his PSAs. Previous workup has included a bone scan 05/20 noting no abnormalities to suggest suspicion for metastatic disease. Patient is a poor historian therefore obtaining history is difficult however he offers no issues or concerns at this time. When asked he denies any pain or issues with his urination. [facility] Medical History Nonrheumatic aortic (valve) stenosis Reducible right inguinal hernia Small bowel obstruction Dementia Social History Household Members: Other Household Members Other:: [place] Housing: [facility] Housing Other:: [place] Unable to assess alcohol history related to: Unknown Alcohol intake: former Patient Tobacco Use Status: Former Tobacco user Advance Directives Date on File: 03/03/22 service: Yes Review of Systems Const Unobtainable due to mental status Physical Exam Const General: cooperative, comfortable, no acute distress, well developed, alert, awake and tired appearing Orientation/consciousness: oriented to person Limitations: other limitations (bed) HEENT Head: Yes normal to inspection Eyes General: appearance normal, both eyes and all related structures Neck Neck: Yes normal visual inspection Chest Chest palpation & inspection: normal inspection of the chest Resp Effort & Inspection: normal respiratory effort and able to speak in complete sentences Cardio Rate: regular rate GI Other: Patient status post inguinal hernia repair Inspection: Yes normal to inspection General: Yes deferred Neuro General: oriented to person Extrem General: Yes normal to inspection Psych Appearance: well kempt Speech and movement: Clear speech present Attitude: cooperative Insight: Limited insight present (Psych) Judgement: Limited judgement present (Psych) Assessment & Plan Assessment & Plan (1) Prostate cancer: Code(s): C61 - Malignant neoplasm of prostate (2) Rising PSA following treatment for malignant neoplasm of prostate: Code(s): R97.21 - Rising PSA following treatment for malignant neoplasm of prostate Plan Recent PSA and testosterone results reviewed with the patient and nursing today. Discussed serial injections with GnRH injections every 6 months for 18 months; however given patient's previous decline with initial GnRH injection will not proceed at this time. Will proceed with focus on comfort care. Patient with no urological issues or concerns at this time. Follow up PRN. Patient Instructions: The patient had an opportunity to ask questions regarding the treatment plan. All questions were answered. Physical exam, labs, and imaging were discussed and reviewed in detail. As well as risks, benefits, and discussion of treatment choices. No major barriers to understanding were identified. The patient expressed understanding and agreement with the above treatment plan. The patient was made aware they should contact our office by phone for worsening of their current condition, the appearance of new symptoms, or with any questions or concerns. Compliance is encouraged with any medications and follow up testing that is ordered. It is a privilege to be allowed the opportunity to participate in? your urological care.? Again, if you have any questions or concerns If you have any questions or concerns please do not hesitate to contact me. The office is [phone]. This note is constructed using voice recognition software. While every effort has been made to ensure accuracy automatic coin machine mechanic errors may have been included. Yours sincerely, TORI Whitley Coding Level of Care Code 13352-[id number] Fac sub, low Diagnoses Prostate cancer C61 Rising PSA following treatment for malignant neoplasm of prostate R97.21 Time Spent (min) 25
== END 2023-09-06 16:30 | disposition home or self-care (01) ==
LOC: HO.HUSV 11:55
PROVIDERS: PCP Internal Medicine Medical Oncology; Visit Provider Nurse Practitioner Family
DX: C61 Malignant neoplasm of prostate (principal); R97.21 Rising PSA following treatment for malignant neoplasm of prostate
CPT/HCPCS: 99308

== ENCOUNTER 2024-03-26 06:35 | Outpatient (REF) | payer MEDICARE, SELFPAY ==
[2024-03-26 07:38] LABS: Alanine Aminotransferase 17 U/L (0-40); Albumin Level 3.1 g/dL (3.5-5.0); Alkaline Phosphatase 59 U/L (39-117); Anion Gap 12 (12-20); Aspartate Amino Transferase 19 U/L (5-37); Bilirubin Total 0.2 mg/dL (0.0-1.0); Blood Urea Nitrogen 26 mg/dL (9-16); Calcium 8.2 mg/dL (8.4-10.2); Carbon Dioxide 20 mmol/L (22-29); Chloride 113 mmol/L (96-108); Estimated Glomerular Filt Rate > 60; Glucose Random 81 mg/dL (60-115); Potassium 4.1 mmol/L (3.3-5.1); Sodium 141 mmol/L (135-145); Total Protein 6.3 g/dL (6.5-8.0)
== END 2024-03-26 06:36 | disposition home or self-care (01) ==
LOC: HO.HSH3W 06:35
PROVIDERS: Visit Provider Nurse Practitioner
DX: Z20.822 Contact with and (suspected) exposure to COVID-19 (principal)
CPT/HCPCS: 36415; 80053